=== PATIENT | male | born 1995 | race Two or more races ===

== ENCOUNTER 2020-02-12 14:08 | Inpatient (IN) | payer OTHER ==
--- NOTE | 2020-02-12 15:39 | BHS.RME ---
Substance Use & Tx History - Substance Use History Heroin Substance amount: 4-5 bags Frequency of use: Daily Substance route: Inhalation (ex: sniffing or snorting) Date of Last Use: 02/11/20 (First use age 15 y, No OD, has a Narcan kit ) Nicotine Substance amount: one pack Frequency of use: Daily Date of Last Use: 02/12/20 (Began age 11 y) - Last Treatment Date of last treatment: 2014 Treatment type: Substance Use Disorder (BONG) Where was last treatment: Detox Physical/Psych/Mental Status - Behavior General Behavior: Decreased activity Eye Contact: Normal - Cooperativeness Cooperativeness: Cooperative - Thinking Thought Processes: Tight Thought content: Future oriented - Physical Health Problems Is patient presently having any pain?: No Does patient presently have any injuries (include location): No Does patient currently have a fever: No COWS - Scale Resting Pulse: 0= [place] 80 or Below Sweatin=Flushed/Facial Moisture Restless Observation: 1= Difficult to Sit Still Pupil Size: 0= Normal to Room Light Bone or Joint Aches: 2= Severe Diffuse Aches Runny Nose/ Eye Tearin= Runny Nose/Eyes GI Upset > 30mins: 2= Nausea/Diarrhea Tremor Observation: 0= None Yawning Observation: 0= None Anxiety or Irritability: 1=Feels Anxious/Irritable Goose Flesh Skin: 0=Smooth Skin COWS Score: 10
--- NOTE | 2020-02-12 16:41 | HP ---
COWS - Scale Resting Pulse: 0= [place] 80 or Below Sweatin=Flushed/Facial Moisture Restless Observation: 1= Difficult to Sit Still Pupil Size: 1= Pupils >than Normal Bone or Joint Aches: 4=Acute Joint/Muscle Pain Runny Nose/ Eye Tearin= Runny Nose/Eyes GI Upset > 30mins: 3= Vomiting/Diarrhea (vomiting x 2, diarrhea x 3) Tremor Observation: 0= None Yawning Observation: 1= 1-2x During Session Anxiety or Irritability: 2=Irritable/Anxious Goose Flesh Skin: 3=Piloerection COWS Score: 19 CIWA Score - Admission Criteria OASAS Guidelines: Admission for Medically Managed Detox: Requires at least one of the followin. CIWA greater than 12 2. Seizures within the past 24 hours 3. Delirium tremens within the past 24 hours 4. Hallucinations within the past 24 hours 5. Acute intervention needed for co occurring medical disorder 6. Acute intervention needed for co occurring psychiatric disorder 7. Severe withdrawal that cannot be handled at a lower level of care (continued vomiting, continued diarrhea, abnormal vital signs) requiring intravenous medication and/or fluids 8. Admitting History and Physical - Smoking History Smoking history: Current every day smoker Have you smoked in the past 12 months: Yes Aproximately how many cigarettes per day: 6 - Alcohol/Substance Use Hx Alcohol Use: Yes Admission [facility] Chief Complaint: Seeking admission to detox from heroin Allergies/Adverse Reactions: Allergies Allergy/AdvReac Type Severity Reaction Status Date / Time penicillin G Allergy Unknown UNKNOWN Verified 02/12/20 17:27 History of Present Illness: 24 years old male with 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 He has medical history of asthma and psych. history of depression, bipolar disorder, ADHD and anxiety. Denies suicide attempt/ suicidal ideation at this time. Patient denies blackouts or overdose. As documented 04/20/2015, patient in his prior admission was noncompliant with unit regulations, had verbal altercations with staff, refused medical interventions and had difficulties following directions. Treatment contract obtained by the counselor, Mr. Aj Hernandez. Patient agrees to administrative discharge for any violations as detailed above and to complete detoxification as specified. Exam Limitations: No Limitations - Ebola screening Have you traveled outside of the country in the last 21 days: No Have you had contact with anyone from an Ebola affected area: No Have you been sick,other than usual withdrawal symptoms: No Do you have a fever: No - Review of Systems Constitutional: Chills, Malaise, Changes in sleep EENT: reports: No Symptoms Reported, Nose Congestion Respiratory: reports: No Symptoms reported Cardiac: reports: No Symptoms Reported GI: reports: Diarrhea, Nausea, Poor Appetite, Poor Fluid Intake, Vomiting, Abdominal cramping Musculoskeletal: reports: Back Pain, Muscle Pain Integumentary: reports: Dryness, Flushing Neuro: reports: Headache, Tremors Endocrine: reports: No Symptoms Reported Hematology: reports: No Symptoms Reported Psychiatric: reports: Mood/Affect Appropiate, Orientated x3, Anxious, Depressed Other Systems: Reviewed and Negative Patient History - Patient Medical History Hx Anemia: No Hx Asthma: Yes (Not on medication) Hx Chronic Obstructive Pulmonary Disease (COPD): No Hx Cancer: No Hx Cardiac Disorders: No Hx Congestive Heart Failure: No Hx Hypertension: No Hx Hypercholesterolemia: No Hx Pacemaker: No HX Cerebrovascular Accident: No Hx Seizures: No Hx Dementia: No Hx Diabetes: No Hx Gastrointestinal Disorders: No Hx Liver Disease: No Hx Genitourinary Disorders: No Hx Sexually Transmitted Disorders: No Hx Renal Disease (ESRD): No Hx Thyroid Disease: No Hx Human Immunodeficiency Virus (HIV): No Hx Hepatitis C: No Hx Depression: Yes (+ Anxiety - Not on medication) Hx Suicide Attempt: No (Denies suicidal ideation at this time) Hx Bipolar Disorder: No Hx Schizophrenia: No - Patient Surgical History Past Surgical History: No Hx Neurologic Surgery: No Hx Cataract Extraction: No Hx Cardiac Surgery: No Hx Lung Surgery: No Hx Abdominal Surgery: No Hx Appendectomy: No Hx Cholecystectomy: No Hx Genitourinary Surgery: No Hx Section: No Hx Orthopedic Surgery: No Anesthesia Reaction: No - PPD History Previous Implant?: Yes Documented Results: Negative w/proof Implanted On Prior R Admission?: Yes Date: 04/20/15 PPD to be Administered?: Yes - Reproductive History Patient is a Female of Child Bearing Age (11 -55 yrs old): No (Male) - Smoking Cessation Smoking history: Current every day smoker Have you smoked in the past 12 months: Yes Aproximately how many cigarettes per day: 20 Hx Chewing Tobacco Use: No Initiated information on smoking cessation: Yes 'Breaking Loose' booklet given: 02/12/20 - Substance & Tx. History Hx Alcohol Use: No Hx Substance Use: Yes Substance Use Type: Heroin, Opiates Hx Substance Use Treatment: Yes ([facility]) - Substances abused Heroin Substance route: Inhalation Frequency: Daily Amount used: 5 bags Age of first use: 15 Date of last use: 02/11/20 Admission Physical [facility]am [facility] Physical General Appearance: Yes: Moderate Distress, Tremorous, Irritable, Anxious HEENTM: Yes: Within Normal Limits Respiratory: Yes: Lungs Clear, Normal Breath Sounds, No Respiratory Distress Neck: Yes: Within Normal Limits Breast: Yes: Breast Exam Deferred Cardiology: Yes: Regular Rhythm, Regular Rate Abdominal: Yes: Normal Bowel Sounds, Soft Genitourinary: Yes: Within Normal Limits Back: Yes: Normal Inspection Musculoskeletal: Yes: Within Normal Limits Extremities: Yes: Tremors Neurological: Yes: Within Normal Limits Integumentary: Yes: Warm Lymphatic: Yes: Within Normal Limits - Diagnostic (1) Opioid dependence with withdrawal Current Visit: Yes Status: Acute (2) ADHD (attention deficit hyperactivity disorder) Current Visit: No Status: Chronic (3) Asthma Current Visit: Yes Status: Chronic (4) Bipolar II disorder Current Visit: Yes Status: Chronic (5) Nicotine dependence Current Visit: Yes Status: Chronic Qualifiers: Nicotine product type: cigarettes Substance use status: uncomplicated Qualified Code(s): F17.210 - Nicotine dependence, cigarettes, uncomplicated Cleared for Admission [facility] - Detox or Rehab [facility] Level of Care: Medically Managed Detox Regimen/Protocol: Methadone Claeared for Rehab Admission: No Inpatient Rehab Admission - Rehab Decision to Admit Inpatient rehab admission?: No
[2020-02-12] MEDS ORDERED: NICOTINE POLACRILEX 2 MG GUM BUC PRN (17:15)
[2020-02-12] MEDS ORDERED: METHADONE HCL 10 MG TABLET (FOR DETOX USE ONLY) PO ONE (17:15)
[2020-02-12] MEDS ORDERED: ACETAMINOPHEN 325 MG TABLET (FP) PO PRN ×2 (17:15)
[2020-02-12] MEDS ORDERED: IBUPROFEN 400 MG TABLET (FP) PO PRN (17:15)
[2020-02-12] MEDS ORDERED: MAG HYDROX/AL HYDROX/SIMETH 30 ML UNIT-DOSE CUP PO PRN (17:15)
[2020-02-12] MEDS ORDERED: hydrOXYzine PAMOATE 25 MG CAPSULE (FP) PO PRN (17:15)
[2020-02-12] MEDS ORDERED: ONDANSETRON *ODT* 4 MG TABLET SL ONE (17:15)
[2020-02-12] MEDS ORDERED: MAGNESIUM CITRATE 300 ML BOTTLE PO PRN (17:15)
[2020-02-12] MEDS ORDERED: BISMUTH SUBSALICYLATE 524 MG/30 ML UD PO PRN (17:15)
[2020-02-12] MEDS ORDERED: MAGNESIUM HYDROX 2400MG/30ML ORAL SUSPENSION 30 ML CUP PO PRN (17:15)
[2020-02-12] MEDS ORDERED: MENTHOL/PHENOL 1 EACH UD MM PRN (17:15)
[2020-02-12] MEDS ORDERED: ALBUTEROL SO4 HFA INHALER IH PRN (17:19)
[2020-02-12 17:54] VITALS: BMI 21.7
[2020-02-12] MEDS: MELATONIN 5 MG TABLETS PO SCH (22:28)
[2020-02-12] MEDS: THIAMINE HCL 100 MG TABLET (FP) PO SCH (22:28)
[2020-02-13] MEDS ORDERED: METHADONE HCL 5 MG TABLET (FOR DETOX USE ONLY) PO ONE (10:00)
[2020-02-13] MEDS: PRENATAL VITAMINS W/ FOLIC ACID TABLET (FP) PO SCH (10:27)
[2020-02-13] MEDS: NICOTINE 14 MG/24 HOURS TOPICAL PATCH TD SCH (10:28)
[2020-02-13 10:32] LABS: HEMATOCRIT 36.9 % (35.4-49); HEMOGLOBIN 12.2 GM/dL (11.7-16.9); MCH 29.3 pg (25.7-33.7); MEAN CELL VOLUME 88.7 fl (80-96); MEAN PLT VOLUME 8.2 fl (7.5-11.1); PLATELET COUNT 320 K/MM3 (134-434); RBC 4.16 M/mm3 (4.00-5.60); RDW 14.1 % (11.9-15.9); WHITE BLOOD COUNT 6.4 K/mm3 (4.0-10.0)
[2020-02-13 10:38] LABS: ALBUMIN 3.5 g/dl (3.4-5.0); BILIRUBIN,TOTAL 0.3 mg/dL (0.2-1); BLOOD UREA NITROGEN 7.9 mg/dL (7-18); CALCIUM 9.2 mg/dL (8.5-10.1); CREATININE 0.9 mg/dL (0.55-1.3); POTASSIUM 4.5 mmol/L (3.5-5.1); TOT PROT 6.6 g/dl (6.4-8.2)
--- NOTE | 2020-02-13 12:43 | PN ---
BHS COWS - Scale Resting Pulse: 0= [place] 80 or Below Sweatin= Chills/Flushing Restless Observation: 1= Difficult to Sit Still Pupil Size: 0= Normal to Room Light Bone or Joint Aches: 2= Severe Diffuse Aches Runny Nose/ Eye Tearin= Nasal Congestion GI Upset > 30mins: 0= None Tremor Observation of Outstretched Hands: 0= None Yawning Observation: 0= None Anxiety or Irritability: 2=Irritable/Anxious Goose Flesh Skin: 0=Smooth Skin COWS Score: 7 BHS Progress Note (SOAP) Subjective: Complaints of anxiety, body aches, chills and sweats. Objective: 02/13/20 12:41 Vital Signs 02/13/20 02/13/20 05:14 08:50 Temperature 98.2 F 98.6 F Pulse Rate 46 L 56 L Respiratory 16 18 Rate Blood Pressure 125/57 L 125/77 O2 Sat by Pulse 98 99 Oximetry (%) Laboratory Last Values WBC 6.4 K/mm3 (4.0-10.0) 02/13/20 07:20 RBC 4.16 M/mm3 (4.00-5.60) 02/13/20 07:20 Hgb 12.2 GM/dL (11.7-16.9) 02/13/20 07:20 Hct 36.9 % (35.4-49) 02/13/20 07:20 MCV 88.7 fl (80-96) 02/13/20 07:20 MCH 29.3 pg (25.7-33.7) 02/13/20 07:20 MCHC 33.0 g/dl (32.0-35.9) 02/13/20 07:20 RDW 14.1 % (11.9-15.9) 02/13/20 07:20 Plt Count 320 K/MM3 (134-434) 02/13/20 07:20 MPV 8.2 fl (7.5-11.1) 02/13/20 07:20 Sodium 141 mmol/L (136-145) 02/13/20 07:20 Potassium 4.5 mmol/L (3.5-5.1) 02/13/20 07:20 Chloride 108 mmol/L (98-107) H 02/13/20 07:20 Carbon Dioxide 25 mmol/L (21-32) 02/13/20 07:20 Anion Gap 8 MMOL/L (8-16) 02/13/20 07:20 BUN 7.9 mg/dL (7-18) 02/13/20 07:20 Creatinine 0.9 mg/dL (0.55-1.3) 02/13/20 07:20 Est GFR (CKD-EPI)AfAm 136.14 02/13/20 07:20 Est GFR (CKD-EPI)NonAf 117.46 02/13/20 07:20 Random Glucose 85 mg/dL (74-106) 02/13/20 07:20 Calcium 9.2 mg/dL (8.5-10.1) 02/13/20 07:20 Total Bilirubin 0.3 mg/dL (0.2-1) 02/13/20 07:20 AST 14 U/L (15-37) L 02/13/20 07:20 ALT 21 U/L (13-61) 02/13/20 07:20 Alkaline Phosphatase 71 U/L (45-117) 02/13/20 07:20 Total Protein 6.6 g/dl (6.4-8.2) 02/13/20 07:20 Albumin 3.5 g/dl (3.4-5.0) 02/13/20 07:20 Syphilis Serology Non-reactive (NONREACTIVE) 02/13/20 07:20 Labs noted. Assessment: 02/13/20 12:42 Alert and oriented x 3, in no acute respiratory distress. Full ROM, ambulating in the unit without assistance. Withdrawal symptoms. Plan: Continue detox protocol.
[2020-02-13] MEDS: cloNIDine HCL 0.1 MG TABLET PO PRN ×2 (14:08→22:14)
--- NOTE | 2020-02-13 14:37 | CONSULT ---
[facility] Psychiatric Consult - Data Date of interview: 02/13/20 Admission source: [facility] Identifying data: Revisit to [facility] and admission to [address] [place] [address] for this 24 y/o AA male self-referred for detoxification treatment. BONG issues : heroin, nicotine. Patient is single, no dependents, homeless, unemployed and supported on Public Assistance. Substance Abuse History: Discussed with the patient. BONG profile as follows : Smoking history: Current every day smoker. Have you smoked in the past 12 months: Yes. Aproximately how many cigarettes per day: 20. Hx Chewing Tobacco Use: No. Initiated information on smoking cessation: Yes. 'Breaking Loose' b ooklet given: 02/12/20. - Substance & Tx. History. Hx Alcohol Use: No. Hx Substance Use: Yes. Substance Use Type: Heroin, Opiates. Hx Substance Use Treatment: Yes ([facility]). - Substances abused. Heroin. Substance route: Inhalation. Frequency: Daily. Amount used: 5 bags. Age of first use: 15. Date of last use: 02/11/20 Medical History: Remarkable for bronchial asthma. Psychiatric History: Patient endorses history of two psychiatric hospitalizations ([facility]). Diagnosed with MDD, Anxiety Disorder and ADHD. Mr Ayala used to be managed with a regimen of buspar + mirtazapine. Patient reports that he has been lost to follow-up since his release from skilled nursing in August 2019 (after five years of usp). He denies history of suicide attempts. Physical/Sexual Abuse/Trauma History: No history of abuse. Trauma : just released after serving a sentence of five years for armed robbery. Additional Comment: No toxicology for review. Mental Status Exam - Mental Status Exam Alert and Oriented to: Time, Place, Person Cognitive Function: Good Patient Appearance: Well Groomed Mood: Hopeful Affect: Appropriate, Normal Range Patient Behavior: Fatigued, Appropriate, Cooperative Speech Pattern: Clear, Appropriate Voice Loudness: Normal Thought Process: Intact, Goal Oriented Thought Disorder: Not Present Hallucinations: Denies Suicidal Ideation: Denies Homicidal Ideation: Denies Insight/Judgement: Poor Sleep: Poorly, Difficulty falling asleep Appetite: Good Gait/Station: Normal Psychiatric Findings - Problem List ([place] 1, 2,3) (1) Opioid dependence with withdrawal Current Visit: Yes Status: Acute (2) Nicotine dependence Current Visit: Yes Status: Chronic Qualifiers: Nicotine product type: cigarettes Substance use status: uncomplicated Qualified Code(s): F17.210 - Nicotine dependence, cigarettes, uncomplicated (3) Drug-induced mood disorder Current Visit: Yes Status: Chronic (4) Insomnia Current Visit: Yes Status: Chronic (5) Non-compliance Current Visit: Yes Status: Chronic - Initial Treatment Plan Initial Treatment Plan: Psychoeducation. Sleep hygiene. Detoxification in [place]. Motivational counseling. At patient's request, will resume : buspar 5 mg po bid + remeron 15 mg po hs. Side effects/benefits of both drugs are discussed with the patient. Mr Ayala is in agreement with this plan of care. Consent (verbal) granted to MD. Christian.
--- NOTE | 2020-02-13 15:01 | EKG ---
Test Reason : Blood Pressure : / mmHG Vent. Rate : 056 BPM Atrial Rate : 056 BPM P-R Int : 178 ms QRS Dur : 090 ms QT Int : 376 ms P-R-T Axes : 071 061 071 degrees QTc Int : 362 ms SINUS BRADYCARDIA WITH SINUS ARRHYTHMIA OTHERWISE NORMAL ECG NO PREVIOUS ECGS AVAILABLE Confirmed by CLEO VEGA MD ([id number]) on 02/13/2020 3:01:39 PM Referred By: KWAME HEIN Confirmed By:CLEO VEGA MD
[2020-02-13] MEDS: MIRTAZAPINE 15 MG TABLET (FP) PO SCH (22:14)
[2020-02-13] MEDS: THIAMINE HCL 100 MG TABLET (FP) PO SCH (22:14)
[2020-02-13] MEDS: busPIRone HCL 5 MG TABLET PO SCH (22:14)
[2020-02-13] MEDS: METHOCARBAMOL 500 MG TABLET PO PRN (22:14)
[2020-02-13] MEDS: MELATONIN 5 MG TABLETS PO SCH (22:55)
[2020-02-14] MEDS ORDERED: METHADONE HCL 10 MG TABLET (FOR DETOX USE ONLY) PO ONE (10:00)
[2020-02-14] MEDS: PRENATAL VITAMINS W/ FOLIC ACID TABLET (FP) PO SCH (10:49)
[2020-02-14] MEDS: METHOCARBAMOL 500 MG TABLET PO PRN (10:49)
[2020-02-14] MEDS: NICOTINE 14 MG/24 HOURS TOPICAL PATCH TD SCH (10:49)
[2020-02-14] MEDS: busPIRone HCL 5 MG TABLET PO SCH ×2 (10:49→22:24)
--- NOTE | 2020-02-14 13:19 | PN ---
BHS COWS - Scale Resting Pulse: 1= [place] 81-100 Sweatin= Chills/Flushing Restless Observation: 0= Sits Still Pupil Size: 0= Normal to Room Light Bone or Joint Aches: 1= Mild Discomfort Runny Nose/ Eye Tearin= None GI Upset > 30mins: 1= Stomach Cramp Tremor Observation of Outstretched Hands: 2= Slight Tremor Visible Yawning Observation: 0= None Anxiety or Irritability: 0= None Goose Flesh Skin: 0=Smooth Skin COWS Score: 6 BHS Progress Note (SOAP) Subjective: Body aches, poor appetite (on ensure but takes a long time to drink ensure because of withdrawal sxs), sweating perfusely (changed bed linen twice), tremor, diarrhea. Objective: 02/14/20 13:20 Last Vital Signs Temp Pulse Resp BP Pulse Ox 97.3 F L 99 H 18 110/74 100 02/14/20 09:10 02/14/20 09:10 02/14/20 09:10 02/14/20 09:10 02/14/20 09:10 Laboratory Tests 02/12/20 02/13/20 02/13/20 18:15 07:20 07:20 WBC 6.4 RBC 4.16 Hgb 12.2 Hct 36.9 MCV 88.7 MCH 29.3 MCHC 33.0 RDW 14.1 Plt Count 320 MPV 8.2 Sodium 141 Potassium 4.5 Chloride 108 H Carbon Dioxide 25 Anion Gap 8 BUN 7.9 Creatinine 0.9 Est GFR (CKD-EPI)AfAm 136.14 Est GFR (CKD-EPI)NonAf 117.46 Random Glucose 85 Calcium 9.2 Total Bilirubin 0.3 AST 14 L ALT 21 Alkaline Phosphatase 71 Total Protein 6.6 Albumin 3.5 Syphilis Serology Cancelled 02/13/20 07:20 WBC RBC Hgb Hct MCV MCH MCHC RDW Plt Count MPV Sodium Potassium Chloride Carbon Dioxide Anion Gap BUN Creatinine Est GFR (CKD-EPI)AfAm Est GFR (CKD-EPI)NonAf Random Glucose Calcium Total Bilirubin AST ALT Alkaline Phosphatase Total Protein Albumin Syphilis Serology Non-reactive Labs reviewed Assessment: 02/14/20 13:21 Withdrawal sxs Plan: Continue detox Encouraged PO water intake Patient for discharge tomorrow; discharge date extended to Saturday02/16/20 along with methadone 5mg on Saturday due to increased withdrawal sxs
[2020-02-14] MEDS: cloNIDine HCL 0.1 MG TABLET PO PRN ×2 (13:49→22:24)
[2020-02-14] MEDS: MIRTAZAPINE 15 MG TABLET (FP) PO SCH (22:24)
[2020-02-14] MEDS: THIAMINE HCL 100 MG TABLET (FP) PO SCH (22:24)
[2020-02-14] MEDS: MELATONIN 5 MG TABLETS PO SCH (22:25)
[2020-02-15] MEDS ORDERED: METHADONE HCL 5 MG TABLET (FOR DETOX USE ONLY) PO ONE (06:00)
[2020-02-15] MEDS: cloNIDine HCL 0.1 MG TABLET PO PRN (10:05)
[2020-02-15] MEDS: busPIRone HCL 5 MG TABLET PO SCH ×2 (10:05→21:43)
[2020-02-15] MEDS: PRENATAL VITAMINS W/ FOLIC ACID TABLET (FP) PO SCH (10:07)
[2020-02-15] MEDS: NICOTINE 14 MG/24 HOURS TOPICAL PATCH TD SCH (10:07)
--- NOTE | 2020-02-15 12:48 | PN ---
BHS COWS - Scale Resting Pulse: 0= [place] 80 or Below Sweatin= No chills or Flushing Restless Observation: 0= Sits Still Pupil Size: 0= Normal to Room Light Bone or Joint Aches: 1= Mild Discomfort Runny Nose/ Eye Tearin= Nasal Congestion GI Upset > 30mins: 1= Stomach Cramp Tremor Observation of Outstretched Hands: 1= Tremor [place], Not Seen Yawning Observation: 1= 1-2x During Session Anxiety or Irritability: 2=Irritable/Anxious Goose Flesh Skin: 0=Smooth Skin COWS Score: 7 BHS Progress Note (SOAP) Subjective: alert,irritable,anxious,interrupted sleep,body ache Objective: 02/15/20 12:47 Vital Signs Temperature 98.8 F 02/15/20 09:03 Pulse Rate 78 02/15/20 09:50 Respiratory Rate 18 02/15/20 09:03 Blood Pressure 120/60 02/15/20 09:50 O2 Sat by Pulse Oximetry (%) 99 02/15/20 09:03 Assessment: 02/15/20 12:47 withdrawal symptom Plan: continue detox methadone regimen,discharge in am
--- NOTE | 2020-02-15 15:59 | PN ---
[facility] Progress Note Note: addendum new specimen for covid 19 collected by Eron Ashby RN appreciated
[2020-02-15] MEDS: METHOCARBAMOL 500 MG TABLET PO PRN (20:39)
[2020-02-15] MEDS: MELATONIN 5 MG TABLETS PO SCH (21:43)
[2020-02-15] MEDS: MIRTAZAPINE 15 MG TABLET (FP) PO SCH (21:43)
[2020-02-15] MEDS: THIAMINE HCL 100 MG TABLET (FP) PO SCH (21:43)
[2020-02-16] MEDS ORDERED: METHADONE HCL 5 MG TABLET PO ONE (06:00)
--- NOTE | 2020-02-16 08:40 | DS ---
[facility] Detox Discharge Summary Admission Date: 02/12/20 - Physical Exam Results Vital Signs: Vital Signs Temperature 98.2 F 02/16/20 05:36 Pulse Rate 81 02/16/20 05:36 Respiratory Rate 18 02/16/20 05:36 Blood Pressure 100/52 L 02/16/20 05:36 O2 Sat by Pulse Oximetry (%) 98 02/16/20 05:36 - Medication Discharge Medications: Ambulatory Orders Albuterol Sulfate Inhaler - [Ventolin Hfa Inhaler -] 2 inh PO Q4H PRN 04/18/15 hydrOXYzine PAMOATE [Vistaril -] 75 mg PO HS 04/18/15 Mirtazapine [Remeron -] 45 mg PO HS #30 tablet 04/19/15
[2020-02-16 09:49] VITALS: TEMP 98
[2020-02-16] MEDS: PRENATAL VITAMINS W/ FOLIC ACID TABLET (FP) PO SCH (12:20)
[2020-02-16] MEDS: NICOTINE 14 MG/24 HOURS TOPICAL PATCH TD SCH (12:20)
[2020-02-16] MEDS: busPIRone HCL 5 MG TABLET PO SCH (12:20)
[2020-02-16 13:46] VITALS: BP 101/51; PULSE 55
--- NOTE | 2020-02-16 14:06 | PN ---
[facility] Progress Note Note: pt is still waiting on COVID 19 test result. Lab at [place] ext [phone] has been called to see if there is any way pt test result can be expedited so pt can be d/c from detox an sent to his next level of care. However lab insist they cannot give out [facility] phone number nor any time to any results regarding covid swab testing. pt will remain in detox until test result arrive. pt is also homeless and will not be to pt best interest to leave d/t chance of relapse.
--- NOTE | 2020-02-16 14:21 | DS ---
[facility] Detox Discharge Summary Admission Date: 02/12/20 Discharge Date: 02/16/20 - History Present History: Opioid Dependence, Sedative Dependence - Physical Exam Results Vital Signs: Vital Signs Temperature 98.0 F 02/16/20 13:00 Pulse Rate 55 L 02/16/20 13:00 Respiratory Rate 17 02/16/20 13:00 Blood Pressure 101/51 L 02/16/20 13:00 O2 Sat by Pulse Oximetry (%) 100 02/16/20 13:00 Pertinent Admission Physical Exam Findings: Vital Signs Temperature 98.0 F 02/16/20 13:00 Pulse Rate 55 L 02/16/20 13:00 Respiratory Rate 17 02/16/20 13:00 Blood Pressure 101/51 L 02/16/20 13:00 O2 Sat by Pulse Oximetry (%) 100 02/16/20 13:00 Laboratory Tests 02/12/20 02/13/20 02/13/20 18:15 07:20 07:20 WBC 6.4 RBC 4.16 Hgb 12.2 Hct 36.9 MCV 88.7 MCH 29.3 MCHC 33.0 RDW 14.1 Plt Count 320 MPV 8.2 Sodium 141 Potassium 4.5 Chloride 108 H Carbon Dioxide 25 Anion Gap 8 BUN 7.9 Creatinine 0.9 Est GFR (CKD-EPI)AfAm 136.14 Est GFR (CKD-EPI)NonAf 117.46 Random Glucose 85 Calcium 9.2 Total Bilirubin 0.3 AST 14 L ALT 21 Alkaline Phosphatase 71 Total Protein 6.6 Albumin 3.5 Syphilis Serology Cancelled COVID-19 (DANIEL) 02/13/20 02/14/20 07:20 15:15 WBC RBC Hgb Hct MCV MCH MCHC RDW Plt Count MPV Sodium Potassium Chloride Carbon Dioxide Anion Gap BUN Creatinine Est GFR (CKD-EPI)AfAm Est GFR (CKD-EPI)NonAf Random Glucose Calcium Total Bilirubin AST ALT Alkaline Phosphatase Total Protein Albumin Syphilis Serology Non-reactive COVID-19 (DANIEL) Not detected aaox3 ambulating no acute distress - Treatment Hospital Course: Detox Protocol Followed, Detoxed Safely, Responded well, Discharged Condition Good, Rehab Referral Accepted - Diagnosis (1) Opioid dependence with withdrawal Current Visit: Yes Status: Chronic (2) Asthma Current Visit: Yes Status: Chronic Qualifiers: Asthma severity: mild Asthma persistence: unspecified Asthma complication type: uncomplicated Qualified Code(s): J45.909 - Unspecified asthma, uncomplicated (3) Bipolar II disorder Current Visit: Yes Status: Chronic (4) Drug-induced mood disorder Current Visit: Yes Status: Chronic (5) Nicotine dependence Current Visit: Yes Status: Chronic Qualifiers: Nicotine product type: cigarettes Substance use status: uncomplicated Qualified Code(s): F17.210 - Nicotine dependence, cigarettes, uncomplicated (6) Non-compliance Current Visit: Yes Status: Chronic (7) Benzodiazepine dependence Current Visit: Yes Status: Chronic (8) ADHD (attention deficit hyperactivity disorder) Current Visit: No Status: Chronic - AMA Did Patient Leave Against Medical Advice: No
== END 2020-02-16 02:59 | disposition other institution (70) | DRG 773 ==
LOC: YASAS 14:08 → Y6N 17:45
PROVIDERS: ADMIT Allergy & Immunology; ATTEND Allergy & Immunology
PROC: HZ2ZZZZ Detoxification Services for Substance Abuse Treatment (ICD-10-PCS; principal; 2020-02-12)
DX: F11.23 Opioid dependence with withdrawal (principal); F17.210 Nicotine dependence, cigarettes, uncomplicated; F19.24 Other psychoactive substance dependence with psychoactive substance-induced mood disorder; F31.81 Bipolar II disorder; J45.909 Unspecified asthma, uncomplicated; F90.9 Attention-deficit hyperactivity disorder, unspecified type; F41.8 Other specified anxiety disorders; Z91.19 Patient's noncompliance with other medical treatment and regimen; Z56.0 Unemployment, unspecified; Z59.0 Homelessness
CPT/HCPCS: 36415; 80053; 85027; 86780; 93005; 93010; J0735; U0003

== ENCOUNTER 2020-02-16 15:06 | Inpatient (IN) | payer OTHER ==
--- NOTE | 2020-02-16 14:22 | HP ---
[facility] Re[facility] Assess/Revision - Admission History Admitted to Rehab from: [facility] - Findings Detox History & Physical reviewed: Yes Concur with findings: Yes Inpatient Rehab Admission - Rehab Decision to Admit Inpatient rehab admission?: Yes - Initial Determination Are CD services needed?: Yes Free of communicable disease: Yes Not in need of hospitalization: Yes - Rehab Admission Criteria Previous failed treatment: Yes Poor recovery environment: Yes Comorbidities: Yes Lacks judgement: Yes Patient is meeting Inpatient Rehab admission criteria:: Yes
[~2020-02-16 15:06] MED LIST: ACETAMINOPHEN 325 MG TABLET (FP) PO PRN; LOPERAMIDE HCL 2 MG CAPSULE PO PRN; MAG HYDROX/AL HYDROX/SIMETH 30 ML UNIT-DOSE CUP PO PRN; MAGNESIUM CITRATE 300 ML BOTTLE PO PRN; MAGNESIUM HYDROX 2400MG/30ML ORAL SUSPENSION 30 ML CUP PO PRN; MENTHOL/PHENOL 1 EACH UD MM PRN; P-EPHED 60MG/TRIPROLIDI 2.5MG TABLET PO PRN; guaiFENesin 200 MG/10 ML 10 ML UNIT-DOSE CUPS PO PRN
--- NOTE | 2020-02-16 15:45 | PN ---
[facility] Progress Note Note: [facility] [address] [place] [address]. Stable. Patient was on 12 mg/day of suboxone; wants to continue. Discussed the protocol with the patient who agrees. He will discuss with his counselor tomorrow,ensure a provider upon discharge, utox and will start as soon as appropriate.
[2020-02-16] MEDS: hydrOXYzine PAMOATE 25 MG CAPSULE (FP) PO PRN (16:42)
[2020-02-16] MEDS: IBUPROFEN 400 MG TABLET (FP) PO PRN (19:38)
[2020-02-16] MEDS: MELATONIN 5 MG TABLETS PO SCH (21:20)
[2020-02-16] MEDS: THIAMINE HCL 100 MG TABLET (FP) PO SCH (21:21)
[2020-02-17] MEDS: hydrOXYzine PAMOATE 25 MG CAPSULE (FP) PO PRN (10:10)
[2020-02-17] MEDS: NICOTINE 21 MG/24 HOURS TOPICAL PATCH TD SCH (10:10)
[2020-02-17] MEDS: PRENATAL VITAMINS W/ FOLIC ACID TABLET (FP) PO SCH (10:10)
[2020-02-17] MEDS: CLOTRIMAZOLE/BETAMET DIPROP TOPICAL CREAM 45 GM TUBE TP SCH ×2 (10:10→21:19)
--- NOTE | 2020-02-17 12:52 | PN ---
[facility] Progress Note (SOAP) Subjective: Patient requesting to re-start Suboxone treatment. States he was on 12 mg/day divided between a dose of 8mg and a dose of 4 mg. Patient Name: Dell Ayala Date: 1995 Address: [place] [address] Sex: Male Rx Written Rx Dispensed Drug Quantity Days Supply Prescriber Name Payment Method Dispenser 12/15/2019 12/15/2019 suboxone 8 mg-2 mg sl film 14 14 Alva Mendez DO Medicaid [facility] Date: 1995 Address: [address] [place] [address] Sex: Male Rx Written Rx Dispensed Drug Quantity Days Supply Prescriber Name Payment Method Dispenser 01/26/2020 01/26/2020 buprenorphine-naloxone 8-2 mg sl tablet 14 14 [facility] [employer] 01/26/2020 01/26/2020 buprenorphine-naloxone 2-0.5 mg sl tablet 28 14 [facility] [employer] Date: 1995 Address: [address] [place] [address] Sex: Male Rx Written Rx Dispensed Drug Quantity Days Supply Prescriber Name Payment Method Dispenser 01/06/2020 01/06/2020 suboxone 8 mg-2 mg sl film 30 30 Pean, Guy J Medicaid [facility] 01/06/2020 01/06/2020 suboxone 4 mg-1 mg sl film 30 30 Pean, Guy J Medicaid [facility] 12/24/2019 12/25/2019 suboxone 8 mg-2 mg sl film 15 [address] [facility] Medicaid [facility] 12/16/2019 12/18/2019 suboxone 4 mg-1 mg sl film 15 15 Pean, Guy J Medicaid [facility] Objective: Physical General Appearance: No apparent distress HEENTM: PERRLA, EOMI, Normocephalic, Respiratory: No Respiratory Distress Neck: supple Abdominal: +Bowel Sounds, Soft Musculoskeletal: full weight bearing, full ROM, steady gait Neurological: sCN 2-12 intact, A+O x4; muscle strength equal bilaterally Vital Signs Period Temp Pulse Resp BP Sys/Sepulveda Pulse Ox Last 24 Hr 97.8 F-98.0 F 63 18 115/75 98-98 02/17/20 12:52 02/18/20 08:37 U tox shows only methadone; last dose was 5 mg in detox. It has been 2 days since last dose. Assessment: opioid dependance 02/17/20 12:59 Plan: Will start suboxone at 4mg BID. Patient has a referral to a program to continue suboxone treatment.
[2020-02-17] MEDS ORDERED: BUPRENORPHINE/NALOXONE 4 MG/1 MG FILM PACKET SL ONE (13:30)
[2020-02-17] MEDS: NICOTINE POLACRILEX 2 MG GUM BUC PRN ×2 (14:46→22:18)
--- NOTE | 2020-02-17 15:23 | CONSULT ---
[facility] Psychiatric Consult - Data Date of interview: 02/17/20 Admission source: Transfer from [address] [place] [address]. Identifying data: First admission to [address] for this 24 y/o AA male who completed detoxification treatment at [address] [place] [address]. Wants to continue to address his BONG issues (heroin, nicotine) + manage co-morbid mood disorderin rehabilitation . Patient is single, no dependents, homeless, unemployed and supported on Public Assistance. Substance Abuse History: Discussed with the patient. BONG profile as follows : Smoking history: Current every day smoker. Have you smoked in the past 12 months: Yes. Aproximately how many cigarettes per day: 20. Hx Chewing Tobacco Use: No. Initiated information on smoking cessation: Yes. 'Breaking Loose' booklet given: 02/12/20. - Substance & Tx. History. Hx Alcohol Use: No. Hx Substance Use: Yes. Substance Use Type: Heroin, Opiates. Hx Substance Use Treatment: Yes ([facility]). - Substances abused. Heroin. Substance route: Inhalation. Frequency: Daily. Amount used: 5 bags. Age of first use: 15. Date of last use: 02/11/20 Medical History: Remarkable for bronchial asthma. Psychiatric History: No chances since my examination of 02/13/20. Patient continues to endorse history of two psychiatric hospitalizations ([facility]). Diagnosed with MDD, Anxiety Disorder and ADHD. Mr Ayala used to be managed with a regimen of buspar + mirtazapine. Patient reports that he has been lost to follow-up since his release from jail in August 2019 (after five years of group home). He denies history of suicide attempts. Physical/Sexual Abuse/Trauma History: No history of abuse. Trauma : just released after serving a sentence of five years for armed robbery. Additional Comment: No toxicology for review. Mental Status Exam - Mental Status Exam Alert and Oriented to: Time, Place, Person Cognitive Function: Good Patient Appearance: Well Groomed Mood: Hopeful, Euthymic Affect: Appropriate, Normal Range Patient Behavior: Appropriate, Cooperative (pleasant, friendly with staff) Speech Pattern: Clear, Appropriate Voice Loudness: Normal Thought Process: Intact, Goal Oriented Thought Disorder: Not Present Hallucinations: Denies Suicidal Ideation: Denies Homicidal Ideation: Denies Insight/Judgement: Fair Sleep: Well Appetite: Good Gait/Station: Normal Psychiatric Findings - Problem List ([place] 1, 2,3) (1) Opioid dependence Current Visit: Yes Status: Chronic (2) Nicotine dependence Current Visit: Yes Status: Chronic Qualifiers: Nicotine product type: cigarettes Substance use status: uncomplicated Qualified Code(s): F17.210 - Nicotine dependence, cigarettes, uncomplicated (3) History of attention deficit hyperactivity disorder (ADHD) Current Visit: Yes Status: Chronic (4) Substance induced mood disorder Current Visit: Yes Status: Chronic (5) Insomnia Current Visit: Yes Status: Chronic - Initial Treatment Plan Initial Treatment Plan: Psychoeducation. Rehabilitation. Sleep hygiene. Support. Motivational sessions. Medications resumed for continuity of care : remeron 15 mg po hs + buspar 10 mg po bid + seroquel 50 mg po bid (just added to the regimen at patient's specific request). Side effects/benefits of these molecules are discussed with the patient. Mr Ayala report good benefits from seroquel (was on that drug in the past). He gave consent (verbal) to MD. Christian.
[2020-02-17] MEDS: THIAMINE HCL 100 MG TABLET (FP) PO SCH (21:16)
[2020-02-17] MEDS: MIRTAZAPINE 15 MG TABLET (FP) PO SCH (21:16)
[2020-02-17] MEDS: MELATONIN 5 MG TABLETS PO SCH (21:17)
[2020-02-17] MEDS: QUEtiapine FUMARATE 50 MG TABLET PO SCH (21:17)
[2020-02-17] MEDS: busPIRone HCL 10 MG TABLET (FP) PO SCH (21:17)
[2020-02-17] MEDS: BUPRENORPHINE/NALOXONE 4 MG/1 MG FILM PACKET SL SCH (21:17)
[2020-02-18] MEDS ORDERED: METHOCARBAMOL 500 MG TABLET PO PRN (08:41)
[2020-02-18] MEDS: GABAPENTIN 300 MG CAPSULE PO SCH (10:09)
[2020-02-18] MEDS: QUEtiapine FUMARATE 50 MG TABLET PO SCH ×2 (10:09→21:17)
[2020-02-18] MEDS: PRENATAL VITAMINS W/ FOLIC ACID TABLET (FP) PO SCH (10:10)
[2020-02-18] MEDS: NICOTINE 21 MG/24 HOURS TOPICAL PATCH TD SCH (10:10)
[2020-02-18] MEDS: BUPRENORPHINE/NALOXONE 4 MG/1 MG FILM PACKET SL SCH ×2 (10:10→16:30)
[2020-02-18] MEDS: busPIRone HCL 10 MG TABLET (FP) PO SCH ×2 (10:10→21:17)
[2020-02-18] MEDS: CLOTRIMAZOLE/BETAMET DIPROP TOPICAL CREAM 45 GM TUBE TP SCH ×2 (10:11→21:17)
[2020-02-18] MEDS ORDERED: PT OWN MED DRAWER 7, Y5N ONE (10:13)
[2020-02-18] MEDS: NICOTINE POLACRILEX 2 MG GUM BUC PRN (12:14)
[2020-02-18] MEDS ORDERED: MASKS NR ONE (16:45)
[2020-02-18] MEDS: THIAMINE HCL 100 MG TABLET (FP) PO SCH (21:17)
[2020-02-18] MEDS: MELATONIN 5 MG TABLETS PO SCH (21:17)
[2020-02-18] MEDS: MIRTAZAPINE 15 MG TABLET (FP) PO SCH (21:17)
[2020-02-19] MEDS: QUEtiapine FUMARATE 50 MG TABLET PO SCH ×2 (10:25→21:41)
[2020-02-19] MEDS: GABAPENTIN 300 MG CAPSULE PO SCH (10:25)
[2020-02-19] MEDS: CLOTRIMAZOLE/BETAMET DIPROP TOPICAL CREAM 45 GM TUBE TP SCH ×2 (10:25→21:41)
[2020-02-19] MEDS: busPIRone HCL 10 MG TABLET (FP) PO SCH ×2 (10:25→21:41)
[2020-02-19] MEDS: BUPRENORPHINE/NALOXONE 4 MG/1 MG FILM PACKET SL SCH ×2 (10:25→16:25)
[2020-02-19] MEDS: NICOTINE 21 MG/24 HOURS TOPICAL PATCH TD SCH (10:25)
[2020-02-19] MEDS: PRENATAL VITAMINS W/ FOLIC ACID TABLET (FP) PO SCH (10:25)
[2020-02-19] MEDS: NICOTINE POLACRILEX 2 MG GUM BUC PRN ×4 (10:26→21:41)
[2020-02-19] MEDS ORDERED: ONDANSETRON *ODT* 4 MG TABLET SL PRN (12:42)
[2020-02-19] MEDS: THIAMINE HCL 100 MG TABLET (FP) PO SCH (21:41)
[2020-02-19] MEDS: MIRTAZAPINE 15 MG TABLET (FP) PO SCH (21:41)
[2020-02-19] MEDS: MELATONIN 5 MG TABLETS PO SCH (21:41)
[2020-02-20] MEDS: PRENATAL VITAMINS W/ FOLIC ACID TABLET (FP) PO SCH (09:31)
[2020-02-20] MEDS: busPIRone HCL 10 MG TABLET (FP) PO SCH ×2 (09:32→21:14)
[2020-02-20] MEDS: QUEtiapine FUMARATE 50 MG TABLET PO SCH ×2 (09:32→21:14)
[2020-02-20] MEDS: GABAPENTIN 300 MG CAPSULE PO SCH (09:32)
[2020-02-20] MEDS: NICOTINE 21 MG/24 HOURS TOPICAL PATCH TD SCH (09:32)
[2020-02-20] MEDS: CLOTRIMAZOLE/BETAMET DIPROP TOPICAL CREAM 45 GM TUBE TP SCH ×2 (09:33→21:14)
[2020-02-20] MEDS ORDERED: PT OWN MED DRAWER 7, Y5N ONE (09:33)
[2020-02-20] MEDS: BUPRENORPHINE/NALOXONE 4 MG/1 MG FILM PACKET SL SCH ×2 (09:34→16:44)
[2020-02-20 12:00] LABS: PH,URINE >= 9.0 (5.0-8.0); URINE APPEARANCE CLOUDY; URINE BILIRUBIN NEGATIVE (NEGATIVE); URINE COLOR YELLOW; URINE GLUCOSE (UA) NEGATIVE (NEGATIVE); URINE KETONE NEGATIVE (NEGATIVE); URINE LEUK ESTERASE NEGATIVE (NEGATIVE); URINE NITRITE NEGATIVE (NEGATIVE); URINE PROTEIN TRACE (NEGATIVE); URINE UROBILINOGEN 0.2 mg/dL (0.2-1.0)
--- NOTE | 2020-02-20 12:39 | PN ---
[facility] Progress Note Note: Patient is referred for complaints of burning on urination. On exam, patient is in no acute distress. He reports burning on urination started yesterday and has occurred today as well. He denies frequency, hematuria, urgency, chills, N/V, abdominal pain or any other associated symptoms. Patient reports he is voiding freely. Vital Signs 02/20/20 06:45 Temperature 97.5 F L Pulse Rate 73 Respiratory 18 Rate Blood Pressure 120/66 O2 Sat by Pulse 99 Oximetry (%) Laboratory Last Values Urine Color Yellow 02/20/20 10:52 Urine Appearance Cloudy 02/20/20 10:52 Urine pH >= 9.0 (5.0-8.0) H D 02/20/20 10:52 Ur Specific [place] 1.017 (1.010-1.035) 02/20/20 10:52 Urine Protein Trace (NEGATIVE) 02/20/20 10:52 Urine Glucose (UA) Negative (NEGATIVE) 02/20/20 10:52 Urine Ketones Negative (NEGATIVE) 02/20/20 10:52 Urine Blood Negative (NEGATIVE) 02/20/20 10:52 Urine Nitrite Negative (NEGATIVE) 02/20/20 10:52 Urine Bilirubin Negative (NEGATIVE) 02/20/20 10:52 Urine Urobilinogen 0.2 mg/dL (0.2-1.0) 02/20/20 10:52 Ur Leukocyte Esterase Negative (NEGATIVE) 02/20/20 10:52 HIV Ag/Ab Combo Qual Negative (NEGATIVE) 02/20/20 07:10 UA negative Patient instructed to increase oral fluid intake
[2020-02-20] MEDS: NICOTINE POLACRILEX 2 MG GUM BUC PRN ×3 (13:42→21:16)
[2020-02-20] MEDS: MELATONIN 5 MG TABLETS PO SCH (21:14)
[2020-02-20] MEDS: MIRTAZAPINE 15 MG TABLET (FP) PO SCH (21:14)
[2020-02-20] MEDS: THIAMINE HCL 100 MG TABLET (FP) PO SCH (21:14)
--- NOTE | 2020-02-20 22:46 | PN ---
S Progress Note Note: CLIENT SEEN FOR SUPERFICIAL ABRASION TO INNER WRIST ABRASION. LEFT WRIST NOTED WITH PIN POINT ABRASION. P- CLEANSE WITH SOAP AND WATER, APPLY BACITRACIN AND COVER WITH BAND AIDE
[2020-02-20] MEDS ORDERED: BACITRACIN 0.9 GM PACKET TP SCH (23:30)
[2020-02-21] MEDS ORDERED: BACITRACIN 15 GM TUBE TOPICAL OINTMENT TP SCH (10:00)
[2020-02-21] MEDS: CLOTRIMAZOLE/BETAMET DIPROP TOPICAL CREAM 45 GM TUBE TP SCH ×2 (10:13→21:38)
[2020-02-21] MEDS: busPIRone HCL 10 MG TABLET (FP) PO SCH ×2 (10:13→21:38)
[2020-02-21] MEDS: PRENATAL VITAMINS W/ FOLIC ACID TABLET (FP) PO SCH (10:13)
[2020-02-21] MEDS: BUPRENORPHINE/NALOXONE 4 MG/1 MG FILM PACKET SL SCH ×2 (10:13→16:39)
[2020-02-21] MEDS: NICOTINE 21 MG/24 HOURS TOPICAL PATCH TD SCH (10:13)
[2020-02-21] MEDS: GABAPENTIN 300 MG CAPSULE PO SCH (10:13)
[2020-02-21] MEDS: QUEtiapine FUMARATE 50 MG TABLET PO SCH ×2 (10:14→21:38)
[2020-02-21] MEDS: NICOTINE POLACRILEX 2 MG GUM BUC PRN (19:29)
[2020-02-21] MEDS: THIAMINE HCL 100 MG TABLET (FP) PO SCH (21:38)
[2020-02-21] MEDS: MELATONIN 5 MG TABLETS PO SCH (21:38)
[2020-02-21] MEDS: MIRTAZAPINE 15 MG TABLET (FP) PO SCH (21:38)
[2020-02-22] MEDS: PRENATAL VITAMINS W/ FOLIC ACID TABLET (FP) PO SCH (10:42)
[2020-02-22] MEDS: BUPRENORPHINE/NALOXONE 4 MG/1 MG FILM PACKET SL SCH ×2 (10:43→15:57)
[2020-02-22] MEDS: busPIRone HCL 10 MG TABLET (FP) PO SCH ×2 (10:43→21:14)
[2020-02-22] MEDS: QUEtiapine FUMARATE 50 MG TABLET PO SCH ×2 (10:44→21:16)
[2020-02-22] MEDS: GABAPENTIN 300 MG CAPSULE PO SCH ×3 (10:54→21:14)
[2020-02-22] MEDS: NICOTINE 21 MG/24 HOURS TOPICAL PATCH TD SCH (10:54)
[2020-02-22] MEDS: CLOTRIMAZOLE/BETAMET DIPROP TOPICAL CREAM 45 GM TUBE TP SCH ×2 (10:54→21:14)
--- NOTE | 2020-02-22 11:21 | PN ---
[facility] Progress Note Note: Others' Prescriptions Patient Name: Dameon SánchezBirth Date: 01/12/1981 Address: [address] [facility] [address] [place], [place] [address]Bee: Male Rx Written Rx Dispensed Drug Quantity Days Supply Prescriber Name Payment Method Dispenser 02/05/2020 02/05/2020 buprenorphine-naloxone 8-2 mg sl tablet 30 30 Amanda Huff [facility] Patient Name: Dameon SánchezBirth Date: 01/12/1981 Address: [address] [place] [id number]: Male Rx Written Rx Dispensed Drug Quantity Days Supply Prescriber Name Payment Method Dispenser 01/19/2020 01/19/2020 buprenorphine-naloxone 8-2 mg sl film 50 25 Nazanin Badillo (CUSTOMER CONTACT REPRESENTATIVE) Insurance [facility]
--- NOTE | 2020-02-22 11:39 | PN ---
[facility] COWS - Scale Resting Pulse: 0= ID 80 or Below Sweatin= Chills/Flushing Restless Observation: 1= Difficult to Sit Still Pupil Size: 0= Normal to Room Light Bone or Joint Aches: 4=Acute Joint/Muscle Pain Runny Nose/ Eye Tearin= None GI Upset > 30mins: 0= None Tremor Observation of Outstretched Hands: 0= None Yawning Observation: 0= None Anxiety or Irritability: 2=Irritable/Anxious Goose Flesh Skin: 0=Smooth Skin COWS Score: 8 BHS Progress Note (SOAP) Subjective: PATIENT SEEN FOR DOSE ADJUSTMENT OF SUBOXONE MAT FOR OPIOD USE DISORDER. HE HAS HX OF TREATMENT OF SUBOXONE 12MG DAILY. STATES CURRENT DOSE OF 8MG HELPS BUT CONTINUES TO HAVING BODY ACHES, CRAVINGS AND IRRITABILITY. HE ALSO HAS HX OF PERIPHERAL NEUROPATHIC PAIN AND TREATED WITH GABAPENTIN 300MG DAILY. Laboratory Tests 02/20/20 02/20/20 07:10 10:52 Urine Color Yellow Urine Appearance Cloudy Urine pH >= 9.0 H D Ur Specific [place] 1.017 Urine Protein Trace Urine Glucose (UA) Negative Urine Ketones Negative Urine Blood Negative Urine Nitrite Negative Urine Bilirubin Negative Urine Urobilinogen 0.2 Ur Leukocyte Esterase Negative HIV Ag/Ab Combo Qual Negative Vital Signs Temperature 97.5 F L 02/21/20 20:35 Pulse Rate 57 L 02/21/20 06:40 Respiratory Rate 20 02/21/20 06:40 Blood Pressure 106/69 02/21/20 06:40 O2 Sat by Pulse Oximetry (%) 98 02/21/20 20:35 Objective: 02/22/20 11:40 PE ALERT AND ORIENTED X 3 SKIN WARM AND DRY +PERRLA EOMS INTACT BL ANXIOUS, IRRITABLE EXT AMB GUARDED WITH CANE NO EDEMA NOTED Assessment: 02/22/20 11:40 A/P; SUBOXONE MAT OPIOD DEPENDENDCE Plan: WILL INCREASE SUBOXONE TO 12MG DAILY STARTING IN AM INCREASE GABAPENTIN TO 300MG TID CONTINUE REHAB SERVICES MONITOR CLINICALLY
[2020-02-22] MEDS: NICOTINE POLACRILEX 2 MG GUM BUC PRN ×2 (12:42→20:19)
[2020-02-22] MEDS ORDERED: PT OWN MED DRAWER 7, Y5N ONE (16:18)
[2020-02-22] MEDS: THIAMINE HCL 100 MG TABLET (FP) PO SCH (21:13)
[2020-02-22] MEDS: MIRTAZAPINE 15 MG TABLET (FP) PO SCH (21:13)
[2020-02-22] MEDS: MELATONIN 5 MG TABLETS PO SCH (21:14)
[2020-02-23] MEDS: GABAPENTIN 300 MG CAPSULE PO SCH ×4 (07:08→21:31)
[2020-02-23 07:36] VITALS: BP 136/81; PULSE 60
[2020-02-23] MEDS: PRENATAL VITAMINS W/ FOLIC ACID TABLET (FP) PO SCH (09:27)
[2020-02-23] MEDS: CLOTRIMAZOLE/BETAMET DIPROP TOPICAL CREAM 45 GM TUBE TP SCH ×2 (09:27→21:32)
[2020-02-23] MEDS: QUEtiapine FUMARATE 50 MG TABLET PO SCH ×2 (09:27→21:31)
[2020-02-23] MEDS: NICOTINE 21 MG/24 HOURS TOPICAL PATCH TD SCH (09:27)
[2020-02-23] MEDS: busPIRone HCL 10 MG TABLET (FP) PO SCH ×2 (09:27→21:31)
[2020-02-23] MEDS: BUPRENORPHINE/NALOXONE 8 MG/2 MG FILM PACKET SL SCH (09:27)
[2020-02-23] MEDS: NICOTINE POLACRILEX 2 MG GUM BUC PRN ×3 (09:30→21:33)
[2020-02-23] MEDS ORDERED: BENZOCAINE 20 % GEL TUBE MM PRN (10:15)
[2020-02-23] MEDS: IBUPROFEN 400 MG TABLET (FP) PO PRN (10:28)
[2020-02-23] MEDS ORDERED: MASKS NR ONE (11:04)
[2020-02-23] MEDS ORDERED: BUPRENORPHINE/NALOXONE 4 MG/1 MG FILM PACKET SL SCH (16:30)
--- NOTE | 2020-02-23 19:08 | PN ---
[facility] Progress Note Note: informed by nursing that pt wants to leave . Upon arriving to the floor and discussing w/ pt , pt declined to provide further information " I don't have to tell you why I am leaving " and demanded rx for all his meds of record. Pt denied having spoken to JAIDEN Beaulieu yesterday . Pt was informed meds would have to be ordered by psychiatry in the a.m. Pt proceeded to curse commercial insurance underwriter using foul language and walked away .
[2020-02-23 20:42] VITALS: TEMP 97.3
[2020-02-23] MEDS: MIRTAZAPINE 15 MG TABLET (FP) PO SCH (21:31)
[2020-02-23] MEDS: MELATONIN 5 MG TABLETS PO SCH (21:31)
[2020-02-23] MEDS: THIAMINE HCL 100 MG TABLET (FP) PO SCH (21:31)
[2020-02-24] MEDS: BUPRENORPHINE/NALOXONE 8 MG/2 MG FILM PACKET SL SCH (09:22)
[2020-02-24] MEDS: QUEtiapine FUMARATE 50 MG TABLET PO SCH (09:22)
[2020-02-24] MEDS: busPIRone HCL 10 MG TABLET (FP) PO SCH (09:22)
[2020-02-24] MEDS: GABAPENTIN 300 MG CAPSULE PO SCH (09:22)
[2020-02-24] MEDS: PRENATAL VITAMINS W/ FOLIC ACID TABLET (FP) PO SCH (09:22)
[2020-02-24] MEDS: NICOTINE 21 MG/24 HOURS TOPICAL PATCH TD SCH (09:23)
[2020-02-24] MEDS: NICOTINE POLACRILEX 2 MG GUM BUC PRN (09:24)
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
[2020-02-24] MEDS: CLOTRIMAZOLE/BETAMET DIPROP TOPICAL CREAM 45 GM TUBE TP SCH (09:59)
--- NOTE | 2020-02-24 10:09 | PN ---
[facility] Progress Note Note: Patient is discharged today. Scripts for 30 days supply of medications(Remeron 15 mg/hs, Buspar 10 mg/bid, Seroquel 50 mg/bid) are electronically transmitted to [facility], [address] [place] [address]
== END 2020-02-24 11:07 | disposition home or self-care (01) | DRG 773 ==
LOC: YASAS 15:06 → Y3W 15:07
PROVIDERS: ADMIT Allergy & Immunology; ATTEND Allergy & Immunology
DX: F11.20 Opioid dependence, uncomplicated (principal); F13.20 Sedative, hypnotic or anxiolytic dependence, uncomplicated; F17.210 Nicotine dependence, cigarettes, uncomplicated; F19.24 Other psychoactive substance dependence with psychoactive substance-induced mood disorder; F31.9 Bipolar disorder, unspecified; F41.9 Anxiety disorder, unspecified; F90.9 Attention-deficit hyperactivity disorder, unspecified type; J45.909 Unspecified asthma, uncomplicated; G47.00 Insomnia, unspecified; G62.9 Polyneuropathy, unspecified; Z86.59 Personal history of other mental and behavioral disorders; S60.812A Abrasion of left wrist, initial encounter; X58.XXXA Exposure to other specified factors, initial encounter; Y93.9 Activity, unspecified; Y92.239 Unspecified place in hospital as the place of occurrence of the external cause; Y99.9 Unspecified external cause status; Z99.89 Dependence on other enabling machines and devices; Z56.0 Unemployment, unspecified; Z59.0 Homelessness
CPT/HCPCS: 36415; 81003; 87086; 87389; Q0162

== ENCOUNTER 2020-03-21 17:25 | Inpatient (IN) | payer OTHER ==
--- NOTE | 2020-03-21 18:58 | BHS.RME ---
Substance Use & Tx History - Substance Use History Heroin Substance amount: 4-5 bags/day Frequency of use: Daily Substance route: Inhalation (ex: sniffing or snorting) Date of Last Use: 03/20/20 - Last Treatment Date of last treatment: 02/2020 Treatment type: Substance Use Disorder (BONG) Where was last treatment: Rehab (States relapsed next day) Physical/Psych/Mental Status - Behavior General Behavior: Decreased activity Eye Contact: Decreased - Cooperativeness Cooperativeness: Cooperative - Thinking Thought Processes: Goal Directed Thought content: Future oriented - Physical Health Problems Is patient presently having any pain?: Yes (states back/limbs - withdrawal pain) Does patient presently have any injuries (include location): No Does patient currently have a fever: No COWS - Scale Resting Pulse: 1= [place] 81-100 Sweatin= Chills/Flushing Restless Observation: 0= Sits Still Pupil Size: 2= Moderately Dilated (Pupils = 5 mm) Bone or Joint Aches: 2= Severe Diffuse Aches Runny Nose/ Eye Tearin= None GI Upset > 30mins: 2= Nausea/Diarrhea Tremor Observation: 4= Gross Tremor/Twitching Yawning Observation: 0= None Anxiety or Irritability: 1=Feels Anxious/Irritable Goose Flesh Skin: 0=Smooth Skin COWS Score: 13
[2020-03-21 22:19] VITALS: BMI 19.8
--- NOTE | 2020-03-21 22:31 | HP ---
COWS - Scale Resting Pulse: 1= [place] 81-100 Sweatin= Chills/Flushing Restless Observation: 1= Difficult to Sit Still Pupil Size: 1= Pupils >than Normal (Pupils = 5 mm) Bone or Joint Aches: 4=Acute Joint/Muscle Pain Runny Nose/ Eye Tearin= Nasal Congestion GI Upset > 30mins: 2= Nausea/Diarrhea (nausea, diarrhea x 3) Tremor Observation: 4= Gross Tremor/Twitching Yawning Observation: 1= 1-2x During Session Anxiety or Irritability: 2=Irritable/Anxious Goose Flesh Skin: 0=Smooth Skin COWS Score: 18 CIWA Score - Admission Criteria OASAS Guidelines: Admission for Medically Managed Detox: Requires at least one of the followin. CIWA greater than 12 2. Seizures within the past 24 hours 3. Delirium tremens within the past 24 hours 4. Hallucinations within the past 24 hours 5. Acute intervention needed for co occurring medical disorder 6. Acute intervention needed for co occurring psychiatric disorder 7. Severe withdrawal that cannot be handled at a lower level of care (continued vomiting, continued diarrhea, abnormal vital signs) requiring intravenous medication and/or fluids 8. Admitting History and Physical - Smoking History Smoking history: Current every day smoker Have you smoked in the past 12 months: Yes Aproximately how many cigarettes per day: 20 - Alcohol/Substance Use Hx Alcohol Use: No Admission ROS [facility] Chief Complaint: Seeking admission to detox Allergies/Adverse Reactions: Allergies Allergy/AdvReac Type Severity Reaction Status Date / Time penicillin G Allergy Unknown UNKNOWN Verified 03/21/20 22:13 History of Present Illness: 24 years old male with 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 His last admission was for the period 02/12/2020-02/24/2020 and he reports that he relapsed as soon as he was discharged. he uses 5 bags of heroin daily. Patient is on suboxone 8mg-2mg sl film with 215 days supply dispensed on 03/11/2020, Patient reports that he dos not want to continue with suboxone and he is actively withdrawing at this time. He has medical history of asthma and psych. history of depression, bipolar disorder, ADHD and anxiety. Patient denies suicide attempt/ suicidal ideation at this time. He is unemployed, homeless and reports that he is on parole. Patient denies blackouts or overdose. Exam Limitations: No Limitations - Ebola screening Have you traveled outside of the country in the last 21 days: No Have you had contact with anyone from an Ebola affected area: No Have you been sick,other than usual withdrawal symptoms: No Do you have a fever: No - Review of Systems Constitutional: Chills, Malaise, Night Sweats, Changes in sleep EENT: reports: No Symptoms Reported Respiratory: reports: No Symptoms reported Cardiac: reports: No Symptoms Reported GI: reports: Diarrhea (x 3), Nausea, Poor Appetite, Poor Fluid Intake, Abdominal cramping : reports: No Symptoms Reported Musculoskeletal: reports: Back Pain, Muscle Pain Integumentary: reports: Dryness, Flushing Neuro: reports: Headache, Tremors Endocrine: reports: No Symptoms Reported Hematology: reports: No Symptoms Reported Psychiatric: reports: No Sypmtoms Reported, Mood/Affect Appropiate, Orientated x3, Anxious, Depressed Other Systems: Reviewed and Negative Patient History - Patient Medical History Hx Anemia: No Hx Asthma: Yes Hx Chronic Obstructive Pulmonary Disease (COPD): No Hx Cancer: No Hx Cardiac Disorders: No Hx Congestive Heart Failure: No Hx Hypertension: No Hx Hypercholesterolemia: No Hx Pacemaker: No HX Cerebrovascular Accident: No Hx Seizures: No Hx Dementia: No Hx Diabetes: No Hx Gastrointestinal Disorders: No Hx Liver Disease: No Hx Genitourinary Disorders: No Hx Sexually Transmitted Disorders: No Hx Renal Disease (ESRD): No Hx Thyroid Disease: No Hx Human Immunodeficiency Virus (HIV): No (Negative 2020) Hx Hepatitis C: No Hx Depression: Yes (+ Anxiety + ADHD) Hx Suicide Attempt: No (Denies suicidal ideation at this time) Hx Bipolar Disorder: Yes Hx Schizophrenia: No - Patient Surgical History Past Surgical History: No Hx Neurologic Surgery: No Hx Cataract Extraction: No Hx Cardiac Surgery: No Hx Lung Surgery: No Hx Abdominal Surgery: No Hx Appendectomy: No Hx Cholecystectomy: No Hx Genitourinary Surgery: No Hx Orthopedic Surgery: No Anesthesia Reaction: No - PPD History Documented Results: Negative w/proof Implanted On Prior R Admission?: Yes Date: 02/14/20 Results: 0 mm PPD to be Administered?: No - Reproductive History Patient is a Female of Child Bearing Age (11 -55 yrs old): No (male) - Smoking Cessation Smoking history: Current every day smoker Have you smoked in the past 12 months: Yes Aproximately how many cigarettes per day: 20 Hx Chewing Tobacco Use: No Initiated information on smoking cessation: Yes 'Breaking Loose' booklet given: 03/21/20 - Substance & Tx. History Hx Alcohol Use: No Hx Substance Use: Yes Substance Use Type: Heroin, Marijuana, Prescribed Hx Substance Use Treatment: Yes ([facility]) - Substances abused Heroin Substance route: Inhalation Frequency: Daily Amount used: 5 bags Age of first use: 15 Date of last use: 03/20/20 Admission Physical Exam [facility] - Vital Signs Vital Signs: Vital Signs - 24 hr 03/21/20 22:15 Temperature 96.5 F L Pulse Rate 17 L Respiratory 17 Rate Blood Pressure 111/64 - Physical General Appearance: Yes: Moderate Distress, Tremorous, Sweating, Anxious HEENTM: Yes: Within Normal Limits Respiratory: Yes: Lungs Clear, Normal Breath Sounds, No Respiratory Distress Neck: Yes: Within Normal Limits Breast: Yes: Breast Exam Deferred Cardiology: Yes: Regular Rhythm, Regular Rate Abdominal: Yes: Normal Bowel Sounds Genitourinary: Yes: Within Normal Limits Back: Yes: Normal Inspection Musculoskeletal: Yes: Back pain, Muscle Pain Extremities: Yes: Tremors Neurological: Yes: Within Normal Limits Integumentary: Yes: Warm Lymphatic: Yes: Within Normal Limits - Diagnostic (1) Depression Current Visit: Yes Status: Chronic (2) Anxiety Current Visit: Yes Status: Chronic (3) ADHD (attention deficit hyperactivity disorder) Current Visit: Yes Status: Chronic (4) Asthma Current Visit: Yes Status: Chronic Qualifiers: Asthma severity: mild Asthma persistence: intermittent Asthma complication type: uncomplicated Qualified Code(s): J45.20 - Mild intermittent asthma, uncomplicated (5) Bipolar II disorder Current Visit: Yes Status: Chronic (6) Nicotine dependence Current Visit: Yes Status: Chronic Qualifiers: Nicotine product type: cigarettes Substance use status: uncomplicated Qualified Code(s): F17.210 - Nicotine dependence, cigarettes, uncomplicated (7) Opioid dependence with withdrawal Current Visit: Yes Status: Acute Cleared for Admission [facility] - Detox or Rehab [facility] Level of Care: Medically Managed Detox Regimen/Protocol: Methadone Claeared for Rehab Admission: No Breathalyzer - Breathalyzer Breathalyzer: 0 Urine Drug Screen - Test Device Lot number: [id number] Expiration date: 11/03/21 - Control Is test valid?: Yes - Results Drug screen NEGATIVE: No Urine drug screen results: THC-Marijuana, FEN-Fentanyl, MOP-Opiates, BAR- Barbiturates, BUP-Suboxone Inpatient Rehab Admission - Rehab Decision to Admit Inpatient rehab admission?: No
[2020-03-21] MEDS ORDERED: BISMUTH SUBSALICYLATE 524 MG/30 ML UD PO PRN (22:44)
[2020-03-21] MEDS ORDERED: MENTHOL/PHENOL 1 EACH UD MM PRN (22:44)
[2020-03-21] MEDS ORDERED: hydrOXYzine PAMOATE 25 MG CAPSULE (FP) PO PRN (22:44)
[2020-03-21] MEDS ORDERED: MAG HYDROX/AL HYDROX/SIMETH 30 ML UNIT-DOSE CUP PO PRN (22:44)
[2020-03-21] MEDS ORDERED: MAGNESIUM CITRATE 300 ML BOTTLE PO PRN (22:44)
[2020-03-21] MEDS ORDERED: MAGNESIUM HYDROX 2400MG/30ML ORAL SUSPENSION 30 ML CUP PO PRN (22:44)
[2020-03-21] MEDS ORDERED: ACETAMINOPHEN 325 MG TABLET (FP) PO PRN ×2 (22:44)
[2020-03-21] MEDS ORDERED: NICOTINE POLACRILEX 2 MG GUM BUC PRN (22:44)
[2020-03-21] MEDS ORDERED: IBUPROFEN 400 MG TABLET (FP) PO PRN (22:44)
[2020-03-21] MEDS ORDERED: ONDANSETRON *ODT* 4 MG TABLET SL ONE (23:00)
[2020-03-21] MEDS ORDERED: METHADONE HCL 10 MG TABLET (FOR DETOX USE ONLY) PO ONE (23:00)
[2020-03-21] MEDS: cloNIDine HCL 0.1 MG TABLET PO PRN (23:53)
[2020-03-22] MEDS ORDERED: METHADONE HCL 5 MG TABLET (FOR DETOX USE ONLY) PO ONE (10:00)
[2020-03-22] MEDS: METHOCARBAMOL 500 MG TABLET PO PRN (10:43)
[2020-03-22] MEDS: cloNIDine HCL 0.1 MG TABLET PO PRN (10:43)
[2020-03-22 10:44] LABS: HEMATOCRIT 36.9 % (35.4-49); HEMOGLOBIN 12.4 GM/dL (11.7-16.9); MCH 29.9 pg (25.7-33.7); MCHC 33.6 g/dl (32.0-35.9); MEAN PLT VOLUME 8.6 fl (7.5-11.1); PLATELET COUNT 231 K/MM3 (134-434); RBC 4.14 M/mm3 (4.00-5.60); RDW 15.2 % (11.9-15.9); WHITE BLOOD COUNT 6.2 K/mm3 (4.0-10.0)
[2020-03-22] MEDS: NICOTINE 21 MG/24 HOURS TOPICAL PATCH TD SCH (10:44)
[2020-03-22] MEDS: PRENATAL VITAMINS W/ FOLIC ACID TABLET (FP) PO SCH (10:44)
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
[2020-03-22 11:02] LABS: POTASSIUM 4.5 mmol/L (3.5-5.1)
[2020-03-22 11:13] LABS: ALBUMIN 3.6 g/dl (3.4-5.0); BILIRUBIN,TOTAL 0.6 mg/dL (0.2-1); BLOOD UREA NITROGEN 7.4 mg/dL (7-18); CALCIUM 8.8 mg/dL (8.5-10.1); CREATININE 0.8 mg/dL (0.55-1.3); TOT PROT 6.4 g/dl (6.4-8.2)
--- NOTE | 2020-03-22 11:37 | PN ---
BHS COWS - Scale Resting Pulse: 0= [place] 80 or Below Sweatin= Beads of Sweat on Face Restless Observation: 1= Difficult to Sit Still Pupil Size: 0= Normal to Room Light Bone or Joint Aches: 2= Severe Diffuse Aches Runny Nose/ Eye Tearin= None GI Upset > 30mins: 0= None Tremor Observation of Outstretched Hands: 0= None Yawning Observation: 2= >3x During Session Anxiety or Irritability: 2=Irritable/Anxious Goose Flesh Skin: 0=Smooth Skin COWS Score: 10 BHS Progress Note (SOAP) Subjective: c/o sweats, anxiety, irritability, and muscle aches. Objective: 03/22/20 11:36 Vital Signs 03/22/20 03/22/20 07:27 08:37 Temperature 98.2 F 98 F Pulse Rate 67 71 Respiratory 18 17 Rate Blood Pressure 103/48 L 132/62 O2 Sat by Pulse 97 100 Oximetry (%) Laboratory Last Values WBC 6.2 K/mm3 (4.0-10.0) 03/22/20 08:30 RBC 4.14 M/mm3 (4.00-5.60) 03/22/20 08:30 Hgb 12.4 GM/dL (11.7-16.9) 03/22/20 08:30 Hct 36.9 % (35.4-49) 03/22/20 08:30 MCV 89.0 fl (80-96) 03/22/20 08:30 MCH 29.9 pg (25.7-33.7) 03/22/20 08:30 MCHC 33.6 g/dl (32.0-35.9) 03/22/20 08:30 RDW 15.2 % (11.9-15.9) 03/22/20 08:30 Plt Count 231 K/MM3 (134-434) D 03/22/20 08:30 MPV 8.6 fl (7.5-11.1) 03/22/20 08:30 Sodium 141 mmol/L (136-145) 03/22/20 08:30 Potassium 4.5 mmol/L (3.5-5.1) 03/22/20 08:30 Chloride 108 mmol/L (98-107) H 03/22/20 08:30 Carbon Dioxide 26 mmol/L (21-32) 03/22/20 08:30 Anion Gap 7 MMOL/L (8-16) L 03/22/20 08:30 BUN 7.4 mg/dL (7-18) 03/22/20 08:30 Creatinine 0.8 mg/dL (0.55-1.3) 03/22/20 08:30 Est GFR (CKD-EPI)AfAm 142.89 03/22/20 08:30 Est GFR (CKD-EPI)NonAf 123.29 03/22/20 08:30 Random Glucose 81 mg/dL (74-106) 03/22/20 08:30 Calcium 8.8 mg/dL (8.5-10.1) 03/22/20 08:30 Total Bilirubin 0.6 mg/dL (0.2-1) 03/22/20 08:30 AST 18 U/L (15-37) 03/22/20 08:30 ALT 32 U/L (13-61) 03/22/20 08:30 Alkaline Phosphatase 67 U/L (45-117) 03/22/20 08:30 Total Protein 6.4 g/dl (6.4-8.2) 03/22/20 08:30 Albumin 3.6 g/dl (3.4-5.0) 03/22/20 08:30 Syphilis Serology Non-reactive (NONREACTIVE) 03/22/20 08:30 Labs noted. Assessment: 03/22/20 11:37 AOX3, in no acute respiratory distress. Full ROM, ambulating in the unit. Withdrawal symptoms. Plan: continue detox.
[2020-03-22] MEDS: QUEtiapine FUMARATE 50 MG TABLET PO SCH ×2 (15:17→23:09)
[2020-03-22] MEDS ORDERED: MIRTAZAPINE 15 MG TABLET (FP) PO SCH (22:00)
[2020-03-22] MEDS: MIRTAZAPINE 15 MG TABLET (FP) PO SCH (23:09)
[2020-03-22] MEDS: THIAMINE HCL 100 MG TABLET (FP) PO SCH (23:09)
[2020-03-22] MEDS: MELATONIN 5 MG TABLETS PO SCH (23:10)
[2020-03-23] MEDS: NICOTINE 21 MG/24 HOURS TOPICAL PATCH TD SCH (09:57)
[2020-03-23] MEDS: PRENATAL VITAMINS W/ FOLIC ACID TABLET (FP) PO SCH (09:57)
[2020-03-23] MEDS: QUEtiapine FUMARATE 50 MG TABLET PO SCH ×2 (09:57→20:59)
[2020-03-23] MEDS ORDERED: METHADONE HCL 10 MG TABLET (FOR DETOX USE ONLY) PO ONE (10:00)
[2020-03-23] MEDS: METHOCARBAMOL 500 MG TABLET PO PRN ×2 (10:01→23:26)
--- NOTE | 2020-03-23 10:09 | PN ---
S Progress Note Note: Patient complains of feeling anxious but cannot take Vistaril. He told comic book writer that he was on Gabapentin 300 mg/tid for neuropathy but medical provider for some reason will not prescribe it to him. Will order Gabapentin 300 mg/tid for anxiety
--- NOTE | 2020-03-23 11:27 | PN ---
BHS COWS - Scale Resting Pulse: 0= [place] 80 or Below Sweatin= No chills or Flushing Restless Observation: 0= Sits Still Pupil Size: 0= Normal to Room Light Bone or Joint Aches: 4=Acute Joint/Muscle Pain Runny Nose/ Eye Tearin= None GI Upset > 30mins: 0= None Tremor Observation of Outstretched Hands: 0= None Yawning Observation: 0= None Anxiety or Irritability: 2=Irritable/Anxious Goose Flesh Skin: 0=Smooth Skin COWS Score: 6 BHS Progress Note (SOAP) Subjective: c/o anxiety, irritability, and muscle aches. Objective: 03/23/20 11:26 Vital Signs 03/23/20 03/23/20 05:36 09:08 Temperature 97.9 F 98.4 F Pulse Rate 49 L 58 L Respiratory 18 17 Rate Blood Pressure 105/62 129/75 O2 Sat by Pulse 98 Oximetry (%) Laboratory Last Values WBC 6.2 K/mm3 (4.0-10.0) 03/22/20 08:30 RBC 4.14 M/mm3 (4.00-5.60) 03/22/20 08:30 Hgb 12.4 GM/dL (11.7-16.9) 03/22/20 08:30 Hct 36.9 % (35.4-49) 03/22/20 08:30 MCV 89.0 fl (80-96) 03/22/20 08:30 MCH 29.9 pg (25.7-33.7) 03/22/20 08:30 MCHC 33.6 g/dl (32.0-35.9) 03/22/20 08:30 RDW 15.2 % (11.9-15.9) 03/22/20 08:30 Plt Count 231 K/MM3 (134-434) D 03/22/20 08:30 MPV 8.6 fl (7.5-11.1) 03/22/20 08:30 Sodium 141 mmol/L (136-145) 03/22/20 08:30 Potassium 4.5 mmol/L (3.5-5.1) 03/22/20 08:30 Chloride 108 mmol/L (98-107) H 03/22/20 08:30 Carbon Dioxide 26 mmol/L (21-32) 03/22/20 08:30 Anion Gap 7 MMOL/L (8-16) L 03/22/20 08:30 BUN 7.4 mg/dL (7-18) 03/22/20 08:30 Creatinine 0.8 mg/dL (0.55-1.3) 03/22/20 08:30 Est GFR (CKD-EPI)AfAm 142.89 03/22/20 08:30 Est GFR (CKD-EPI)NonAf 123.29 03/22/20 08:30 Random Glucose 81 mg/dL (74-106) 03/22/20 08:30 Calcium 8.8 mg/dL (8.5-10.1) 03/22/20 08:30 Total Bilirubin 0.6 mg/dL (0.2-1) 03/22/20 08:30 AST 18 U/L (15-37) 03/22/20 08:30 ALT 32 U/L (13-61) 03/22/20 08:30 Alkaline Phosphatase 67 U/L (45-117) 03/22/20 08:30 Total Protein 6.4 g/dl (6.4-8.2) 03/22/20 08:30 Albumin 3.6 g/dl (3.4-5.0) 03/22/20 08:30 Syphilis Serology Non-reactive (NONREACTIVE) 03/22/20 08:30 Labs noted. Assessment: 03/23/20 11:26 AOX3, in no acute respiratory distress. Full ROM, ambulating in the unit. Withdrawal symptoms. For d/c tomorrow. Plan: continue detox. D/C in AM.
[2020-03-23] MEDS ORDERED: HYDROCORTISONE 1% TOPICAL CREAM 30 GM TUBE TP PRN (14:11)
[2020-03-23] MEDS: GABAPENTIN 300 MG CAPSULE PO SCH ×2 (15:22→20:59)
[2020-03-23] MEDS: MIRTAZAPINE 15 MG TABLET (FP) PO SCH (20:59)
[2020-03-23] MEDS: THIAMINE HCL 100 MG TABLET (FP) PO SCH (20:59)
[2020-03-23] MEDS: MELATONIN 5 MG TABLETS PO SCH (22:15)
[2020-03-24] MEDS ORDERED: METHADONE HCL 5 MG TABLET (FOR DETOX USE ONLY) PO ONE ×2 (06:00→11:30)
[2020-03-24] MEDS: GABAPENTIN 300 MG CAPSULE PO SCH (07:49)
--- NOTE | 2020-03-24 10:37 | DS ---
[facility] Det[facility] Discharge Summary Admission Date: 03/21/20 Discharge Date: 03/24/20 - History Present History: Cannabis Dependence, Opioid Dependence Additional Comments: Pt is medically cleared and discharged to [facility]. Pt completed the detox protocol. Pt is encouraged to follow through with the Rehab protocol which he verbalized understanding. Pt is AOX3, in no acute respiratory distress, Full ROM, and ambulatory. Pertinent Past History: h/o heroin and cannabis use disorder. - Physical Exam Results Vital Signs: Vital Signs Temperature 97.9 F 03/24/20 05:42 Pulse Rate 53 L 03/24/20 05:42 Respiratory Rate 18 03/24/20 05:42 Blood Pressure 110/52 L 03/24/20 05:42 O2 Sat by Pulse Oximetry (%) 96 03/24/20 05:42 Vital Signs 03/24/20 05:42 Temperature 97.9 F Pulse Rate 53 L Respiratory 18 Rate Blood Pressure 110/52 L O2 Sat by Pulse 96 Oximetry (%) Laboratory Last Values WBC 6.2 K/mm3 (4.0-10.0) 03/22/20 08:30 RBC 4.14 M/mm3 (4.00-5.60) 03/22/20 08:30 Hgb 12.4 GM/dL (11.7-16.9) 03/22/20 08:30 Hct 36.9 % (35.4-49) 03/22/20 08:30 MCV 89.0 fl (80-96) 03/22/20 08:30 MCH 29.9 pg (25.7-33.7) 03/22/20 08:30 MCHC 33.6 g/dl (32.0-35.9) 03/22/20 08:30 RDW 15.2 % (11.9-15.9) 03/22/20 08:30 Plt Count 231 K/MM3 (134-434) D 03/22/20 08:30 MPV 8.6 fl (7.5-11.1) 03/22/20 08:30 Sodium 141 mmol/L (136-145) 03/22/20 08:30 Potassium 4.5 mmol/L (3.5-5.1) 03/22/20 08:30 Chloride 108 mmol/L (98-107) H 03/22/20 08:30 Carbon Dioxide 26 mmol/L (21-32) 03/22/20 08:30 Anion Gap 7 MMOL/L (8-16) L 03/22/20 08:30 BUN 7.4 mg/dL (7-18) 03/22/20 08:30 Creatinine 0.8 mg/dL (0.55-1.3) 03/22/20 08:30 Est GFR (CKD-EPI)AfAm 142.89 03/22/20 08:30 Est GFR (CKD-EPI)NonAf 123.29 03/22/20 08:30 Random Glucose 81 mg/dL (74-106) 03/22/20 08:30 Calcium 8.8 mg/dL (8.5-10.1) 03/22/20 08:30 Total Bilirubin 0.6 mg/dL (0.2-1) 03/22/20 08:30 AST 18 U/L (15-37) 03/22/20 08:30 ALT 32 U/L (13-61) 03/22/20 08:30 Alkaline Phosphatase 67 U/L (45-117) 03/22/20 08:30 Total Protein 6.4 g/dl (6.4-8.2) 03/22/20 08:30 Albumin 3.6 g/dl (3.4-5.0) 03/22/20 08:30 Syphilis Serology Non-reactive (NONREACTIVE) 03/22/20 08:30 COVID-19 (DANIEL) Not detected (Not Detected) 03/21/20 23:30 Labs noted. Pertinent Admission Physical Exam Findings: withdrawal symptoms. - Treatment Hospital Course: Detox Protocol Followed, Detoxed Safely, Responded well, Discha rged Condition Good - Medication Discharge Medications: Ambulatory Orders Buspirone HCl [Buspar -] 10 mg PO BID #60 tablet 02/24/20 Gabapentin 300 mg PO DAILY #30 cap 02/24/20 Mirtazapine [Remeron -] 15 mg PO HS #30 tablet 02/24/20 - Diagnosis (1) Opioid dependence with withdrawal Status: Acute (2) Asthma Status: Chronic Qualifiers: Asthma severity: mild Asthma persistence: intermittent Asthma complication type: uncomplicated Qualified Code(s): J45.20 - Mild intermittent asthma, uncomplicated (3) Nicotine dependence Status: Chronic Qualifiers: Nicotine product type: cigarettes Substance use status: uncomplicated Qualified Code(s): F17.210 - Nicotine dependence, cigarettes, uncomplicated (4) Opioid dependence Status: Chronic - AMA Did Patient Leave Against Medical Advice: No
[2020-03-24 10:56] VITALS: BP 90/40; PULSE 68; TEMP 98.2
[2020-03-24] MEDS: NICOTINE 21 MG/24 HOURS TOPICAL PATCH TD SCH (11:32)
[2020-03-24] MEDS: PRENATAL VITAMINS W/ FOLIC ACID TABLET (FP) PO SCH (11:32)
[2020-03-24] MEDS: QUEtiapine FUMARATE 50 MG TABLET PO SCH (11:32)
== END 2020-03-24 11:56 | disposition other institution (70) | DRG 773 ==
LOC: YASAS 17:25 → Y6N 22:32
PROVIDERS: ADMIT Allergy & Immunology; ATTEND Allergy & Immunology
PROC: HZ2ZZZZ Detoxification Services for Substance Abuse Treatment (ICD-10-PCS; principal; 2020-03-21)
DX: F11.23 Opioid dependence with withdrawal (principal); F12.20 Cannabis dependence, uncomplicated; F17.210 Nicotine dependence, cigarettes, uncomplicated; F19.282 Other psychoactive substance dependence with psychoactive substance-induced sleep disorder; F19.24 Other psychoactive substance dependence with psychoactive substance-induced mood disorder; F31.81 Bipolar II disorder; F41.9 Anxiety disorder, unspecified; F90.9 Attention-deficit hyperactivity disorder, unspecified type; G62.9 Polyneuropathy, unspecified; J45.20 Mild intermittent asthma, uncomplicated; Z88.0 Allergy status to penicillin; Z56.0 Unemployment, unspecified; Z59.0 Homelessness
CPT/HCPCS: 36415; 80053; 85027; 86780; J0735; U0003

== ENCOUNTER 2020-03-24 12:12 | Inpatient (IN) | payer OTHER ==
[2020-03-24] MEDS ORDERED: LOPERAMIDE HCL 2 MG CAPSULE PO PRN (13:08)
[2020-03-24] MEDS ORDERED: P-EPHED 60MG/TRIPROLIDI 2.5MG TABLET PO PRN (13:08)
[2020-03-24] MEDS ORDERED: MENTHOL/PHENOL 1 EACH UD MM PRN (13:08)
[2020-03-24] MEDS ORDERED: guaiFENesin 200 MG/10 ML 10 ML UNIT-DOSE CUPS PO PRN (13:08)
[2020-03-24] MEDS ORDERED: MAGNESIUM HYDROX 2400MG/30ML ORAL SUSPENSION 30 ML CUP PO PRN (13:08)
[2020-03-24] MEDS ORDERED: IBUPROFEN 400 MG TABLET (FP) PO PRN (13:08)
[2020-03-24] MEDS ORDERED: MAGNESIUM CITRATE 300 ML BOTTLE PO PRN (13:08)
[2020-03-24] MEDS ORDERED: MAG HYDROX/AL HYDROX/SIMETH 30 ML UNIT-DOSE CUP PO PRN (13:08)
--- NOTE | 2020-03-24 13:08 | HP ---
[facility] Rehab Assess/Revision - Admission History Admitted to Rehab from: [facility] Date of Admission to Rehab: 03/24/20 - Vital signs Vital Signs: Vital Signs Period Temp Pulse Resp BP Sys/Sepulveda Pulse Ox Last 24 Hr 97.1 F 68 18 114/69 97 - Findings Detox History & Physical reviewed: Yes Concur with findings: Yes Comments/Additional Findings: Pt completed detox on and referred to rehab today. C/o w/s-loss of appetite, h/a,muscle aches,hot/cold chills. PMHx:Asthma. Psych:Bipolar Disorder. Alert o x 3. nad. oob ambulating with steady gait. Extremities:no edema,skin intact. Cont Rehab Inpatient Rehab Admission - Rehab Decision to Admit Inpatient rehab admission?: Yes - Initial Determination Are CD services needed?: Yes Free of communicable disease: Yes Not in need of hospitalization: Yes - Rehab Admission Criteria Previous failed treatment: Yes Poor recovery environment: Yes Comorbidities: Yes Lacks judgement: Yes Patient is meeting Inpatient Rehab admission criteria:: Yes
--- NOTE | 2020-03-24 13:20 | CONSULT ---
[facility] Psychiatric Consult - Data Date of interview: 03/24/20 Admission source: 6N Identifying data: Mr Ayala is a 24 years old single Black male, unemployed receiving public assistance, homeless admitted from detox on 03/24/20 for inpatient rehabilitation treatment for opioid Substance Abuse History: Reports history of heroin use. Refer to addiction counselor's summary for further information Medical History: Significant for bronchial asthma and neuropathy. Smokes cigarettes 1 ppd Psychiatric History: Patient is known for three previous admissions to this facility. He reports that his first psychiaric contact occured at age 7 when he was diagnosed with ADHD, MDD, Anxiety. Reports that he was treated with psychotherapy and was not prescribed medications till 5 years ago when he was incarcerated on charges on armed robbery. [facility] in [facility] he was prescribed Buspar, Remeron etc. Reports that he has not received outpatient psychiatric treatment since his release from [facility] in August 2019. Reports that his most recent psychiatric treatment was provided during admission to detox/rehab in this facility from 02/12/20 to 02/24/20. He was prescribed Remeron 15 mg/hs, Buspar 10 mg/bid and Seroquel 50 mg/bid. He was recently seen by underwriter on 12/21/19 while in detox and Remeron 15 mg/hs and Seroquel 50 mg/bid were resumed. Buspar was not resumed since he claimed it was not helpful.Denies previous psychiatric hospitalizations or suicidal attempt. At present, he is still very irritable and reports feeling depressed and sleeping poorly. Requests to be ordered Buspar in addition to continue Seroquel and Remeron Physical/Sexual Abuse/Trauma History: Denies history of abuse as a child or DV relationship as an adult Psychiatric Findings - Problem List ([place] 1, 2,3) (1) ADHD (attention deficit hyperactivity disorder) Current Visit: No Status: Chronic (2) Mood disorder Current Visit: No Status: Resolved (3) Bipolar II disorder Current Visit: No Status: Ruled-out (4) Substance induced mood disorder Current Visit: No Status: Acute (5) Substance-induced sleep disorder Current Visit: No Status: Acute (6) Opioid dependence Current Visit: Yes Status: Acute (7) Nicotine dependence Current Visit: Yes Status: Chronic (8) Asthma Current Visit: No Status: Chronic Qualifiers: Asthma severity: mild Asthma persistence: intermittent Asthma complication type: uncomplicated Qualified Code(s): J45.20 - Mild intermittent asthma, uncomplicated (9) Neuropathy Current Visit: No Status: Chronic - Initial Treatment Plan Initial Treatment Plan: 1) Continue Remeron 15 mg po HS and Seroquel 50 mg po BID. 2) Start Buspar 10 mg po BID. 3) Continue inpatient rehabilitation
[2020-03-24] MEDS: busPIRone HCL 10 MG TABLET (FP) PO SCH (21:38)
[2020-03-24] MEDS: MELATONIN 5 MG TABLETS PO SCH (21:38)
[2020-03-24] MEDS: THIAMINE HCL 100 MG TABLET (FP) PO SCH (21:38)
[2020-03-24] MEDS: QUEtiapine FUMARATE 50 MG TABLET PO SCH (21:38)
[2020-03-24] MEDS: MIRTAZAPINE 15 MG TABLET (FP) PO SCH (21:38)
[2020-03-24] MEDS: NICOTINE POLACRILEX 2 MG GUM BUC PRN (21:40)
--- NOTE | 2020-03-25 10:40 | PN ---
BHS COWS - Scale Resting Pulse: 0= [place] 80 or Below Sweatin= Chills/Flushing Restless Observation: 1= Difficult to Sit Still Pupil Size: 0= Normal to Room Light Bone or Joint Aches: 2= Severe Diffuse Aches Runny Nose/ Eye Tearin= None GI Upset > 30mins: 0= None Tremor Observation of Outstretched Hands: 1= Tremor [place], Not Seen Yawning Observation: 1= 1-2x During Session Anxiety or Irritability: 2=Irritable/Anxious Goose Flesh Skin: 0=Smooth Skin COWS Score: 8 BHS Progress Note (SOAP) Subjective: Pt requesting to restart suboxone MAT. C/o cravings, anxiety, irritability, hot/cold chills. Met with his counselor Ms Mariel Barber today to plan on aftercare after rehab treatment. Below is an encounter note by admitting provider on admission to detox: History of Present Illness: "24 years old male with 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 His last admission was for the period 02/12/2020-02/24/2020 and he reports that he relapsed as soon as he was discharged. he uses 5 bags of heroin daily. Patient is on suboxone 8mg-2mg sl film with 215 days supply dispensed on 03/11/2020, Patient reports that he dos not want to continue with suboxone and he is actively withdrawing at this time. He has medical history of asthma and psych. history of depression, bipolar disorder, ADHD and anxiety. Patient denies suicide attempt/ suicidal ideation at this time. He is unemployed, homeless and reports that he is on parole. Patient denies blackouts or overdose." Below is the Soboxone I-STOP document from [facility] online: This report was requested by: Steph Marrero | Reference #: [id number] You have not added a SU[employer] number. Keeping your SU[employer] number(s) up to date on the My [employer] Numbers page will enable the separation of your prescriptions from others in the search results. Others' Prescriptions Patient Name: Dell AyaalBirth Date: 1995 Address: [address] [place] [id number]: Male Rx Written Rx Dispensed Drug Quantity Days Supply Prescriber Name Payment Method Dispenser 01/26/2020 01/26/2020 buprenorphine-naloxone 8-2 mg sl tablet 14 14 Kelle Mandel Medicaid [employer] 01/26/2020 01/26/2020 buprenorphine-naloxone 2-0.5 mg sl tablet 28 14 Jazmyn Mandelndra Medicaid [employer] Patient Name: Dell AyalaBirth Date: 1995 Address: [address] [place], [place] [address]Hnt: Male Rx Written Rx Dispensed Drug Quantity Days Supply Prescriber Name Payment Method Dispenser 01/06/2020 01/06/2020 suboxone 8 mg-2 mg sl film 30 30 Pean, Guy J Medicaid [facility] 01/06/2020 01/06/2020 suboxone 4 mg-1 mg sl film 30 30 Pean, Guy J Medicaid [facility] 12/24/2019 12/25/2019 suboxone 8 mg-2 mg sl film 15 15 MilagroYvette ulrich [facility] Medicaid [facility] 12/16/2019 12/18/2019 suboxone 4 mg-1 mg sl film 15 15 Pean, Guy J Medicaid [facility] Patient Name: Dell AyalaBirth Date: 1995 Address: [address] [id number]: Male Rx Written Rx Dispensed Drug Quantity Days Supply Prescriber Name Payment Method Dispenser 03/07/2020 03/07/2020 suboxone 8 mg-2 mg sl film 15 15 Puneet Gongora) Medicaid [facility] Patient Name: Dell AyalaBirth Date: 1995 Address: [place], [place] [address]Rjl: Male Rx Written Rx Dispensed Drug Quantity Days Supply Prescriber Name Payment Method Dispenser 12/15/2019 12/15/2019 suboxone 8 mg-2 mg sl film 14 14 Alva Mendez DO Medicaid [facility] * - Drugs marked with an asterisk are compound drugs. If the compound drug is made up of more than one controlled substance, then each controlled substance will be a separate row in the table. Objective: 03/25/20 11:52 Vital Signs - 24 hr 03/24/20 03/24/20 03/24/20 12:39 14:59 20:29 Temperature 97.1 F L Pulse Rate 68 Respiratory 18 Rate Blood Pressure 114/69 O2 Sat by Pulse 97 98 97 Oximetry (%) 03/25/20 06:36 Temperature 97.5 F L Pulse Rate 58 L Respiratory 18 Rate Blood Pressure 110/81 O2 Sat by Pulse 96 Oximetry (%) Alert o x 3, irritable nad, no resp difficulty oob ambulating with steady gait Active FROM, all limbs Assessment: 03/25/20 11:53 s/p detox suboxone previously on suboxone MAT Requests Restarting Suboxone Plan: UDS today D/w pt will give Suboxone 2 mg sl x 1 now, the 2 mg/0.5 mg after 2 hours. Will keep on Suboxone 4 mg/1mg sl daily x 2 days over the weekend and then increase to original dose of 8mg/2mg sl daily thereafter.
[2020-03-25] MEDS: QUEtiapine FUMARATE 50 MG TABLET PO SCH ×2 (11:34→21:24)
[2020-03-25] MEDS: busPIRone HCL 10 MG TABLET (FP) PO SCH ×2 (11:34→21:24)
[2020-03-25] MEDS: NICOTINE 7 MG/24 HOURS TOPICAL PATCH TD SCH (11:34)
[2020-03-25] MEDS: PRENATAL VITAMINS W/ FOLIC ACID TABLET (FP) PO SCH (11:35)
[2020-03-25] MEDS: NICOTINE POLACRILEX 2 MG GUM BUC PRN ×2 (11:36→21:27)
[2020-03-25] MEDS: cloNIDine HCL 0.1 MG TABLET PO PRN (11:38)
[2020-03-25] MEDS ORDERED: BUPRENORPHINE/NALOXONE 2 MG/0.5 MG FILM PACKET SL ONE ×2 (12:49→15:00)
[2020-03-25] MEDS ORDERED: ALBUTEROL SO4 HFA INHALER IH PRN (15:51)
--- NOTE | 2020-03-25 15:51 | PN ---
[facility] Progress Note Note: Pt wants reports hx of neuropathy of both ankles and toes related to "injury due to long term boots and sports". Pt reports not under pain management. Reports he has own bottle of Neurontin in property and wants to restart. Pt reports no primary care provider at this time stating gets refills from facilities he goes to for treatment. Pt was Rx Gabapentin 300 mg po TID by the psych while in detox before coming to rehab. Pt is currently restarted on Suboxone 4mg/1mg sl daily and will increase to previous daily dose of 8mg/2mg sl daily as seen in STRESS TEST TECHNICIAN. Vital Signs - 24 hr 03/24/20 03/25/20 03/25/20 20:29 06:36 11:35 Temperature 97.5 F L Pulse Rate 58 L 80 Respiratory 18 18 Rate Blood Pressure 110/81 138/83 O2 Sat by Pulse 97 96 Oximetry (%)
[2020-03-25] MEDS: MIRTAZAPINE 15 MG TABLET (FP) PO SCH (21:24)
[2020-03-25] MEDS: MELATONIN 5 MG TABLETS PO SCH (21:24)
[2020-03-25] MEDS: THIAMINE HCL 100 MG TABLET (FP) PO SCH (21:24)
[2020-03-25] MEDS: METHOCARBAMOL 500 MG TABLET PO PRN (21:25)
[2020-03-25] MEDS: hydrOXYzine PAMOATE 25 MG CAPSULE (FP) PO PRN (21:25)
[2020-03-25] MEDS: TOLNAFTATE 1% CREAM 15 GM TUBE TP SCH (22:53)
[2020-03-26] MEDS: busPIRone HCL 10 MG TABLET (FP) PO SCH ×2 (09:54→21:34)
[2020-03-26] MEDS: QUEtiapine FUMARATE 50 MG TABLET PO SCH ×2 (09:54→21:34)
[2020-03-26] MEDS: BUPRENORPHINE/NALOXONE 4 MG/1 MG FILM PACKET SL SCH (09:55)
[2020-03-26] MEDS: NICOTINE POLACRILEX 2 MG GUM BUC PRN ×3 (09:55→21:36)
[2020-03-26] MEDS: TOLNAFTATE 1% CREAM 15 GM TUBE TP SCH ×2 (09:55→21:36)
[2020-03-26] MEDS: PRENATAL VITAMINS W/ FOLIC ACID TABLET (FP) PO SCH (09:55)
[2020-03-26] MEDS: NICOTINE 7 MG/24 HOURS TOPICAL PATCH TD SCH (09:55)
[2020-03-26] MEDS: THIAMINE HCL 100 MG TABLET (FP) PO SCH (21:34)
[2020-03-26] MEDS: MIRTAZAPINE 15 MG TABLET (FP) PO SCH (21:34)
[2020-03-26] MEDS: MELATONIN 5 MG TABLETS PO SCH (21:35)
[2020-03-27] MEDS: QUEtiapine FUMARATE 50 MG TABLET PO SCH ×2 (09:54→21:36)
[2020-03-27] MEDS: busPIRone HCL 10 MG TABLET (FP) PO SCH ×2 (09:54→21:36)
[2020-03-27] MEDS: PRENATAL VITAMINS W/ FOLIC ACID TABLET (FP) PO SCH (09:54)
[2020-03-27] MEDS: BUPRENORPHINE/NALOXONE 4 MG/1 MG FILM PACKET SL SCH (09:54)
[2020-03-27] MEDS: NICOTINE 7 MG/24 HOURS TOPICAL PATCH TD SCH (09:55)
[2020-03-27] MEDS: TOLNAFTATE 1% CREAM 15 GM TUBE TP SCH ×2 (10:13→21:36)
[2020-03-27] MEDS: NICOTINE POLACRILEX 2 MG GUM BUC PRN ×3 (11:32→21:37)
[2020-03-27] MEDS: THIAMINE HCL 100 MG TABLET (FP) PO SCH (21:36)
[2020-03-27] MEDS: MIRTAZAPINE 15 MG TABLET (FP) PO SCH (21:36)
[2020-03-27] MEDS: MELATONIN 5 MG TABLETS PO SCH (21:37)
[2020-03-27] MEDS: cloNIDine HCL 0.1 MG TABLET PO PRN (21:38)
[2020-03-27] MEDS: ACETAMINOPHEN 325 MG TABLET (FP) PO PRN (23:02)
[2020-03-28] MEDS: PRENATAL VITAMINS W/ FOLIC ACID TABLET (FP) PO SCH (10:16)
[2020-03-28] MEDS: NICOTINE 7 MG/24 HOURS TOPICAL PATCH TD SCH (10:16)
[2020-03-28] MEDS: QUEtiapine FUMARATE 50 MG TABLET PO SCH (10:16)
[2020-03-28] MEDS: busPIRone HCL 10 MG TABLET (FP) PO SCH ×2 (10:16→21:05)
[2020-03-28] MEDS: TOLNAFTATE 1% CREAM 15 GM TUBE TP SCH ×2 (10:17→21:06)
[2020-03-28] MEDS: BUPRENORPHINE/NALOXONE 8 MG/2 MG FILM PACKET SL SCH (10:18)
[2020-03-28] MEDS: BUPRENORPHINE/NALOXONE 4 MG/1 MG FILM PACKET SL SCH (10:19)
[2020-03-28] MEDS: NICOTINE POLACRILEX 2 MG GUM BUC PRN ×2 (11:40→19:44)
--- NOTE | 2020-03-28 12:26 | PN ---
[facility] Progress Note Note: Patient requests to have Zyprexa 15 mg/hs ordered as he was taking it at [facility] where he completed rehab treatment on 03/12/20he said that he brought medications with him. After checking patient property, a bottle of Zyprexa 15 mg. Medication was filled on 03/09/20 from [facility]. Patient was recently seen by flex o writer operator twice on 03/22/20while in detox and 03/24/20 while on this unit, on both occasions, he reported that his most recent psychiatric treatment was during admissions in detox/rehab in this facility and he was prescribed Remeron 15 mg/hs, Seroquel 50 mg/bid, Buspar 10 mg/bid. For that reason, these medications were resumed. In the light of this new information, Zyprexa 15 mg/hs will be substituted for Seroquel 50 mg/bid
--- NOTE | 2020-03-28 14:13 | PN ---
[facility] Progress Note Note: Pt requests to increase to previous dose of Suboxone to 8 mg/2 mg sl daily. Pt also reports earwax/itchiness to ears. Reports hx earwax and wants ear drops. Denies pain or fullness to ears. Vital Signs - 24 hr 03/27/20 03/27/20 03/28/20 20:12 21:41 06:34 Temperature 97.7 F Pulse Rate 81 73 Respiratory 18 18 Rate Blood Pressure 134/80 119/65 O2 Sat by Pulse 96 Oximetry (%) Alert o x 3 nad oob ambulating with steady gait A:Hx Cerumen Debrox ear drops as directed per pt hx.
--- NOTE | 2020-03-28 15:51 | PN ---
[facility] Note Note: Pt showed his bottle of Gabapentin to nurse and this provider. Gabapentin 300 mg po tid #90 . Pt will continue with his bottle of medication after discharge and follow up with his prescriber. Vital Signs - 24 hr 03/27/20 03/27/20 03/28/20 20:12 21:41 06:34 Temperature 97.7 F Pulse Rate 81 73 Respiratory 18 18 Rate Blood Pressure 134/80 119/65 O2 Sat by Pulse 96 Oximetry (%) 03/28/20 12:34 Temperature Pulse Rate Respiratory Rate Blood Pressure O2 Sat by Pulse 98 Oximetry (%) Laboratory Tests 03/25/20 08:10 HIV Ag/Ab Combo Qual Negative cont Gabapentin as directed
[2020-03-28 20:53] VITALS: BP 130/76; PULSE 78; TEMP 97.8
[2020-03-28] MEDS: MIRTAZAPINE 15 MG TABLET (FP) PO SCH (21:04)
[2020-03-28] MEDS: GABAPENTIN 300 MG CAPSULE PO SCH (21:05)
[2020-03-28] MEDS: METHOCARBAMOL 500 MG TABLET PO PRN (21:05)
[2020-03-28] MEDS: cloNIDine HCL 0.1 MG TABLET PO PRN (21:05)
[2020-03-28] MEDS: CARBAMIDE PEROXIDE 6.5% OTIC 15 ML BOTTLE AU SCH (21:06)
[2020-03-28] MEDS: THIAMINE HCL 100 MG TABLET (FP) PO SCH (21:06)
[2020-03-28] MEDS: MELATONIN 5 MG TABLETS PO SCH (21:06)
[2020-03-28] MEDS: OLANZapine 7.5 MG TABLET PO SCH (21:07)
[2020-03-29] MEDS: GABAPENTIN 300 MG CAPSULE PO SCH ×3 (07:06→21:01)
[2020-03-29] MEDS: BUPRENORPHINE/NALOXONE 8 MG/2 MG FILM PACKET SL SCH (10:20)
[2020-03-29] MEDS: NICOTINE 7 MG/24 HOURS TOPICAL PATCH TD SCH (10:20)
[2020-03-29] MEDS: PRENATAL VITAMINS W/ FOLIC ACID TABLET (FP) PO SCH (10:20)
[2020-03-29] MEDS: busPIRone HCL 10 MG TABLET (FP) PO SCH ×2 (10:20→21:02)
[2020-03-29] MEDS: CARBAMIDE PEROXIDE 6.5% OTIC 15 ML BOTTLE AU SCH ×2 (10:20→21:01)
[2020-03-29] MEDS: TOLNAFTATE 1% CREAM 15 GM TUBE TP SCH ×2 (10:21→21:00)
[2020-03-29] MEDS: NICOTINE POLACRILEX 2 MG GUM BUC PRN ×3 (10:26→21:04)
[2020-03-29] MEDS: METHOCARBAMOL 500 MG TABLET PO PRN (21:01)
[2020-03-29] MEDS: MIRTAZAPINE 15 MG TABLET (FP) PO SCH (21:01)
[2020-03-29] MEDS: THIAMINE HCL 100 MG TABLET (FP) PO SCH (21:01)
[2020-03-29] MEDS: hydrOXYzine PAMOATE 25 MG CAPSULE (FP) PO PRN (21:01)
[2020-03-29] MEDS: MELATONIN 5 MG TABLETS PO SCH (21:02)
[2020-03-29] MEDS: OLANZapine 7.5 MG TABLET PO SCH (21:02)
[2020-03-29] MEDS: ACETAMINOPHEN 325 MG TABLET (FP) PO PRN (23:41)
[2020-03-30] MEDS: GABAPENTIN 300 MG CAPSULE PO SCH ×2 (07:33→14:22)
[2020-03-30] MEDS: busPIRone HCL 10 MG TABLET (FP) PO SCH (09:49)
[2020-03-30] MEDS: PRENATAL VITAMINS W/ FOLIC ACID TABLET (FP) PO SCH (09:49)
[2020-03-30] MEDS: CARBAMIDE PEROXIDE 6.5% OTIC 15 ML BOTTLE AU SCH (09:49)
[2020-03-30] MEDS: BUPRENORPHINE/NALOXONE 8 MG/2 MG FILM PACKET SL SCH (09:49)
[2020-03-30] MEDS: NICOTINE 7 MG/24 HOURS TOPICAL PATCH TD SCH (09:49)
[2020-03-30] MEDS: TOLNAFTATE 1% CREAM 15 GM TUBE TP SCH (09:49)
[2020-03-30] MEDS: NICOTINE POLACRILEX 2 MG GUM BUC PRN ×2 (10:08→12:53)
[2020-03-30] MEDS ORDERED: HYDROCORTISONE 1% TOPICAL CREAM 30 GM TUBE TP SCH (14:00)
--- NOTE | 2020-03-30 16:42 | PN ---
S Progress Note Note: Requesting early discharge. Laboratory Last Values HIV Ag/Ab Combo Qual Negative (NEGATIVE) 03/25/20 08:10 Vital Signs - 24 hr 03/30/20 12:29 O2 Sat by Pulse 96 Oximetry (%) Alert and oriented w/ steady gait. Lungs CTA. HR: Reg rhythm. Abd soft, NT, BS+. Declined NRT. Declined Narcan kit. Declined referral to a MAT. Patient instructed on increased risks of overdose and prevention. Patient left unit ambulatory and in no apparent distress.
--- NOTE | 2020-03-30 16:42 | DS ---
[facility] Rehab Discharge Summary - [facility] Rehab Discharge Summary Admission Date: 03/24/20 Discharge Date: 03/30/20 - History Present History: Cannabis dependence, Opioid dependence Pertinent Past History: Bipolar Disorder, Nicotine use disorder - Discharge Physical Exam Vital Signs: Vital Signs Temperature 97.8 F 03/28/20 20:02 Pulse Rate 78 03/28/20 20:02 Respiratory Rate 18 03/28/20 20:02 Blood Pressure 130/76 03/28/20 20:02 O2 Sat by Pulse Oximetry (%) 96 03/30/20 12:29 Pertinent Admission Physical Exam Findings: Admitted in early remission post detox from heroin.Tolerated rehab well. Patient leaving unit. Alert and oriented w/ steady gait. Lungs CTA. HR: Reg rhythm. Abd soft, NT, BS+. - Treatment Discharge Condition: Discharge condition good, Responded well Hospital Course: Tolerated rehab post detox. Stable. Patient encouraged to consider MAT, but declined. - Medication Discharge Medications: Ambulatory Orders Buspirone HCl [Buspar -] 10 mg PO BID #60 tablet 02/24/20 Mirtazapine [Remeron -] 15 mg PO HS #30 tablet 02/24/20 Gabapentin 300 mg PO TID 03/24/20 Olanzapine [Zyprexa -] 15 mg PO DAILY 03/24/20 Albuterol Sulfate Inhaler - [Ventolin Hfa Inhaler -] 2 inh PO Q4H 03/25/20 - Medication-Assisted Treatment (MAT) Medication-Assisted Treatment (MAT): No - Discharge Instructions Diet, activity, other medical instructions: Diet: Regular Activity: as tolerated Other medical instructions: Encouraged smoking cessation. Declined NRT. - Diagnosis (1) Opioid use disorder, moderate, in early remission Status: Acute (2) History of asthma Status: Chronic (3) Depression Status: Chronic Qualifiers: Depression Type: unspecified Qualified Code(s): F32.9 - Major depressive disorder, single episode, unspecified (4) Nicotine dependence Status: Chronic Qualifiers: Nicotine product type: cigarettes Substance use status: uncomplicated Qualified Code(s): F17.210 - Nicotine dependence, cigarettes, uncomplicated (5) Bipolar II disorder Status: Chronic - Follow-up Referral Minutes to complete discharge: 20 - AMA Did Patient Leave Against Medical Advice: No
== END 2020-03-30 16:21 | disposition home or self-care (01) | DRG 772 ==
LOC: YASAS 12:12 → Y5N 12:13
PROVIDERS: ADMIT Allergy & Immunology; ATTEND Allergy & Immunology
PROC: HZ42ZZZ Group Counseling for Substance Abuse Treatment, Cognitive-Behavioral (ICD-10-PCS; principal; 2020-03-24)
DX: F11.20 Opioid dependence, uncomplicated (principal); F12.20 Cannabis dependence, uncomplicated; F17.210 Nicotine dependence, cigarettes, uncomplicated; F19.282 Other psychoactive substance dependence with psychoactive substance-induced sleep disorder; F19.24 Other psychoactive substance dependence with psychoactive substance-induced mood disorder; F90.9 Attention-deficit hyperactivity disorder, unspecified type; G62.9 Polyneuropathy, unspecified; J45.20 Mild intermittent asthma, uncomplicated; H61.23 Impacted cerumen, bilateral; Z88.0 Allergy status to penicillin; Z59.0 Homelessness
CPT/HCPCS: 36415; 87389; J0735

== ENCOUNTER 2020-05-12 18:00 | Inpatient (IN) | payer OTHER ==
--- OUTSIDE RECORDS SUMMARY | 2020-05-12 18:09 | XMS ---
:1995 Author Organization [facility] Care Team Providers Name Role Phone ED STAFF PHYSICIANHODAN Unavailable Unavailable KAJAL WEN Unavailable Unavailable ED STAFF PHYSICIAN, STAFF Unavailable Unavailable ZUNASSIGNED Unavailable Unavailable Re-disclosure Warning The records that you are about to access may contain information from federally- assisted alcohol or drug abuse programs. If such information is present, then the following federally mandated warning applies: This information has been disclosed to you from records protected by federal confidentiality rules (42 CFR part 2). The federal rules prohibit you from making any further disclosure of this information unless further disclosure is expressly permitted by the written consent of the person to whom it pertains or as otherwise permitted by 42 CFR part 2. A general authorization for the release of medical or other information is NOT sufficient for this purpose. The Federal rules restrict any use of the information to criminally investigate or prosecute any alcohol or drug abuse patient.The records that you are about to access may contain highly sensitive health information, the redisclosure of which is protected by Article 27-F of the [place] State Public Health law. If you continue you may haveaccess to information: Regarding HIV / AIDS; Provided by facilities licensed or operated by the [facility] Office of Mental Health; or Provided by the [facility] Office for People With Developmental Disabilities. If such information is present, then the following [facility] mandated warning applies: This information has been disclosed to you from confidential records which are protected by state law. State law prohibits you from making any further disclosure of this information without the specific written consent of the person to whom it pertains, or as otherwise permitted by law. Any unauthorized further disclosure in violation of state law may result in a fine or halfway sentence or both. A general authorization for the release of medical or other information is NOT sufficient authorization for further disclosure. Encounters Encounter Providers Location Date Indications Data Source(s ) Emergency Attender: HODAN ED H 05/12/2020 [facility] STAFF 01:12:00 PM [facility] PHYSICIANAttender: EDT - STAFF ED STAFF 05/12/2020 PHYSICIANAdmitter: 05:10:00 PM TOOELE ED STAFF EDT PHYSICIANReferrer: ZUNASSIGNED Patient discharged. Inpatient Attender: KAJAL Sanchez-HAL2 04/24/2020 01:42:00 [facility] ANDREWIAttender: STAFF ED AM EDT - 05/12/[address] [facility] STAFF PHYSICIANAdmitter: 01:42:00 PM EDT MADHURICHRYSTAL PRINGLEAS ANDREWIReferrer: IRANNAI GIBSON IRUANI Patient discharged. Inpatient Attender: KAJAL Sanchez-HAL2 03/31/2020 06:55:00 [facility] ANDREWWilson Healthtender: STAFF ED AM EDT - 04/06/[address] [facility] STAFF PHYSICIANAdmitter: 03:50:00 PM EDT KAJAL GIBSON IRANNAIReferrer: IRANNAI GIBSON IRUANI Patient discharged. Insurance Providers Payer name Policy type Policy ID Covered Covered alliance party's Policy P kimberly / Coverage alliance party ID relationship to [place] [facility] type [place] MED[place] [id number] SP [id number] W [id number] 01 [id number] Problems, Conditions, and Diagnoses Code Display Name Description Problem Type Effective Data Sour ce(s) Dates J45.909 Unspecified UNSPECIFIED Diagnosis 04/06/2020 [facility] asthma, ASTHMA, 03:50:00 PM [facility] uncomplicated UNCOMPLICATED EDT R45.851 Suicidal ideations SUICIDAL IDEATIONS Diagnosis 0 [facility] 03:50:00 PM [facility] Cent[facility] EDT F11.94 Opioid use, OPIOID USE, Diagnosis 04/06/2020 [facility] unspecified with UNSPECIFIED WITH 03:50:00 PM edical Center opioid-induced OPIOID-INDUCED EDT mood disorder MOOD DISORDER F33.1 Major depressive MAJOR DEPRESSIVE Diagnosis 04/06/2020 [facility] [place] disorder, DISORDER, 03:50:00 PM Medical Cent[facility] recurrent, RECURRENT, EDT moderate MODERATE Z56.0 Unemployment, UNEMPLOYMENT, Diagnosis 04/06/2020 [facility] unspecified UNSPECIFIED 03:50:[address] EDT Z59.0 Homelessness HOMELESSNESS Diagnosis 04/06/2020 [facility] 03:50:00 PM Medical Cent[facility] EDT F33.0 Major depressive MAJOR DEPRESSIVE Diagnosis 03/31/2020 [facility] [place] disorder, DISORDER, 06:55:00 AM Medical Cente r recurrent, mild RECURRENT, MILD EDT Results ID Date Data Source Urinalysis.[id number] 04/24/2020 02:36:00 AM EDT [facility] 0 Name Value Range Interpretation Description Data Sup porting Code Source(s) Document(s ) UNK CLEAR <content [facility] styleCode="Darrel [place] d">Urine Medical Clarity Center </content>WILLY R <content styleCode="Tala lics"> (CLEAR )</content> Glucose NEGATIVE <content [facility] [Mass/volume] styleCode="Darrel [place] in Urine by d">Urine Medical Test strip Glucose Center </content>NEGA TIVE MG/DL<content styleCode="Tala lics"> (NEGATIVE MG/DL)</conten t> Color of Urine YELLOW <content [facility] styleCode="Darrel [place] d">Color, Medical Urine Center </content>YELL OW <content styleCode="Tala lics"> (YELLOW )</content> Specific 1.015-1.02 <content [facility] gravity of 5 styleCode="Darrel [place] Urine by Test d">Urine Medical strip Specific Center [place] </content>1.01 5 <content styleCode="Tala lics"> (1.015-1.025 )</content> UNK NEGATIVE <content [facility] styleCode="Darrel [place] d">Urine Medical Bilirubin Center </content>NEGA TIVE <content styleCode="Tala lics"> (NEGATIVE )</content> pH of Urine by 4.5-8.0 Above high <content Saint Test strip normal styleCode="Darrel Martínezs d">Urine pH Medical </content>8.5 Center H<content styleCode="Tala lics"> (4.5-8.0 )</content> Hemoglobin NEGATIVE <content [facility] [Presence] in styleCode="[facility] Urine by Test d">Urine Blood Medical strip </content>NEGA Center TIVE <content styleCode="Tala lics"> (NEGATIVE )</content> Ketones NEGATIVE <content [facility] [Mass/volume] styleCode="Darrel Martínezs in Urine by d">Urine Medical Test strip Ketone Center </content>NEGA TIVE MG/DL<content styleCode="Tala lics"> (NEGATIVE MG/DL)</conten t> Protein NEGATIVE <content [facility] [Mass/volume] styleCode="[facility]rel Mart[facility]nezs in Urine by d">Urine Medical Test strip Protein Center </content>NEGA TIVE MG/DL<content styleCode="Tala lics"> (NEGATIVE MG/DL)</conten t> Leukocyte NEGATIVE <content [facility] esterase styleCode="Darrel Martínezs [Presence] in d">Urine Medical Urine by Test Leukocyte Center strip </content>NEGA TIVE <content styleCode="Tala lics"> (NEGATIVE )</content> Nitrite NEGATIVE <content [facility] [Presence] in styleCode="[facility] Urine by Test d">Urine Medical strip Nitrite Center </content>NEGA TIVE <content styleCode="Tala lics"> (NEGATIVE )</content> Urobilinogen 0.2-1.0 <content [facility] [Units/volume] styleCode="Darrel Martínezs in Urine by d">Urine Medical Test strip Urobilinogen Center </content>0.2 MG/DL<content styleCode="Tala lics"> (0.2-1.0 MG/DL)</conten t> ID Date Data Source HematologyRou.[id number] 04/24/2020 02:36:00 AM EDT [facility] 0400 Name Value Range Interpretation Description Data Sup porting Code Source(s) Document(s ) Hematocrit 41.0-53. Below low normal <content [facility] [Volume 0 styleCode="Bold [place] Fraction] of ">Hematocrit Medical Blood by </content>37.1 Center Automated count % L<content styleCode="Ital ics"> (41.0-53.0 %)</content> Erythrocytes 4.4-5.9 Below low normal <content [facility] [#/volume] in styleCode="Bold [place] Blood by ">Red Blood Medical Automated count Cell Count Center </content>4.19 MCUMM L<content styleCode="Ital ics"> (4.4-5.9 MCUMM)</content > Hemoglobin 13.5-17. Below low normal <content [facility] [Mass/volume] in 5 styleCode="Bold [place] Blood ">Hemoglobin Medical </content>12.4 Center G/DL L<content styleCode="Ital ics"> (13.5-17.5 G/DL)</content> Erythrocyte mean 80.0-100 <content [facility] corpuscular .0 styleCode="Bold [place] volume [Entitic ">Mean Medical volume] by Corpuscular Center Automated count Volume </content>88.5 FL<content styleCode="Ital ics"> (80.0-100.0 FL)</content> Leukocytes 4.4-11.0 <content [facility] [#/volume] in styleCode="Bold [place] Blood by ">White Blood Medical Automated count Cell Count Center </content>9.77 KCUMM<content styleCode="Ital ics"> (4.4-11.0 KCUMM)</content > Erythrocyte mean 32.0-37. <content [facility] corpuscular 0 styleCode="Bold [place] hemoglobin ">Mean Corpus. Medical concentration Hgb Center [Mass/volume] by Concentration Automated count (MCHC) </content>33.4 G/DL<content styleCode="Ital ics"> (32.0-37.0 G/DL)</content> Erythrocyte 11.5-14. Above high <content [facility] distribution 5 normal styleCode="Bold [place] width [Ratio] by ">Red Cell Medical Automated count Distribution Center Width </content>14.6 % H<content styleCode="Ital ics"> (11.5-14.5 %)</content> Platelet mean 8.0-11.0 <content Saint volume [Entitic styleCode="Bold [place] volume] in Blood ">Mean Platelet Medical by Automated Volume Center count </content>9.8 FL<content styleCode="Ital ics"> (8.0-11.0 FL)</content> Platelets 130-400 <content Saint [#/volume] in styleCode="Bold [place] Blood by ">Platelet Medical Automated count Count Center </content>319 KCUMM<content styleCode="Ital ics"> (130-400 KCUMM)</content > Erythrocyte mean 26.0-34. <content [facility] corpuscular 0 styleCode="Bold [place] hemoglobin ">Mean Medical [Entitic mass] Corposcular Center by Automated Hemoglobin count </content>29.6 PG<content styleCode="Ital ics"> (26.0-34.0 PG)</content> UNK 0.0 <content [facility] styleCode="Bold [place] ">Nucleated Red Medical Blood Cell Center Count </content>0.00 KCUMM<content styleCode="Ital ics"> (0.0 KCUMM)</content > UNK 0 <content [facility] styleCode="Bold [place] ">Nucleated Red Medical Blood Cell Center </content>0.0 /100<content styleCode="Ital ics"> (0 /100)</content> ID Date Data Source CHMROUTINECCDA.[id number] 04/24/2020 02:36:00 AM EDT [facility] -0400 Name Value Range Interpretation Description Data Sup porting Code Source(s) Document(s ) Cannabinoids <content [facility] [Presence] in styleCode="Darrel [place] Urine by Screen d">Cannabinoid Medical method >50 ng/mL s Center </content>NEGA TIVE NG/ML (Reference Range: not available)<br/ > ID Date Data Source Liver 04/24/2020 02:35:00 AM EDT [facility] Profile.[id number] Name Value Range Interpretation Description Data Sup porting Code Source(s) Document(s ) Bilirubin.total 0.2-1.3 Below low <content [facility] [Mass/volume] in normal styleCode="Bold"> [facility] Serum or Plasma Bilirubin Total Medical </content>< 0.2 Center MG/DL L<content styleCode="Italic s"> (0.2-1.3 MG/DL)</content> Alkaline 38-126 <content [facility] phosphatase styleCode="Bold"> [facility] [Enzymatic Alkaline Medical activity/volume] Phosphatase (ALP) Cente r in Serum or Plasma </content>72 IU/L<content styleCode="Italic s"> (38-126 IU/L)</content> Alanine 7-50 <content [facility] aminotransferase styleCode="Bold"> [facility] [Enzymatic Alanine Medical activity/volume] Aminotransferase Center in Serum or Plasma (ALT) </content>19 IU/L<content styleCode="Italic s"> (7-50 IU/L)</content> Aspartate 17-59 <content [facility] aminotransferase styleCode="Bold"> [facility] [Enzymatic Aspartate Medical activity/volume] Aminotransferase Center in Serum or Plasma (AST) </content>29 IU/L<content styleCode="Italic s"> (17-59 IU/L)</content> Albumin 3.5-5.0 <content [facility] [Mass/volume] in styleCode="Bold"> [facility] Serum or Plasma Albumin Medical </content>4.5 Center G/DL<content styleCode="Italic s"> (3.5-5.0 G/DL)</content> UNK 0.0-0.3 <content [facility] styleCode="Bold"> [facility] Bilirubin, Direct Medical </content>< 0.2 Center MG/DL<content styleCode="Italic s"> (0.0-0.3 MG/DL)</content> ID Date Data Source GFR(Creatinine).[id number] 04/24/2020 02:35:00 AM EDT [facility] 0-0400 Name Value Range Interpretation Code Description Data Saritha rce(s) Supporting Document(s ) UNK > 60 <content [facility] [place] styleCode="Bold"> Medical Cent er EGFR </content>150 GFR<content styleCode="Italic s"> (> 60 GFR)</content> ID Date Data Source [facility].[id number] 04/24/2020 02:35:00 AM EDT [facility] Name Value Range Interpretation Description Data Sup porting Code Source(s) Document(s ) UNK 9-20 <content [facility] styleCode="Bold"> [place] BUN </content>10 Medical MG/DL<content Center styleCode="Italic s"> (9-20 MG/DL)</content> Carbon dioxide, 22-30 <content [facility] total styleCode="Bold"> [place] [Moles/volume] in Carbon Dioxide Medical Serum or Plasma </content>30 Center MEQ/L<content styleCode="Italic s"> (22-30 MEQ/L)</content> Chloride 98-107 <content [facility] [Moles/volume] in styleCode="Bold"> [facility] Serum or Plasma Chloride Medical </content>103 Center MEQ/L<content styleCode="Italic s"> (98-107 MEQ/L)</content> Sodium 137-145 <content [facility] [Moles/volume] in styleCode="Bold"> [facility] Serum or Plasma Sodium Medical </content>138 Center MEQ/L<content styleCode="Italic s"> (137-145 MEQ/L)</content> Potassium 3.5-5.3 <content [facility] [Moles/volume] in styleCode="Bold"> [facility] Serum or Plasma Potassium Medical </content>4.1 Center MEQ/L<content styleCode="Italic s"> (3.5-5.3 MEQ/L)</content> Aspartate 17-59 <content [facility] aminotransferase styleCode="Bold"> [facility] [Enzymatic Aspartate Medical activity/volume] Aminotransferase Center in Serum or Plasma (AST) </content>29 IU/L<content styleCode="Italic s"> (17-59 IU/L)</content> Glucose 74-106 Above high <content [facility] [Mass/volume] in normal styleCode="Bold"> [facility] Serum or Plasma Glucose Medical </content>139 Center MG/DL H<content styleCode="Italic s"> (74-106 MG/DL)</content> Calcium 8.4-10. <content [facility] [Mass/volume] in 2 styleCode="Bold"> [facility] Serum or Plasma Calcium Medical </content>9.3 Center MG/DL<content styleCode="Italic s"> (8.4-10.2 MG/DL)</content> UNK > 60 <content [facility] styleCode="Bold"> [place] EGFR Medical </content>150 Center GFR<content styleCode="Italic s"> (> 60 GFR)</content> Alanine 7-50 <content [facility] aminotransferase styleCode="Bold"> [facility] [Enzymatic Alanine Medical activity/volume] Aminotransferase Center in Serum or Plasma (ALT) </content>19 IU/L<content styleCode="Italic s"> (7-50 IU/L)</content> Creatinine 0.5-1.3 <content [facility] [Mass/volume] in styleCode="Bold"> [facility] Serum or Plasma Creatinine Medical </content>0.8 Center MG/DL<content styleCode="Italic s"> (0.5-1.3 MG/DL)</content> Alkaline 38-126 <content [facility] phosphatase styleCode="Bold"> [place] [Enzymatic Alkaline Medical activity/volume] Phosphatase (ALP) Cente r in Serum or Plasma </content>72 IU/L<content styleCode="Italic s"> (38-126 IU/L)</content> Bilirubin.total 0.2-1.3 Below low <content [facility] [Mass/volume] in normal styleCode="Bold"> [facility] Serum or Plasma Bilirubin Total Medical </content>< 0.2 Center MG/DL L<content styleCode="Italic s"> (0.2-1.3 MG/DL)</content> Albumin 3.5-5.0 <content [facility] [Mass/volume] in styleCode="Bold"> [facility] Serum or Plasma Albumin Medical </content>4.5 Center G/DL<content styleCode="Italic s"> (3.5-5.0 G/DL)</content> ID Date Data Source [id number] 04/24/2020 12:00:00 AM EDT [facility] Name Value Range Interpretation Code Description Data Saritha rce(s) Supporting Document(s ) 2019-nCoV NYSDOH RNA XXX DANIEL+probe- Imp This lab was ordered by [facility] and reported by [employer]. ID Date Data Source LIPID.[id number] 04/01/2020 06:35:00 AM EDT [facility] Name Value Range Interpretation Description Data Sup porting Code Source(s) Document(s ) Triglyceride < 150 <content Saint [Mass/volume] in styleCode="[facility] Serum or Plasma d">Triglycerid [facility] </content>116 MG/DL<content styleCode="Tala lics"> (< 150 MG/DL)</conten t> Cholesterol -<200 <content Saint [Mass/volume] in styleCode="[facility] Serum or Plasma d">Cholesterol Medical </content>162 Center MG/DL<content styleCode="Tala lics"> (-<200 MG/DL)</conten t> UNK > 60 Below low normal <content Saint styleCode="[facility] d">HDL- Medical Cholesterol [place] </content>43 MG/DL L<content styleCode="Tala lics"> (> 60 MG/DL)</conten t> UNK < 100 <content [facility] styleCode="Darrel [place] d">[facility]est [facility] </content>96 MG/DL<content styleCode="Tala lics"> (< 100 MG/DL)</conten t> ID Date Data Source CHMROUTINECCDA.[id number] 04/01/2020 06:35:00 AM EDT [facility] -0400 Name Value Range Interpretation Code Description Data Saritha rce(s) Supporting Document(s ) UNK 4.2-5.8 <content [facility] styleCode="Bold" Medical Cente r >Hemoglobin A1C </content>5.7 %<content styleCode="Itali cs"> (4.2-5.8 %)</content> ID Date Data Source Urinalysis.[id number] 03/31/2020 08:03:00 AM EDT [facility] 0 Name Value Range Interpretation Description Data Sup porting Code Source(s) Document(s ) Color of Urine YELLOW <content Saint styleCode="Darrel Martínezs d">Color, [facility] Urine Center </content>YELL OW <content styleCode="Tala lics"> (YELLOW )</content> UNK CLEAR <content [facility] styleCode="Darrel [place] d">Urine Medical Clarity Center </content>WILLY R <content styleCode="Tala lics"> (CLEAR )</content> Specific 1.015-1.02 <content [facility] gravity of 5 styleCode="[facility]rel [facility] Urine by Test d">Urine Medical strip Specific Center [place] </content>1.01 5 <content styleCode="Tala lics"> (1.015-1.025 )</content> Hemoglobin NEGATIVE <content [facility] [Presence] in styleCode="[facility] Urine by Test d">Urine Blood Medical strip </content>TRAC Center E-INTACT <content styleCode="Tala lics"> (NEGATIVE )</content> UNK NEGATIVE <content Saint styleCode="Darrel Martínezs d">Urine Medical Bilirubin Center </content>NEGA TIVE <content styleCode="Tala lics"> (NEGATIVE )</content> Glucose NEGATIVE <content [facility] [Mass/volume] styleCode="[facility] in Urine by d">Urine Medical Test strip Glucose Center </content>NEGA TIVE MG/DL<content styleCode="Tala lics"> (NEGATIVE MG/DL)</conten t> Ketones NEGATIVE <content [facility] [Mass/volume] styleCode="Darrel Martínezs in Urine by d">Urine Medical Test strip Ketone Center </content>NEGA TIVE MG/DL<content styleCode="Tala lics"> (NEGATIVE MG/DL)</conten t> Urobilinogen 0.2-1.0 <content [facility] [Units/volume] styleCode="Darrel Martínezs in Urine by d">Urine Medical Test strip Urobilinogen Center </content>0.2 MG/DL<content styleCode="Tala lics"> (0.2-1.0 MG/DL)</conten t> pH of Urine by 4.5-8.0 <content [facility] Test strip styleCode="Darrel [place] d">Urine pH Medical </content>6.0 Center <content styleCode="Tala lics"> (4.5-8.0 )</content> Leukocyte NEGATIVE <content [facility] esterase styleCode="Darrel Martínezs [Presence] in d">Urine Medical Urine by Test Leukocyte Center strip </content>NEGA TIVE <content styleCode="Tala lics"> (NEGATIVE )</content> Protein NEGATIVE <content Saint [Mass/volume] styleCode="Darrel Martínezs in Urine by d">Urine Medical Test strip Protein Center </content>NEGA TIVE MG/DL<content styleCode="Tala lics"> (NEGATIVE MG/DL)</conten t> Nitrite NEGATIVE <content [facility] [Presence] in styleCode="Darrel Martínezs Urine by Test d">Urine Medical strip Nitrite Center </content>NEGA TIVE <content styleCode="Tala lics"> (NEGATIVE )</content> UNK NONE SEEN <content Saint styleCode="Darrel [place] d">Epithelial Medical Cell Center </content>0-2 HPF<content styleCode="Tala lics"> (NONE SEEN HPF)</content> UNK 0-3 <content Saint styleCode="Darrel [place] d">Urine White Medical Blood Cell Center </content>0-3 HPF<content styleCode="Tala lics"> (0-3 HPF)</content> UNK 0-3 <content Saint styleCode="Darrel [place] d">Urine Red Medical Blood Cell Center </content>3-5 HPF<content styleCode="Tala lics"> (0-3 HPF)</content> ID Date Data Source [facility].[id number] 03/31/2020 08:03:00 AM EDT [facility] -0400 Name Value Range Interpretation Description Data Sup porting Code Source(s) Document(s ) Cannabinoids <content Saint [Presence] in styleCode="Darrel [facility] Urine by Screen d">Cannabinoid Medical method >50 ng/mL s Center </content>NEGA TIVE NG/ML (Reference Range: not available)<br/ > ID Date Data Source Liver 03/31/2020 07:52:00 AM EDT [facility] Profile.[id number] Name Value Range Interpretation Description Data Sup porting Code Source(s) Document(s ) Alanine 7-50 <content [facility] aminotransferase styleCode="Bold"> [facility] [Enzymatic Alanine Medical activity/volume] Aminotransferase Center in Serum or Plasma (ALT) </content>21 IU/L<content styleCode="Italic s"> (7-50 IU/L)</content> Alkaline 38-126 <content [facility] phosphatase styleCode="Bold"> [place] [Enzymatic Alkaline Medical activity/volume] Phosphatase (ALP) Cente r in Serum or Plasma </content>72 IU/L<content styleCode="Italic s"> (38-126 IU/L)</content> Aspartate 17-59 <content [facility] aminotransferase styleCode="Bold"> [facility] [Enzymatic Aspartate Medical activity/volume] Aminotransferase Center in Serum or Plasma (AST) </content>28 IU/L<content styleCode="Italic s"> (17-59 IU/L)</content> Albumin 3.5-5.0 <content [facility] [Mass/volume] in styleCode="Bold"> [facility] Serum or Plasma Albumin Medical </content>5.0 Center G/DL<content styleCode="Italic s"> (3.5-5.0 G/DL)</content> UNK 0.0-0.3 <content [facility] styleCode="Bold"> [place] Bilirubin, Direct Medical </content>< 0.2 Center MG/DL<content styleCode="Italic s"> (0.0-0.3 MG/DL)</content> Bilirubin.total 0.2-1.3 <content [facility] [Mass/volume] in styleCode="Bold"> [facility] Serum or Plasma Bilirubin Total Medical </content>0.2 Center MG/DL<content styleCode="Italic s"> (0.2-1.3 MG/DL)</content> ID Date Data Source HematologyRou.[id number] 03/31/2020 07:52:00 AM EDT [facility] 0400 Name Value Range Interpretation Description Data Sup porting Code Source(s) Document(s ) Leukocytes 4.4-11.0 <content [facility] [#/volume] in styleCode="Bold [place] Blood by ">White Blood Medical Automated count Cell Count Center </content>9.89 KCUMM<content styleCode="Ital ics"> (4.4-11.0 KCUMM)</content > Erythrocytes 4.4-5.9 <content [facility] [#/volume] in styleCode="Bold [place] Blood by ">Red Blood Medical Automated count Cell Count Center </content>4.49 MCUMM<content styleCode="Ital ics"> (4.4-5.9 MCUMM)</content > Hematocrit 41.0-53. Below low normal <content [facility] [Volume 0 styleCode="Bold [place] Fraction] of ">Hematocrit Medical Blood by </content>40.4 Center Automated count % L<content styleCode="Ital ics"> (41.0-53.0 %)</content> Erythrocyte mean 32.0-37. <content [facility] corpuscular 0 styleCode="Bold [place] hemoglobin ">Mean Corpus. Medical concentration Hgb Center [Mass/volume] by Concentration Automated count (MCHC) </content>33.7 G/DL<content styleCode="Ital ics"> (32.0-37.0 G/DL)</content> Hemoglobin 13.5-17. <content [facility] [Mass/volume] in 5 styleCode="Bold [place] Blood ">Hemoglobin Medical </content>13.6 Center G/DL<content styleCode="Ital ics"> (13.5-17.5 G/DL)</content> Erythrocyte mean 26.0-34. <content [facility] corpuscular 0 styleCode="Bold [place] hemoglobin ">Mean Medical [Entitic mass] Corposcular Center by Automated Hemoglobin count </content>30.3 PG<content styleCode="Ital ics"> (26.0-34.0 PG)</content> Erythrocyte mean 80.0-100 <content [facility] corpuscular .0 styleCode="Bold [place] volume [Entitic ">Mean Medical volume] by Corpuscular Center Automated count Volume </content>90.0 FL<content styleCode="Ital ics"> (80.0-100.0 FL)</content> Erythrocyte 11.5-14. <content [facility] distribution 5 styleCode="Bold [place] width [Ratio] by ">Red Cell Medical Automated count Distribution Center Width </content>13.4 %<content styleCode="Ital ics"> (11.5-14.5 %)</content> Platelet mean 8.0-11.0 <content [facility] volume [Entitic styleCode="Bold [place] volume] in Blood ">Mean Platelet Medical by Automated Volume Center count </content>9.8 FL<content styleCode="Ital ics"> (8.0-11.0 FL)</content> Platelets 130-400 <content Saint [#/volume] in styleCode="Bold [place] Blood by ">Platelet Medical Automated count Count Center </content>244 KCUMM<content styleCode="Ital ics"> (130-400 KCUMM)</content > UNK 0 <content Saint styleCode="Bold [place] ">Nucleated Red Medical Blood Cell Center </content>0.0 /100<content styleCode="Ital ics"> (0 /100)</content> UNK 0.0 <content Saint styleCode="Bold [place] ">Nucleated Red Medical Blood Cell Center Count </content>0.00 KCUMM<content styleCode="Ital ics"> (0.0 KCUMM)</content > ID Date Data Source GFR(Creatinine).[id number] 03/31/2020 07:52:00 AM EDT [facility] 0-0400 Name Value Range Interpretation Code Description Data Saritha rce(s) Supporting Document(s ) UNK > 60 <content [facility] styleCode="Bold"> Medical Cent er EGFR </content>175 GFR<content styleCode="Italic s"> (> 60 GFR)</content> ID Date Data Source [facility].[id number] 03/31/2020 07:52:00 AM EDT [facility] Name Value Range Interpretation Description Data Sup porting Code Source(s) Document(s ) Sodium 137-145 Below low <content Saint [Moles/volume] in normal styleCode="Bold"> [facility] Serum or Plasma Sodium Medical </content>135 Center MEQ/L L<content styleCode="Italic s"> (137-145 MEQ/L)</content> Potassium 3.5-5.3 <content Saint [Moles/volume] in styleCode="Bold"> [facility] Serum or Plasma Potassium Medical </content>3.7 Center MEQ/L<content styleCode="Italic s"> (3.5-5.3 MEQ/L)</content> Creatinine 0.5-1.3 <content Saint [Mass/volume] in styleCode="Bold"> [facility] hs Serum or Plasma Creatinine Medical </content>0.7 Center MG/DL<content styleCode="Italic s"> (0.5-1.3 MG/DL)</content> Chloride 98-107 <content [facility] [Moles/volume] in styleCode="Bold"> [facility]s Serum or Plasma Chloride Medical </content>99 Center MEQ/L<content styleCode="Italic s"> (98-107 MEQ/L)</content> UNK 9-20 <content [facility] styleCode="Bold"> [facility] BUN </content>12 Medical MG/DL<content Center styleCode="Italic s"> (9-20 MG/DL)</content> Carbon dioxide, 22-30 <content Saint total styleCode="Bold"> [place] [Moles/volume] in Carbon Dioxide Medical Serum or Plasma </content>25 Center MEQ/L<content styleCode="Italic s"> (22-30 MEQ/L)</content> Aspartate 17-59 <content [facility] aminotransferase styleCode="Bold"> [facility] hs [Enzymatic Aspartate Medical activity/volume] Aminotransferase Center in Serum or Plasma (AST) </content>28 IU/L<content styleCode="Italic s"> (17-59 IU/L)</content> Glucose 74-106 Above high <content Saint [Mass/volume] in normal styleCode="Bold"> [facility] hs Serum or Plasma Glucose Medical </content>126 Center MG/DL H<content styleCode="Italic s"> (74-106 MG/DL)</content> Calcium 8.4-10. <content [facility] [Mass/volume] in 2 styleCode="Bold"> [facility] hs Serum or Plasma Calcium Medical </content>9.1 Center MG/DL<content styleCode="Italic s"> (8.4-10.2 MG/DL)</content> Alkaline 38-126 <content [facility] phosphatase styleCode="Bold"> [facility] [Enzymatic Alkaline Medical activity/volume] Phosphatase (ALP) Cente r in Serum or Plasma </content>72 IU/L<content styleCode="Italic s"> (38-126 IU/L)</content> UNK > 60 <content [facility] styleCode="Bold"> [place] EGFR Medical </content>175 Center GFR<content styleCode="Italic s"> (> 60 GFR)</content> Alanine 7-50 <content [facility] aminotransferase styleCode="Bold"> [facility] [Enzymatic Alanine Medical activity/volume] Aminotransferase Center in Serum or Plasma (ALT) </content>21 IU/L<content styleCode="Italic s"> (7-50 IU/L)</content> Albumin 3.5-5.0 <content [facility] [Mass/volume] in styleCode="Bold"> [facility] hs Serum or Plasma Albumin Medical </content>5.0 Center G/DL<content styleCode="Italic s"> (3.5-5.0 G/DL)</content> Bilirubin.total 0.2-1.3 <content [facility] [Mass/volume] in styleCode="Bold"> [facility] hs Serum or Plasma Bilirubin Total Medical </content>0.2 Center MG/DL<content styleCode="Italic s"> (0.2-1.3 MG/DL)</content> ID Date Data Source [id number] 03/31/2020 12:00:00 AM EDT [facility] Name Value Range Interpretation Code Description Data Saritha rce(s) Supporting Document(s ) 2019-nCoV [facility] RNA XXX DANIEL+probe- Imp This lab was ordered by [facility] and reported by [facility]. ID Date Data Source [id number] 03/21/2020 11:30:00 PM EDT [facility] Name Value Range Interpretation Description Data Sup porting Code Source(s) Document(s ) SARS [facility] coronavirus 2 RNA This lab was ordered by [facility] and reported by [facility]. ID Date Data Source [id number] 02/14/2020 03:15:00 PM EDT [facility] Name Value Range Interpretation Description Data Sup porting Code Source(s) Document(s ) SARS [facility] coronavirus 2 RNA This lab was ordered by [facility] and reported by [facility]. ID Date Data Source [id number] 01/17/2020 12:30:00 AM EDT [facility] Name Value Range Interpretation Description Data Sup porting Code Source(s) Document(s ) 2018 Novel [facility] Coronavirus RNA Interpretation Unspecified Specimen Qualitative DANIEL Probe Detection This lab was ordered by [facility] [id number] and reported by [facility]. Procedure Social History Code Duration Value Status Description Data Source(s ) Smoking 05/12/2020 01:50:00 Daily Smoker completed Daily Smoker S [facility] EDT Center Smoking 05/12/2020 01:28:00 Daily Smoker completed Daily Smoker S [facility] EDT Center Smoking 05/12/2020 01:19:00 Daily Smoker completed Daily Smoker S [facility] EDT Center Smoking 04/24/2020 11:05:00 Daily Smoker completed Daily Smoker S [facility] EDT Center Smoking 04/24/2020 03:54:00 Daily Smoker completed Daily Smoker S [facility] EDT Center Smoking 04/24/2020 03:14:00 Daily Smoker completed Daily Smoker S [facility] EDT Center Smoking 04/24/2020 02:45:00 Daily Smoker completed Daily Smoker S [facility] EDT Center Smoking 04/24/2020 02:13:00 Daily Smoker completed Daily Smoker S [facility] EDT Center Smoking 03/31/2020 06:26:00 Daily Smoker completed Daily Smoker S [facility] EDT Center Smoking 03/31/2020 07:33:00 Daily Smoker completed Daily Smoker S [facility] EDT Center Smoking 03/31/2020 07:30:00 Daily Smoker completed Daily Smoker S [facility] EDT Center Smoking 03/31/2020 07:28:00 Daily Smoker completed Daily Smoker S [facility] EDT Center Vital Signs ID Date Data Source UNK Name Value Range Interpretation Code Description Data Source(s) Body weight 67.472933 kg 67.754657 kg [facility] Body temperature 36.792343 36.597542 [facility] Respiratory rate 20 /min 20 /min [facility] Oxygen saturation 98 % 98 % [facility] sandra in [facility] blood [facility] by Pulse oximetry Heart rate 94 /min 94 /min [facility] Body height 173.615143 173.221269 cm [facility] Diastolic blood 71 mm[Hg] 71 mm[Hg] [facility] Systolic blood 122 mm[Hg] 122 mm[Hg] [facility] Body mass index 22.3 kg/m2 22.3 kg/m2 [facility] (BMI) [Ratio] Medical [facility] ter Heart rate 86 /min 86 /min [facility] Diastolic blood 77 mm[Hg] 77 mm[Hg] [facility] Systolic blood 111 mm[Hg] 111 mm[Hg] [facility] Body temperature 36.234239 36.304188 [facility] Respiratory rate 19 /min 19 /min [facility] Heart rate 64 /min 64 /min [facility] Diastolic blood 72 mm[Hg] 72 mm[Hg] [facility] Systolic blood 114 mm[Hg] 114 mm[Hg] [facility] Body weight 62.506619 kg 62.151375 kg [facility] Measured [facility] Center Body temperature 36.854671 36.026279 [facility] Respiratory rate 19 /min 19 /min [facility] Heart rate 97 /min 97 /min [facility] Body height 177.540613 177.206054 cm [facility] Diastolic blood 65 mm[Hg] 65 mm[Hg] [facility] pressure Medical Center Systolic blood 110 mm[Hg] 110 mm[Hg] [facility] Body mass index 19.80 kg/m2 19.80 kg/m2 [facility] osephs (BMI) [Ratio] Medical [facility] ter Body temperature 36.311611 36.428552 [facility] Respiratory rate 17 /min 17 /min [facility] Oxygen saturation 97 % 97 % [facility] in Arterial blood Medical Center by Pulse oximetry Heart rate 89 /min 89 /min [facility] Diastolic blood 76 mm[Hg] 76 mm[Hg] [facility] Medical Center Systolic blood 131 mm[Hg] 131 mm[Hg] [facility] Heart rate 75 /min 75 /min [facility] Diastolic blood 84 mm[Hg] 84 mm[Hg] [facility] Medical Center Systolic blood 110 mm[Hg] 110 mm[Hg] [facility] Body weight 64.720657 kg 64.447327 kg [facility] Measured Medical Center Body temperature 36.678471 36.059507 [facility] Respiratory rate 18 /min 18 /min [facility] Heart rate 71 /min 71 /min [facility] Diastolic blood 83 mm[Hg] 83 mm[Hg] [facility] Medical Center Systolic blood 121 mm[Hg] 121 mm[Hg] [facility] Heart rate 71 /min 71 /min [facility] Diastolic blood 86 mm[Hg] 86 mm[Hg] [facility] Medical Center Systolic blood 120 mm[Hg] 120 mm[Hg] [facility] Body temperature 36.767238 36.457798 [facility] Respiratory rate 20 /min 20 /min [facility] Oxygen saturation 99 % 99 % [facility] in Arterial blood Medical Center by Pulse oximetry Heart rate 68 /min 68 /min [facility] Diastolic blood 84 mm[Hg] 84 mm[Hg] [facility] Medical Center Systolic blood 124 mm[Hg] 124 mm[Hg] [facility] Body weight 65.412854 kg 65.039091 kg [facility] Measured [facility] Body height 177.330528 177.425121 cm [facility] Body mass index 20.70 kg/m2 20.70 kg/m2 [facility] (BMI) [Ratio] Medical [facility] ter Body weight 65.137201 kg 65.598161 kg [facility] Measured [facility] Body temperature 36.134372 36.983967 [facility] Respiratory rate 18 /min 18 /min [facility] Heart rate 77 /min 77 /min [facility] Body height 177.462710 177.197980 cm [facility] Diastolic blood 82 mm[Hg] 82 mm[Hg] [facility] Systolic blood 127 mm[Hg] 127 mm[Hg] [facility] Body mass index 20.66 kg/m2 20.66 kg/m2 [facility] (BMI) [Ratio] Medical [facility] ter Heart rate 71 /min 71 /min [facility] Diastolic blood 74 mm[Hg] 74 mm[Hg] [facility] Systolic blood 153 mm[Hg] 153 mm[Hg] [facility] Body temperature 37.026458 37.242269 [facility] Respiratory rate 18 /min 18 /min [facility] Oxygen saturation 99 % 99 % [facility] in [facility] blood [facility] by Pulse oximetry Heart rate 80 /min 80 /min [facility] Diastolic blood 86 mm[Hg] 86 mm[Hg] [facility] Systolic blood 138 mm[Hg] 138 mm[Hg] [facility] Body temperature 36.215798 36.216987 [facility] Respiratory rate 17 /min 17 /min [facility] Oxygen saturation 98 % 98 % [facility] in [facility] blood [facility] by Pulse oximetry Body temperature 37.076292 37.452856 [facility] Respiratory rate 18 /min 18 /min [facility] Heart rate 90 /min 90 /min [facility] Diastolic blood 48 mm[Hg] 48 mm[Hg] [facility] pressure Medical Center Systolic blood 106 mm[Hg] 106 mm[Hg] [facility] Oxygen saturation 98 % 98 % [facility] in Arterial blood [facility] by Pulse oximetry Body temperature 36.630445 36.424541 [facility] Respiratory rate 17 /min 17 /min [facility] Heart rate 91 /min 91 /min [facility] Diastolic blood 78 mm[Hg] 78 mm[Hg] [facility] pressure Medical Center Systolic blood 132 mm[Hg] 132 mm[Hg] [facility] Body weight 62.270360 kg 62.881766 kg [facility] Measured Medical Center Oxygen saturation 99 % 99 % [facility] in Arterial blood [facility] by Pulse oximetry Body height 177.490501 177.283998 cm [facility] Body mass index 19.8 kg/m2 19.8 kg/m2 [facility] (BMI) [Ratio] Medical [facility]
--- NOTE | 2020-05-12 18:16 | BHS.RME ---
2019 N Coronavirus Screen - COVID-19 Screening Questions Dx of COVID-19 or had a positive test in the last 4 weeks?: No Contact with known/suspected COVID patient in last 14 days?: No Any of these symptoms or contact with someone who has?: None (nausea & vomiting from alcohol withdrawal) Traveled domestically/internationally in the last 14 days?: No Screen score: 0 Screen result: Further Evaluation Substance Use & Tx History - Substance Use History Alcohol Substance amount: 2 pints Gin Frequency of use: Daily Substance route: Oral Date of Last Use: 05/12/20 - Last Treatment Date of last treatment: 03/21/2020-03/30/2020 Treatment type: Substance Use Disorder (BNOG) Where was last treatment: Detox Physical/Psych/Mental Status - Behavior General Behavior: Increased activity (restlessness, agitation) Eye Contact: Excessive Other Behaviors: Mannerisms - Cooperativeness Cooperativeness: Cooperative - Physical Health Problems Is patient presently having any pain?: No Does patient presently have any injuries (include location): No Does patient currently have a fever: No Is patient : No CIWA Nausea/Vomitin (vomiting x 2) Muscle Tremors: 6 Anxiety: 4-Mod. Anxious/Guarded Agitation: 2 Paroxysmal Sweats: 2 Orientation: 1-Uncertain about Date Tacttile Disturbances: 0-None Auditory Disturbances: 0-None Visual Disturbances: 0-None Headache: 3-Moderate CIWA-Ar Total Score: 21 Treatment Recommendation - Level of Care Level of Care: Opioid Treatment Program (OTP) (Alcohol detoxification)
--- NOTE | 2020-05-12 18:21 | HP ---
CIWA Score Nausea/Vomitin (vomiting x 5) Muscle Tremors: 6 Anxiety: 4-Mod. Anxious/Guarded Agitation: 2 Paroxysmal Sweats: 2 Orientation: 1-Uncertain about Date Tacttile Disturbances: 0-None Auditory Disturbances: 0-None Visual Disturbances: 0-None Headache: 3-Moderate CIWA-Ar Total Score: 21 - Admission Criteria OASAS Guidelines: Admission for Medically Managed Detox: Requires at least one of the followin. CIWA greater than 12 2. Seizures within the past 24 hours 3. Delirium tremens within the past 24 hours 4. Hallucinations within the past 24 hours 5. Acute intervention needed for co occurring medical disorder 6. Acute intervention needed for co occurring psychiatric disorder 7. Severe withdrawal that cannot be handled at a lower level of care (continued vomiting, continued diarrhea, abnormal vital signs) requiring intravenous medication and/or fluids 8. Admitting History and Physical - Past Medical History Pulmonary: Yes: Asthma Psych: Yes: Anxiety, Bipolar - Past Surgical History Past Surgical History: Yes: None - Smoking History Smoking history: Current every day smoker Have you smoked in the past 12 months: Yes Aproximately how many cigarettes per day: 20 - Alcohol/Substance Use Hx Alcohol Use: No - Social History History of Recent Travel: No Admission ROS [facility] Chief Complaint: Alcohol intoxication Allergies/Adverse Reactions: Allergies Allergy/AdvReac Type Severity Reaction Status Date / Time penicillin G Allergy Unknown UNKNOWN Verified 05/12/20 20:43 History of Present Illness: 24 years old male with 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 His last admission was for the period 03/21/2020-03/30/2020 and he reports that he relapsed about 2 weeks post discharge. He drinks 2 pints of Gin daily. He has medical history of asthma, neuropathy and psych. history of depression, bipolar disorder, ADHD and anxiety. Patient denies suicide attempt/ suicidal ideation at this time. He is unemployed, homeless and reports that he is on parole. 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 Exam Limitations: Intoxication - Ebola screening Have you traveled outside of the country in the last 21 days: No Have you had contact with anyone from an Ebola affected area: No Have you been sick,other than usual withdrawal symptoms: No Do you have a fever: No - Review of Systems Constitutional: Chills, Loss of Appetite, Malaise EENT: reports: No Symptoms Reported Respiratory: reports: No Symptoms reported Cardiac: reports: No Symptoms Reported GI: reports: Poor Appetite, Poor Fluid Intake, Vomiting (x 5), Abdominal cramping : reports: No Symptoms Reported Musculoskeletal: reports: No Symptoms Reported Integumentary: reports: Dryness, Flushing Neuro: reports: Tremors Endocrine: reports: No Symptoms Reported Hematology: reports: No Symptoms Reported Psychiatric: reports: Anxious, Depressed Other Systems: Reviewed and Negative Patient History - Patient Medical History Hx Anemia: No Hx Asthma: Yes Hx Chronic Obstructive Pulmonary Disease (COPD): No Hx Cancer: No Hx Cardiac Disorders: No Hx Congestive Heart Failure: No Hx Hypertension: No Hx Hypercholesterolemia: No Hx Pacemaker: No HX Cerebrovascular Accident: No Hx Seizures: No Hx Dementia: No Hx Diabetes: No Hx Gastrointestinal Disorders: No Hx Liver Disease: No Hx Genitourinary Disorders: No Hx Sexually Transmitted Disorders: No Hx Renal Disease (ESRD): No Hx Thyroid Disease: No Hx Human Immunodeficiency Virus (HIV): No (Negative 2020) Hx Hepatitis C: No Hx Depression: No Hx Suicide Attempt: No (Denies suicidal ideation at this time) Hx Bipolar Disorder: Yes (+ anxiety) Hx Schizophrenia: No Other Medical History: Neuropathy - Patient Surgical History Past Surgical History: No Hx Neurologic Surgery: No Hx Cataract Extraction: No Hx Cardiac Surgery: No Hx Lung Surgery: No Hx Abdominal Surgery: No Hx Appendectomy: No Hx Cholecystectomy: No Hx Genitourinary Surgery: No Hx Orthopedic Surgery: No Anesthesia Reaction: No - PPD History Previous Implant?: Yes Documented Results: Negative w/proof Implanted On Prior [facility] Admission?: Yes Date: 02/14/20 Results: 0 mm - Reproductive History Patient is a Female of Child Bearing Age (11 -55 yrs old): No (Male) - Smoking Cessation Smoking history: Current every day smoker Have you smoked in the past 12 months: Yes Aproximately how many cigarettes per day: 20 Hx Chewing Tobacco Use: No Initiated information on smoking cessation: Yes 'Breaking Loose' booklet given: 05/12/20 - Substance & Tx. History Hx Alcohol Use: Yes Substance Use Type: Alcohol Hx Substance Use Treatment: Yes ([facility]) - Substances abused Alcohol Substance route: Oral Frequency: Daily Amount used: 2 pints Gin Age of first use: 13 Date of last use: 05/12/20 Admission Physical Exam [facility] - Physical General Appearance: Yes: Intoxicated, Tremorous, Irritable, Sweating, Anxious HEENTM: Yes: Within Normal Limits Respiratory: Yes: Lungs Clear, Normal Breath Sounds, No Respiratory Distress Neck: Yes: Within Normal Limits Breast: Yes: Breast Exam Deferred Cardiology: Yes: Tachycardia Abdominal: Yes: Normal Bowel Sounds Genitourinary: Yes: Within Normal Limits Back: Yes: Normal Inspection Musculoskeletal: Yes: Back pain, Muscle Pain Extremities: Yes: Tremors Neurological: Yes: Within Normal Limits Integumentary: Yes: Warm Lymphatic: Yes: Within Normal Limits - Diagnostic (1) Alcohol dependence with withdrawal, uncomplicated Current Visit: Yes Status: Acute (2) Bipolar disorder Current Visit: Yes Status: Chronic Qualifiers: Active/Remission status: remission status unspecified Qualified Code(s): F31.9 - Bipolar disorder, unspecified (3) Anxiety Current Visit: Yes Status: Chronic (4) Asthma Current Visit: Yes Status: Chronic Qualifiers: Asthma severity: mild Asthma persistence: intermittent Asthma complication type: uncomplicated Qualified Code(s): J45.20 - Mild intermittent asthma, uncomplicated (5) Depression Current Visit: Yes Status: Chronic Qualifiers: Depression Type: unspecified Qualified Code(s): F32.9 - Major depressive disorder, single episode, unspecified (6) History of asthma Current Visit: Yes Status: Chronic (7) History of attention deficit hyperactivity disorder (ADHD) Current Visit: Yes Status: Chronic (8) Insomnia Current Visit: No Status: Chronic (9) Neuropathy Current Visit: Yes Status: Chronic (10) Nicotine dependence Current Visit: Yes Status: Chronic Qualifiers: Nicotine product type: cigarettes Substance use status: uncomplicated Qualified Code(s): F17.210 - Nicotine dependence, cigarettes, uncomplicated Cleared for Admission [facility] - Detox or Rehab [facility] Level of Care: Medically Managed Detox Regimen/Protocol: Librium Claeared for Rehab Admission: No Breathalyzer - Breathalyzer Breathalyzer: 0 Urine Drug Screen - Test Device Lot number: [id number] Expiration date: 11/03/21 - Control Is test valid?: Yes - Results Drug screen NEGATIVE: Yes Inpatient Rehab Admission - Rehab Decision to Admit Inpatient rehab admission?: No
[2020-05-12 19:21] VITALS: BMI 21.2
--- OUTSIDE RECORDS SUMMARY | 2020-05-12 20:54 | XMS ---
:1995 Author Organization [facility] Care Team Providers Name Role Phone ED [...] is protected by Article 27-F of the [place] State Public Health law. If you continue you may haveaccess to information: Regarding HIV / AIDS; Provided by facilities licensed or operated by the [facility] Office of Mental Health; or Provided by the [facility] Office for People With Developmental Disabilities. If such information is present, then the following [facility] mandated warning applies: This information has [...] law may result in a fine or mcfp sentence or both. A general authorization for the release of medical or other information is NOT sufficient authorization for further disclosure. Encounters Encounter Providers Location Date Indications Data Source(s ) Emergency Attender: HODAN ED H 05/12/2020 [facility] STAFF 01:12:00 PM [facility] PHYSICIANAttender: EDT - STAFF ED STAFF 05/12/2020 PHYSICIANAdmitter: 05:10:00 PM [facility] [facility] STAFF EDT PHYSICIANReferrer: ZUNASSIGNED Patient discharged. Inpatient Attender: KAJAL Sanchez-HAL2 04/24/2020 01:42:00 [facility] ANDREWIAttender: STAFF ED AM EDT - 05/12/2020 [facility] STAFF PHYSICIANAdmitter: 01:42:00 PM EDT MADHURICHRYSTAL PRINGLEAS ANDREWIReferrer: IRANNAI GIBSON IRUANI Patient discharged. Inpatient Attender: KAJAL Sanchez-HAL2 03/31/2020 06:55:00 [facility] STAFF ED AM EDT - 04/06/2020 [facility] STAFF PHYSICIANAdmitter: 03:50:00 PM EDT KAJAL GIBSON IRANNAIReferrer: IRANNAI GIBSON IRUANI Patient discharged. Insurance Providers Payer name Policy type Policy ID Covered Covered alliance party's Policy P kimberly / Coverage alliance party ID relationship to [place] [facility] ormation type [place] MED[place] [id number] SP [id number] W [id number] 01 [id number] Problems, Conditions, and Diagnoses Code Display Name Description Problem Type Effective Data Sour ce(s) Dates J45.909 Unspecified UNSPECIFIED Diagnosis 04/06/2020 [facility] asthma, ASTHMA, 03:50:00 PM [facility] uncomplicated UNCOMPLICATED EDT R45.851 Suicidal ideations SUICIDAL IDEATIONS Diagnosis 0 [facility] 03:50:00 PM [facility] EDT F11.94 Opioid use, OPIOID USE, Diagnosis 04/06/2020 [facility] unspecified with UNSPECIFIED WITH 03:50:00 PM [...] MILD EDT Results ID Date Data Source Urinalysis.[id number] 04/24/2020 02:36:00 AM EDT [facility] 0 Name Value Range Interpretation Description [...] by Test d">Urine Medical strip Specific Center [place] </content>1.01 5 <content styleCode="Tala lics"> (1.015-1.025 )</content> [...] (0.2-1.0 MG/DL)</conten t> ID Date Data Source HematologyRou.[id number] 04/24/2020 02:36:00 AM EDT [facility] 0400 Name Value Range Interpretation Description Data [...] ics"> (0 /100)</content> ID Date Data Source CHMROUTINECCDA.[id number] 04/24/2020 02:36:00 AM EDT [facility] -0400 Name Value Range Interpretation Description Data Sup porting Code Source(s) Document(s ) Cannabinoids <content Saint [Presence] in styleCode="[facility] [place] Urine by Screen d">Cannabinoid Medical method >50 ng/mL s Center </content>NEGA TIVE NG/ML (Reference Range: not available)<br/ > ID Date Data Source Liver 04/24/2020 02:35:00 AM EDT [facility] Profile.[id number] Name Value Range Interpretation Description Data Sup porting Code Source(s) Document(s ) Bilirubin.total 0.2-1.3 Below low <content Saint [Mass/volume] in normal styleCode="Bold"> [facility] Serum or Plasma Bilirubin Total Medical </content>< 0.2 Center MG/DL L<content styleCode="Italic s"> (0.2-1.3 MG/DL)</content> Alkaline 38-126 <content Saint phosphatase styleCode="Bold"> [facility] [Enzymatic Alkaline Medical activity/volume] Phosphatase (ALP) Cente [...] (3.5-5.0 G/DL)</content> UNK 0.0-0.3 <content Saint styleCode="Bold"> [facility] Bilirubin, Direct Medical </content>< 0.2 Center MG/DL<content styleCode="Italic s"> (0.0-0.3 MG/DL)</content> ID Date Data Source GFR(Creatinine).[id number] 04/24/2020 02:35:00 AM EDT [facility] 0-0400 Name Value Range Interpretation Code Description Data Saritha rce(s) Supporting Document(s ) UNK > 60 <content [facility] [place] styleCode="Bold"> Medical Cent er EGFR </content>150 GFR<content styleCode="Italic s"> (> 60 GFR)</content> ID Date Data Source [facility].[id number] 04/24/2020 02:35:00 AM EDT [facility] Name Value Range Interpretation Description Data Sup porting Code Source(s) Document(s ) UNK 9-20 <content Saint styleCode="Bold"> [place] BUN </content>10 Medical MG/DL<content Center styleCode="Italic s"> (9-20 MG/DL)</content> Carbon dioxide, 22-30 <content Saint total styleCode="Bold"> [place] [Moles/volume] in Carbon Dioxide Medical Serum or Plasma </content>30 Center MEQ/L<content styleCode="Italic s"> (22-30 MEQ/L)</content> Chloride 98-107 <content Saint [Moles/volume] in styleCode="Bold"> [facility] Serum or Plasma Chloride Medical </content>103 Center MEQ/L<content styleCode="Italic s"> (98-107 MEQ/L)</content> Sodium 137-145 <content Saint [Moles/volume] in styleCode="Bold"> [facility] Serum or Plasma Sodium Medical </content>138 Center MEQ/L<content styleCode="Italic s"> (137-145 MEQ/L)</content> Potassium 3.5-5.3 <content Saint [Moles/volume] in styleCode="Bold"> [facility] Serum or Plasma Potassium Medical </content>4.1 Center [...] s"> (3.5-5.0 G/DL)</content> ID Date Data Source [id number] 04/24/2020 12:00:00 AM EDT [facility] Name Value Range Interpretation Code Description Data Saritha rce(s) Supporting Document(s ) 2019-nCoV [facility] RNA XXX DANIEL+probe- Imp This lab was ordered by [facility] and reported by [employer]. ID Date Data Source LIPID.[id number] 04/01/2020 06:35:00 AM EDT [facility] Name Value Range Interpretation Description Data Sup porting Code Source(s) Document(s ) Triglyceride < 150 <content Saint [Mass/volume] in styleCode="[facility] Serum or Plasma d">Triglycerid [facility] </content>116 MG/DL<content styleCode="Tala lics"> (< 150 MG/DL)</conten t> Cholesterol -<200 <content Saint [Mass/volume] in styleCode="[facility] Serum or Plasma d">Cholesterol Medical </content>162 Center MG/DL<content styleCode="Tala lics"> (-<200 MG/DL)</conten t> UNK > 60 Below low normal <content Saint styleCode="[facility] d">HDL- Medical Cholesterol [place] </content>43 MG/DL L<content styleCode="Tala lics"> (> 60 MG/DL)</conten t> UNK < 100 <content [facility] styleCode="[facility]rel [place] d">LDL-Cholest [facility] </content>96 MG/DL<content styleCode="Tala lics"> (< 100 MG/DL)</conten t> ID Date Data Source CHMROUTINECCDA.[id number] 04/01/2020 06:35:00 AM EDT [facility] -0400 Name Value Range Interpretation Code Description Data Saritha rce(s) Supporting Document(s ) UNK 4.2-5.8 <content [facility] styleCode="Bold" Medical Cente r >Hemoglobin A1C </content>5.7 %<content styleCode="Itali cs"> (4.2-5.8 %)</content> ID Date Data Source Urinalysis.[id number] 03/31/2020 08:03:00 AM EDT [facility] 0 Name Value Range Interpretation Description Data Sup porting Code Source(s) Document(s ) Color of Urine YELLOW <content Saint styleCode="Darrel Martínezs d">Color, [facility] Urine Center </content>YELL OW <content styleCode="Tala lics"> (YELLOW )</content> UNK CLEAR <content Saint styleCode="[facility] [place] d">Urine Medical Clarity Center </content>WILLY R <content styleCode="Tala lics"> (CLEAR )</content> Specific 1.015-1.02 <content Saint gravity of 5 styleCode="[facility] Urine by Test d">Urine Medical strip Specific [facility] [place] </content>1.01 5 <content styleCode="Tala lics"> (1.015-1.025 )</content> [...] )</content> Protein NEGATIVE <content Saint [Mass/volume] styleCode="Darrel Martínzes in Urine by d">Urine Medical Test strip [...] lics"> (0-3 HPF)</content> ID Date Data Source [facility].[id number] 03/31/2020 08:03:00 AM EDT [facility] -0400 Name Value Range Interpretation Description Data Sup porting Code Source(s) Document(s ) Cannabinoids <content Saint [Presence] in styleCode="Darrel [facility] Urine by Screen d">Cannabinoid Medical method >50 ng/mL s Center </content>NEGA TIVE NG/ML (Reference Range: not available)<br/ > ID Date Data Source Liver 03/31/2020 07:52:00 AM EDT [facility] Profile.[id number] Name Value Range Interpretation Description Data Sup [...] s"> (0.2-1.3 MG/DL)</content> ID Date Data Source HematologyRou.[id number] 03/31/2020 07:52:00 AM EDT [facility] 0400 Name Value Range Interpretation Description Data [...] (0.0 KCUMM)</content > ID Date Data Source GFR(Creatinine).[id number] 03/31/2020 07:52:00 AM EDT [facility] 0-0400 Name Value Range Interpretation Code Description Data Saritha rce(s) Supporting Document(s ) UNK > 60 <content [facility] [place] styleCode="Bold"> Medical Cent er EGFR </content>175 GFR<content styleCode="Italic s"> (> 60 GFR)</content> ID Date Data Source [facility].[id number] 03/31/2020 07:52:00 AM EDT [facility] Name Value Range Interpretation Description Data [...] s"> (0.2-1.3 MG/DL)</content> ID Date Data Source [id number] 03/31/2020 12:00:00 AM EDT [facility] Name Value Range Interpretation Code Description Data Saritha rce(s) Supporting Document(s ) 2019-nCoV [facility] RNA XXX DANIEL+probe- Imp This lab was ordered by [facility] and reported by [employer]. ID Date Data Source [id number] 03/21/2020 11:30:00 PM EDT [facility] Name Value Range Interpretation Description Data Sup porting Code Source(s) Document(s ) SARS [facility] coronavirus 2 RNA This lab was ordered by [facility] and reported by [facility]. ID Date Data Source [id number] 02/14/2020 03:15:00 PM EDT [facility] Name Value Range Interpretation Description Data Sup porting Code Source(s) Document(s ) SARS [facility] coronavirus 2 RNA This lab was ordered by [facility] and reported by [facility]. ID Date Data Source [id number] 01/17/2020 12:30:00 AM EDT [facility] Name Value Range Interpretation Description Data Sup porting Code Source(s) Document(s ) 2018 Novel [facility] Coronavirus RNA Interpretation Unspecified Specimen Qualitative DANIEL Probe Detection This lab was ordered by [facility] [place] [address] and reported by [facility]. Procedure Social History Code Duration Value Status Description Data Source(s ) Smoking 05/12/2020 01:50:00 Daily Smoker completed Daily Smoker S [facility] EDT Center Smoking 05/12/2020 01:28:00 Daily Smoker completed Daily Smoker S [facility] EDT Center Smoking 05/12/2020 01:19:00 Daily Smoker completed Daily Smoker S [facility] EDT Center Smoking 04/24/2020 11:05:00 Daily Smoker completed Daily Smoker S [facility] EDT Center Smoking 04/24/2020 03:54:00 Daily Smoker completed Daily Smoker S [facility] EDT Center Smoking 04/24/2020 03:14:00 Daily Smoker completed Daily Smoker S [facility] EDT Center Smoking 04/24/2020 02:45:00 Daily Smoker completed Daily Smoker S [facility] EDT Center Smoking 04/24/2020 02:13:00 Daily Smoker completed Daily Smoker S [facility] EDT Center Smoking 03/31/2020 06:26:00 Daily Smoker completed Daily Smoker S [facility] EDT Center Smoking 03/31/2020 07:33:00 Daily Smoker completed Daily Smoker S [facility] EDT Center Smoking 03/31/2020 07:30:00 Daily Smoker completed Daily Smoker S [facility] EDT Center Smoking 03/31/2020 07:28:00 Daily Smoker completed Daily Smoker S [facility] EDT Center Vital Signs ID Date Data Source UNK Name Value Range Interpretation Code Description Data Source(s) Body weight 67.404037 kg 67.646541 kg [facility] Body temperature 36.605221 36.539907 [facility] Respiratory rate 20 /min 20 /min [facility] Oxygen saturation 98 % 98 % [facility] sandra in [facility] blood [facility] by Pulse oximetry Heart rate 94 /min 94 /min [facility] Body height 173.325722 173.251996 cm [facility] Diastolic blood 71 mm[Hg] 71 mm[Hg] [facility] Systolic blood 122 mm[Hg] 122 mm[Hg] [facility] Body mass index 22.3 kg/m2 22.3 kg/m2 [facility] (BMI) [Ratio] Medical [facility] ter Heart rate 86 /min 86 /min [facility] Diastolic blood 77 mm[Hg] 77 mm[Hg] [facility] Systolic blood 111 mm[Hg] 111 mm[Hg] [facility] Body temperature 36.255788 36.697376 [facility] Respiratory rate 19 /min 19 /min [facility] Heart rate 64 /min 64 /min [facility] Diastolic blood 72 mm[Hg] 72 mm[Hg] [facility] Systolic blood 114 mm[Hg] 114 mm[Hg] [facility] Body weight 62.959775 kg 62.357657 kg [facility] Measured Medical Center Body temperature 36.671048 36.360477 [facility] Respiratory rate 19 /min 19 /min [facility] Heart rate 97 /min 97 /min [facility] Body height 177.275981 177.337065 cm [facility] Diastolic blood 65 mm[Hg] 65 mm[Hg] [facility] pressure Medical Center Systolic blood 110 mm[Hg] 110 mm[Hg] [facility] Body mass index 19.80 kg/m2 19.80 kg/m2 [facility] osephs (BMI) [Ratio] Medical [facility] ter Body temperature 36.081329 36.566938 [facility] Respiratory rate 17 /min 17 /min [facility] Oxygen saturation 97 % 97 % [facility] in Arterial blood Medical Center by Pulse oximetry Heart rate 89 /min 89 /min [facility] Diastolic blood 76 mm[Hg] 76 mm[Hg] [facility] Systolic blood 131 mm[Hg] 131 mm[Hg] [facility] Heart rate 75 /min 75 /min [facility] Diastolic blood 84 mm[Hg] 84 mm[Hg] [facility] Systolic blood 110 mm[Hg] 110 mm[Hg] [facility] Body weight 64.351596 kg 64.344433 kg [facility] Measured [facility] Center Body temperature 36.284309 36.266355 [facility] Respiratory rate 18 /min 18 /min [facility] Heart rate 71 /min 71 /min [facility] Diastolic blood 83 mm[Hg] 83 mm[Hg] [facility] Systolic blood 121 mm[Hg] 121 mm[Hg] [facility] Heart rate 71 /min 71 /min [facility] Diastolic blood 86 mm[Hg] 86 mm[Hg] [facility] Systolic blood 120 mm[Hg] 120 mm[Hg] [facility] Body temperature 36.323655 36.759839 [facility] Center Respiratory rate 20 /min 20 /min [facility] Oxygen saturation 99 % 99 % [facility]ph[facility] in Arterial blood Medical Center by Pulse oximetry Heart rate 68 /min 68 /min [facility] Diastolic blood 84 mm[Hg] 84 mm[Hg] [facility] Systolic blood 124 mm[Hg] 124 mm[Hg] [facility] Body weight 65.277251 kg 65.836613 kg [facility] Measured Medical Center Body height 177.887680 177.756767 cm [facility] Body mass index 20.70 kg/m2 20.70 kg/m2 [facility] (BMI) [Ratio] Medical [facility] ter Body weight 65.914312 kg 65.226631 kg [facility] Measured [facility] Center Body temperature 36.192264 36.356431 [facility] Respiratory rate 18 /min 18 /min [facility] Heart rate 77 /min 77 /min [facility] Body height 177.803885 177.869997 cm [facility] Diastolic blood 82 mm[Hg] 82 mm[Hg] [facility] Center Systolic blood 127 mm[Hg] 127 mm[Hg] [facility] Body mass index 20.66 kg/m2 20.66 kg/m2 [facility] J osephs (BMI) [Ratio] Medical [facility] ter Heart rate 71 /min 71 /min [facility] Diastolic blood 74 mm[Hg] 74 mm[Hg] [facility] Systolic blood 153 mm[Hg] 153 mm[Hg] [facility] Body temperature 37.352054 37.186395 [facility] Respiratory rate 18 /min 18 /min [facility] Oxygen saturation 99 % 99 % [facility] in [facility] blood [facility] by Pulse oximetry Heart rate 80 /min 80 /min [facility] Diastolic blood 86 mm[Hg] 86 mm[Hg] [facility] Center Systolic blood 138 mm[Hg] 138 mm[Hg] [facility] Body temperature 36.717481 36.856370 [facility] Respiratory rate 17 /min 17 /min [facility] Oxygen saturation 98 % 98 % [facility] in [facility] blood [facility] by Pulse oximetry Body temperature 37.107170 37.299315 [facility] Respiratory rate 18 /min 18 /min [facility] Heart rate 90 /min 90 /min [facility] Diastolic blood 48 mm[Hg] 48 mm[Hg] [facility] pressure Medical Center Systolic blood 106 mm[Hg] 106 mm[Hg] [facility] Oxygen saturation 98 % 98 % [facility]ph[facility] in Arterial blood [facility] Center by Pulse oximetry Body temperature 36.675988 36.816004 [facility] Respiratory rate 17 /min 17 /min [facility] Heart rate 91 /min 91 /min [facility] Diastolic blood 78 mm[Hg] 78 mm[Hg] [facility] pressure Medical Center Systolic blood 132 mm[Hg] 132 mm[Hg] [facility] Center Body weight 62.439961 kg 62.250444 kg [facility] Measured Medical Center Oxygen saturation 99 % 99 % [facility] Willian pickensephs in Arterial blood [facility] Center by Pulse oximetry Body height 177.504733 177.053671 cm [facility] Center Body mass index 19.8 kg/m2 19.8 kg/m2 [facility] (BMI) [Ratio] Medical [place] [facility]
[2020-05-12] MEDS ORDERED: chlordiazePOXIDE HCL 25 MG CAPSULE PO PRN (21:04)
[2020-05-12] MEDS ORDERED: MAGNESIUM HYDROX 2400MG/30ML ORAL SUSPENSION 30 ML CUP PO PRN (21:04)
[2020-05-12] MEDS ORDERED: ONDANSETRON *ODT* 4 MG TABLET SL PRN (21:04)
[2020-05-12] MEDS ORDERED: MENTHOL/PHENOL 1 EACH UD MM PRN (21:04)
[2020-05-12] MEDS ORDERED: BISMUTH SUBSALICYLATE 524 MG/30 ML UD PO PRN (21:04)
[2020-05-12] MEDS ORDERED: MAG HYDROX/AL HYDROX/SIMETH 30 ML UNIT-DOSE CUP PO PRN (21:04)
[2020-05-12] MEDS ORDERED: hydrOXYzine PAMOATE 25 MG CAPSULE (FP) PO PRN (21:04)
[2020-05-12] MEDS ORDERED: NICOTINE POLACRILEX 2 MG GUM BUC PRN (21:04)
[2020-05-12] MEDS ORDERED: MAGNESIUM CITRATE 300 ML BOTTLE PO PRN (21:04)
[2020-05-12] MEDS ORDERED: ACETAMINOPHEN 325 MG TABLET (FP) PO PRN ×2 (21:04)
[2020-05-12] MEDS ORDERED: IBUPROFEN 400 MG TABLET (FP) PO PRN (21:04)
[2020-05-12] MEDS ORDERED: METHOCARBAMOL 500 MG TABLET PO PRN (21:04)
[2020-05-12] MEDS: MELATONIN 5 MG TABLETS PO SCH (22:21)
[2020-05-12] MEDS: chlordiazePOXIDE HCL 25 MG CAPSULE PO SCH (22:21)
[2020-05-12] MEDS: THIAMINE HCL 100 MG TABLET (FP) PO SCH (22:21)
[2020-05-13] MEDS: chlordiazePOXIDE HCL 25 MG CAPSULE PO SCH ×4 (06:00→22:01)
--- NOTE | 2020-05-13 09:20 | PN ---
"[facility] CIWA - CIWA Score Nausea/Vomitin-Mild Nausea/No Vomiting Muscle Tremors: 2 Anxiety: 4-Mod. Anxious/Guarded Agitation: 4-Moderately Restless Paroxysmal Sweats: No Perspiration Orientation: 0-Oriented Tacttile Disturbances: 0-None Auditory Disturbances: 0-None Visual Disturbances: 0-None Headache: 0-None Present CIWA-Ar Total Score: 11 BHS Progress Note (SOAP) Subjective: Pt states he gave apple juice for UDS in [facility]. He states that he takes Klonopin 2 mg bid He states that he takes Suboxone 16 mg daily Objective: 05/13/20 09:12 PE Gnl: WDWN MS: agitated, verbal altercation with another patient, condition 10 called ~8:30 am CN; EOMI Motor: moves limbs well Gait: steady Labs: none at this time Home Medications Medication Instructions Recorded Buspirone HCl [Buspar -] 10 mg PO BID #60 tablet 02/24/20 Mirtazapine [Remeron -] 15 mg PO HS #30 tablet 02/24/20 Gabapentin 300 mg PO TID 03/24/20 Olanzapine [Zyprexa -] 15 mg PO DAILY 03/24/20 Albuterol Sulfate Inhaler - 2 inh PO Q4H 03/25/20 [Ventolin Hfa Inhaler -] Home Medication List Medication Instructions Recorded Confirmed Type Gabapentin 300 mg PO TID 03/24/20 05/12/20 History Olanzapine [Zyprexa -] 15 mg PO DAILY 03/24/20 05/12/20 History Albuterol Sulfate Inhaler - 2 inh PO Q4H 03/25/20 05/12/20 History [Ventolin Hfa Inhaler -] Active Medications Generic Name Dose Route Start Last Admin Trade Name Freq PRN Reason Stop Dose Admin Acetaminophen 650 mg 05/12/20 21:04 Tylenol - PO Q6H PRN PAIN LEVEL 4 - 6 Acetaminophen 650 mg 05/12/20 21:04 Tylenol - PO Q6H PRN FEVER Al Hydroxide/Mg Hydroxide 30 ml 05/12/20 21:04 Mylanta Oral Suspension - PO Q6H PRN DYSPEPSIA Bismuth Subsalicylate 524 mg 05/12/20 21:04 Pepto-Bismol - PO Q1H PRN DIARRHEA Chlordiazepoxide HCl 50 mg 05/12/20 23:00 05/13/20 06:00 Librium - PO 05/13/20 23:01 50 mg [id number] NAYE Administration Chlordiazepoxide HCl 25 mg 05/14/20 05:00 Librium - PO 05/14/20 23:01 C1H-BGS NAYE Chlordiazepoxide HCl 25 mg 05/12/20 21:04 Librium - PO 05/14/20 23:59 Q4H PRN WITHDRAWAL(CONT SUBST) Chlordiazepoxide HCl 10 mg 05/15/20 05:00 Librium - PO 05/15/20 23:01 [id number] NAYE Chlordiazepoxide HCl 10 mg 05/16/20 05:00 Librium - PO 05/16/20 17:01 Q12H NAYE Chlordiazepoxide HCl 10 mg 05/15/20 00:00 Librium - PO 05/16/20 00:00 Q4H PRN WITHDRAWAL(CONT SUBST) Chlordiazepoxide HCl 10 mg 05/17/20 05:00 Librium - PO 05/17/20 05:01 ONCE@0500 ONE Eucalyptus/Menthol/Phenol/Sorbitol 1 each 05/12/20 21:04 Cepastat Lozenge - MM 05/18/20 21:04 Q4H PRN SORE THROAT Hydroxyzine Pamoate 25 mg 05/12/20 21:04 Vistaril - PO 05/18/20 21:06 Q4HWA PRN ANXIETY Ibuprofen 400 mg 05/12/20 21:04 Motrin - PO Q6H PRN PAIN LEVEL 1 - 3 Influenza Virus Vaccine 60 mcg 05/14/20 12:00 Flulaval Quad [id number] Syr IM 05/14/20 12:01 .ONCE ONE Magnesium Citrate 300 ml 05/12/20 21:04 Citroma - PO Q48H PRN CONSTIPATION Magnesium Hydroxide 30 ml 05/12/20 21:04 Milk Of Magnesia - PO PRN PRN CONSTIPATION Melatonin 5 mg 05/12/20 22:00 05/12/20 22:21 Melatonin PO 5 mg HS NAYE Administration Methocarbamol 500 mg 05/12/20 21:04 Robaxin - PO 05/18/20 21:04 Q6H PRN MUSCLE SPASMS Nicotine 14 mg 05/13/20 10:00 Nicoderm Patch - TD DAILY NAYE Nicotine Polacrilex 2 mg 05/12/20 21:04 Nicorette Gum - BUC Q2H PRN NICOTINE REPLACEMENT RX Ondansetron HCl 4 mg 05/12/20 21:04 Zofran Odt - SL Q8H PRN Nausea/Vomiting Pneumococcal Polyvalent Vaccine 0.5 ml 05/13/20 12:00 Pneumovax - IM 05/13/20 12:01 .ONCE ONE Multivit/Folic Acid/Iron 1 tab 05/13/20 10:00 Vitamins (Sjr) - PO DAILY NAYE Thiamine HCl 100 mg 05/12/20 22:00 05/12/20 22:21 Vitamin B1 - PO 100 mg HS NAYE Administration Vital Signs Temperature 97.6 F 05/12/20 22:03 Pulse Rate 121 H 05/12/20 22:03 Respiratory Rate 19 05/12/20 22:03 Blood Pressure 125/66 05/12/20 22:03 O2 Sat by Pulse Oximetry (%) 97 05/12/20 21:45 05/13/20 09:14 Dell Ayala, 1995 Search Date: 05/13/2020 09:11:03 AM The Drug Utilization Report below displays all of the controlled substance prescriptions, if any, that your patient has filled in the last twelve months. The information displayed on this report is compiled from pharmacy submissions to the Department, and accurately reflects the information as submitted by the pharmacies. This report was requested by: Yoon Tolliver | Reference #: [id number] Others' Prescriptions Patient Name: Dell Ayala Date: 1995 Address: [address] [place] [id number] Sex: Male Rx Written Rx Dispensed Drug Quantity Days Supply Prescriber Name 01/06/2020 01/06/2020 suboxone 8 mg-2 mg sl film 30 30 PeanAmbrosio 01/06/2020 01/06/2020 suboxone 4 mg-1 mg sl film 30 30 PeanAmbrosio 12/24/2019 12/25/2019 suboxone 8 mg-2 mg sl film 15 15 Yvette Washburn EMERGENCY MEDICINE SPECIALIST- Bc 12/16/2019 12/18/2019 suboxone 4 mg-1 mg sl film 15 15 Ambrosio Pena Date: 1995 Address: [place] [address] Sex: Male Rx Written Rx Dispensed Drug Quantity Days Supply Prescriber Name 05/12/2020 05/12/2020 clonazepam 1 mg tablet 14 7 Woody Hewitt MD 05/12/2020 05/12/2020 suboxone 8 mg-2 mg sl film 14 7 Woody Hewitt MD 04/06/2020 04/06/2020 suboxone 8 mg-2 mg sl film 3 3 Woody Hewitt MD Date: 1995 Address: [place] [address] Sex: Male Rx Written Rx Dispensed Drug Quantity Days Supply Prescriber Name 12/15/2019 12/15/2019 suboxone 8 mg-2 mg sl film 14 14 Alva Mendez DO Date: 1995 Address: [address] [address] Sex: Male Rx Written Rx Dispensed Drug Quantity Days Supply Prescriber Name 03/07/2020 03/07/2020 suboxone 8 mg-2 mg sl film 15 15 Puneet Gongora () Date: 1995 Address: [address] [place], [place] [id number] Sex: Male Rx Written Rx Dispensed Drug Quantity Days Supply Prescriber Name 01/26/2020 01/26/2020 buprenorphine-naloxone 8-2 mg sl tablet 14 14 Kelle Mandel 01/26/2020 01/26/2020 buprenorphine-naloxone 2-0.5 mg sl tablet 28 14 Kelle Mandel Assessment: 05/13/20 09:14 1. Alcohol withdrawal, uncomplicated 2. Buprenorphine maintenance 3. Agitation 4. UDS repeated, done ~9am today, UDS positive for BZO and BUP 05/13/20 09:15 Plan: 1. Librium detox protocol 2. With pts permission, will check his belongings, he states his Suboxone rx is with his prescriptions. Addendum Pt has 14 strips of Suboxone in his belongings, each is 8/2mg Will place order for Suboxone 8/2 bid"
[2020-05-13 09:59] LABS: ALBUMIN 3.2 g/dl (3.4-5.0); BILIRUBIN,TOTAL 0.2 mg/dL (0.2-1); BLOOD UREA NITROGEN 16.9 mg/dL (7-18); CALCIUM 8.4 mg/dL (8.5-10.1); CREATININE 0.8 mg/dL (0.55-1.3); POTASSIUM 4.3 mmol/L (3.5-5.1); TOT PROT 6.6 g/dl (6.4-8.2)
[2020-05-13] MEDS ORDERED: PRENATAL VITAMINS W/ FOLIC ACID TABLET (FP) PO SCH (10:00)
[2020-05-13] MEDS ORDERED: ALBUTEROL SO4 HFA INHALER IH SCH (10:00)
[2020-05-13] MEDS ORDERED: NICOTINE 14 MG/24 HOURS TOPICAL PATCH TD SCH (10:00)
[2020-05-13] MEDS ORDERED: BUPRENORPHINE/NALOXONE 8 MG/2 MG FILM PACKET SL SCH ×2 (10:00→18:00)
[2020-05-13 10:08] LABS: HEMATOCRIT 36.4 % (35.4-49); HEMOGLOBIN 12.3 GM/dL (11.7-16.9); MCH 29.5 pg (25.7-33.7); MCHC 33.8 g/dl (32.0-35.9); MEAN CELL VOLUME 87.1 fl (80-96); PLATELET COUNT 283 K/MM3 (134-434); RBC 4.18 M/mm3 (4.00-5.60); RDW 14.9 % (11.9-15.9); WHITE BLOOD COUNT 5.3 K/mm3 (4.0-10.0)
[2020-05-13] MEDS ORDERED: AMMONIUM LACTATE 12% LOTION 225 GM BOTTLE TP PRN (10:51)
[2020-05-13] MEDS ORDERED: PNEUMOCOCCAL 23 VACCINE 0.5 ML VIAL IM ONE (12:00)
[2020-05-13] MEDS ORDERED: ALBUTEROL SO4 HFA INHALER IH PRN (12:47)
--- NOTE | 2020-05-13 16:07 | CONSULT ---
[facility] Psychiatric Consult - Data Date of interview: 05/13/20 Admission source: [facility] Identifying data: Patient is a 24 year old single male, without children, unemployed, homeless, and is supported with A benefits. This is one of multiple admissions for patient. Patient admitted to for alcohol dependence. Substance Abuse History: Smoking Cessation. Smoking history: Current every day smoker. Have you smoked in the past 12 months: Yes. Aproximately how many cigarettes per day: 20. Hx Chewing Tobacco Use: No. Initiated information on smoking cessation: Yes. 'Breaking Loose' booklet given: 05/12/20. - Substance & Tx. History. Hx Alcohol Use: Yes. Substance Use Type: Alcohol. Hx Substance Use Treatment: Yes ([facility]). - Substances abused. Alcohol. Substance route: Oral. Frequency: Daily. Amount used: 2 pints Gin. Age of first use: 13. Date of last use: 05/12/20 Medical History: Asthma Psychiatric History: Patient presents as highly irritable. Patient marginally cooperative with data analyst report writer. Unwilling to elaborate on his psychiatric history. Patient only stating that he was recently admitted to [facility] last month and was prescribed haldol +remeron + seroquel +thorazine + Suboxone. States that he was only given a prescription of suboxone upon discharge. Patient reports a diagnosis of ADHD + Depression + Anxiety disorder. Patient is totally lost in follow up care. Mr. Ayala denies history of suicide attempt. Physical/Sexual Abuse/Trauma History: Not discussed. Mental Status Exam - Mental Status Exam Alert and Oriented to: Time, Place, Person Cognitive Function: Good Patient Appearance: Well Groomed Mood: Irritable (Very irritable) Affect: Mood Congruent Patient Behavior: Agitated (Marginally cooperative) Speech Pattern: Clear Voice Loudness: Normal Thought Process: Goal Oriented Thought Disorder: Not Present Hallucinations: Denies Suicidal Ideation: Denies Homicidal Ideation: Denies Insight/Judgement: Poor Sleep: Poorly Appetite: Fair Muscle strength/Tone: Normal Gait/Station: Normal Psychiatric Findings - Problem List ([place] 1, 2,3) (1) Mood disorder Current Visit: Yes Status: Chronic (2) Substance-induced sleep disorder Current Visit: Yes Status: Acute (3) Alcohol dependence with withdrawal, uncomplicated Current Visit: Yes Status: Acute (4) History of attention deficit hyperactivity disorder (ADHD) Current Visit: No Status: Chronic (5) Substance induced mood disorder Current Visit: Yes Status: Acute - Initial Treatment Plan Initial Treatment Plan: Psychoeducation provided. Detoxification in progress. Patient willing to accept seroquel. Will order Seroquel 50mg daily + 100mg HS. Benefits and side effects discussed. Verbal consent given.
[2020-05-13] MEDS ORDERED: QUEtiapine FUMARATE 100 MG TABLET (FP) PO SCH (22:00)
[2020-05-13] MEDS: MELATONIN 5 MG TABLETS PO SCH (22:01)
[2020-05-13] MEDS: THIAMINE HCL 100 MG TABLET (FP) PO SCH (22:01)
[2020-05-14] MEDS ORDERED: chlordiazePOXIDE HCL 25 MG CAPSULE PO SCH (05:00)
[2020-05-14 09:56] VITALS: BP 116/74; PULSE 98; TEMP 97.2
[2020-05-14] MEDS ORDERED: QUEtiapine FUMARATE 50 MG TABLET PO SCH (10:00)
--- NOTE | 2020-05-14 10:07 | DS ---
[facility] Detox Discharge Summary Admission Date: 05/12/20 Discharge Date: 05/14/20 (Pt left AMA) - History Present History: Alcohol Dependence Additional Comments: As per H&P: "24 years old male with 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 His last admission was for the period 03/21/2020-03/30/2020 and he reports that he relapsed about 2 weeks post discharge. He drinks 2 pints of Gin daily. He has medical history of asthma, neuropathy and psych. history of depression, bipolar disorder, ADHD and anxiety. Patient denies suicide attempt/ suicidal ideation at this time. He is unemployed, homeless and reports that he is on parole. 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 Pt left AMA. Pt did not complete the detox protocol. Pt states, nothing "Fkn" works, am out of here". Pt is verbally abusive and cursing at staff. An attempt to let pt stay and complete the detox protocol failed. Pt is encouraged to follow-up with an outpatient CD program and also to follow-up with his pmd but was adamant about the information given. Pt is AOX3, in no acute respiratory distress, full ROM, and ambulatory. Pertinent Past History: h/o alcohol use disorder. - Physical Exam Results Vital Signs: Vital Signs Temperature 97.2 F L 05/14/20 08:32 Pulse Rate 98 H 05/14/20 08:32 Respiratory Rate 20 05/14/20 08:32 Blood Pressure 116/74 05/14/20 08:32 O2 Sat by Pulse Oximetry (%) 100 05/14/20 08:32 Vital Signs 05/14/20 05/14/20 06:31 08:32 Temperature 97.6 F 97.2 F L Pulse Rate 51 L 98 H Respiratory 18 20 Rate Blood Pressure 98/52 L 116/74 O2 Sat by Pulse 99 100 Oximetry (%) Laboratory Last Values WBC 5.3 K/mm3 (4.0-10.0) 05/13/20 07:50 RBC 4.18 M/mm3 (4.00-5.60) 05/13/20 07:50 Hgb 12.3 GM/dL (11.7-16.9) 05/13/20 07:50 Hct 36.4 % (35.4-49) 05/13/20 07:50 MCV 87.1 fl (80-96) 05/13/20 07:50 MCH 29.5 pg (25.7-33.7) 05/13/20 07:50 MCHC 33.8 g/dl (32.0-35.9) 05/13/20 07:50 RDW 14.9 % (11.9-15.9) 05/13/20 07:50 Plt Count 283 K/MM3 (134-434) D 05/13/20 07:50 MPV 9.0 fl (7.5-11.1) 05/13/20 07:50 Sodium 140 mmol/L (136-145) 05/13/20 07:50 Potassium 4.3 mmol/L (3.5-5.1) 05/13/20 07:50 Chloride 106 mmol/L (98-107) 05/13/20 07:50 Carbon Dioxide 30 mmol/L (21-32) 05/13/20 07:50 Anion Gap 5 MMOL/L (8-16) L 05/13/20 07:50 BUN 16.9 mg/dL (7-18) 05/13/20 07:50 Creatinine 0.8 mg/dL (0.55-1.3) 05/13/20 07:50 Est GFR (CKD-EPI)AfAm 142.89 05/13/20 07:50 Est GFR (CKD-EPI)NonAf 123.29 05/13/20 07:50 Random Glucose 122 mg/dL (74-106) H 05/13/20 07:50 Calcium 8.4 mg/dL (8.5-10.1) L 05/13/20 07:50 Total Bilirubin 0.2 mg/dL (0.2-1) 05/13/20 07:50 AST 28 U/L (15-37) 05/13/20 07:50 ALT 37 U/L (13-61) 05/13/20 07:50 Alkaline Phosphatase 70 U/L (45-117) 05/13/20 07:50 Total Protein 6.6 g/dl (6.4-8.2) 05/13/20 07:50 Albumin 3.2 g/dl (3.4-5.0) L 05/13/20 07:50 Syphilis Serology Non-reactive (NONREACTIVE) 05/13/20 07:50 COVID-19 (DANIEL) Not detected (Not Detected) 05/12/20 21:00 Labs noted. Pertinent Admission Physical Exam Findings: withdrawal symptoms. - Treatment Hospital Course: Detox Protocol Followed - Medication Discharge Medications: Ambulatory Orders Buspirone HCl [Buspar -] 10 mg PO BID #60 tablet 02/24/20 Mirtazapine [Remeron -] 15 mg PO HS #30 tablet 02/24/20 Gabapentin 300 mg PO TID 03/24/20 Olanzapine [Zyprexa -] 15 mg PO DAILY 03/24/20 Albuterol Sulfate Inhaler - [Ventolin Hfa Inhaler -] 2 inh PO Q4H 03/25/20 - Diagnosis (1) Alcohol dependence with withdrawal, uncomplicated Current Visit: Yes Status: Acute (2) Asthma Current Visit: Yes Status: Chronic Qualifiers: Asthma severity: mild Asthma persistence: intermittent Asthma complication type: uncomplicated Qualified Code(s): J45.20 - Mild intermittent asthma, uncomplicated (3) Nicotine dependence Current Visit: Yes Status: Chronic Qualifiers: Nicotine product type: cigarettes Substance use status: uncomplicated Qualified Code(s): F17.210 - Nicotine dependence, cigarettes, uncomplicated (4) Benzodiazepine dependence Current Visit: No Status: Chronic (5) Opioid dependence Current Visit: No Status: Chronic - AMA Did Patient Leave Against Medical Advice: Yes
[2020-05-14] MEDS ORDERED: FLU VACCINE (FLULAVAL) PF 60 MCG/0.5 ML SYRINGE 2020-2021 IM ONE (12:00)
[2020-05-14] MEDS ORDERED: PNEUMOC 13-VAL CONJ-DIP CRM/PF 0.5 ML DISP.SYRIN IM ONE (12:00)
[2020-05-15] MEDS ORDERED: chlordiazePOXIDE HCL 10 MG CAPSULE PO PRN
[2020-05-15] MEDS ORDERED: chlordiazePOXIDE HCL 10 MG CAPSULE PO SCH (05:00)
[2020-05-16] MEDS ORDERED: chlordiazePOXIDE HCL 10 MG CAPSULE PO SCH (05:00)
[2020-05-17] MEDS ORDERED: chlordiazePOXIDE HCL 10 MG CAPSULE PO ONE (05:00)
== END 2020-05-14 09:15 | disposition left against medical advice (07) | DRG 770 ==
LOC: YASAS 18:00 → Y3N 20:47
PROVIDERS: ADMIT Allergy & Immunology; ATTEND Allergy & Immunology
PROC: HZ2ZZZZ Detoxification Services for Substance Abuse Treatment (ICD-10-PCS; principal; 2020-05-12)
DX: F10.230 Alcohol dependence with withdrawal, uncomplicated (principal); F11.20 Opioid dependence, uncomplicated; F13.20 Sedative, hypnotic or anxiolytic dependence, uncomplicated; F17.210 Nicotine dependence, cigarettes, uncomplicated; F19.282 Other psychoactive substance dependence with psychoactive substance-induced sleep disorder; F31.9 Bipolar disorder, unspecified; F41.9 Anxiety disorder, unspecified; F90.9 Attention-deficit hyperactivity disorder, unspecified type; F39 Unspecified mood [affective] disorder; F19.24 Other psychoactive substance dependence with psychoactive substance-induced mood disorder; G47.00 Insomnia, unspecified; J45.20 Mild intermittent asthma, uncomplicated; Z88.0 Allergy status to penicillin; Z59.0 Homelessness; Z56.0 Unemployment, unspecified
CPT/HCPCS: 36415; 80053; 85027; 86780; C9803; U0003